=== PATIENT | male | born 1965 | race Caucasian/White ===

== ENCOUNTER 2020-04-19 17:05 | Inpatient (IN) | payer OTHER, SELFPAY ==
[2020-04-19] MEDS ORDERED: Magnesium 2 GM/50 ML BAG (IN WATER) ONE (17:44)
[2020-04-19] MEDS ORDERED: Piperacillin/Tazobactam 4.5 GM VIAL ONE (17:44)
[2020-04-19 18:28] LABS: #Lymphocytes 0.5 thou/uL (1.20-3.40); #Monocytes 0.7 thou/uL (0.11-0.59); %Basophils 0.7 % (0.0-1.0); %Eosinophils 0.2 % (0.0-10.0); %Lymphocytes 9.5 % (21.0-51.0); %Monocytes 13.2 % (0.0-10.0); %Neutrophils 76.4 % (42.0-75.0); Hemoglobin 12.4 g/dL (14.0-18.0); Mean Corpuscular Hemoglobin 32.3 pg (27.0-31.0); Mean Corpuscular Volume 97.9 fL (78.0-98.0); PTT 24.7 sec (22.9-36.1); RBC Distribution Width 18.1 % (11.5-14.5); Red Blood Cell (RBC) Count 3.84 mill/uL (4.70-6.10); White Blood Cell (WBC) Count 5.3 thou/uL (4.8-10.8)
[2020-04-19 18:32] LABS: INR-International Normal Ratio 1.1; Prothrombin Time 14.2 sec (12.0-14.7)
[2020-04-19] MEDS ORDERED: Lorazepam 2 MG/ML VIAL ONE (18:37)
[2020-04-19 18:40] LABS: Albumin 3.8 g/dL (3.5-5.0)
[2020-04-19 18:41] LABS: Chloride 101 mmol/L (98-107); Sodium 142 mmol/L (136-145)
[2020-04-19 18:42] LABS: Calcium 8.4 mg/dL (7.8-10.44); Glucose 77 mg/dL (70-105)
[2020-04-19 18:43] LABS: Globulin 3.6 g/dL (2.4-3.5); Protein, Total 7.4 g/dL (6.0-8.3)
[2020-04-19 18:44] LABS: Anion Gap 18 mmol/L (10-20); Bilirubin, Total 1.2 mg/dL (0.2-1.2); Carbon Dioxide 26 mmol/L (22-29)
[2020-04-19 18:45] LABS: Alkaline Phosphatase 114 U/L (40-110); Potassium 2.8 mmol/L (3.5-5.1)
[2020-04-19 18:46] LABS: Calc. Creatinine Clearance 0 mL/min (70-130); Estimated GFR-MDRD Greater than 90
--- NOTE | 2020-04-19 18:46 | CT ---
CT BRAIN WITHOUT CONTRAST: 04/19/20 HISTORY: Fall, trauma to the head, headache. FINDINGS: No evidence of acute infarct, hemorrhage, midline shift or abnormal extra-axial fluid collections are seen. The ventricular size is appropriate and the basilar cisterns patent. There are changes of mild chronic small vessel ischemic disease in the periventricular white matter. The bony calvarium is int act. The visualized paranasal sinuses and mastoid air cells are well aerated. IMPRESSION: No CT evidence of acute intracranial process. POS: [facility]
[2020-04-19 18:47] LABS: BUN (Urea Nitrogen) 10 mg/dL (8.4-25.7)
[2020-04-19 18:48] LABS: ALT (SGPT) 44 U/L (8-55); AST (SGOT) 59 U/L (5-34)
[2020-04-19 18:49] LABS: Hypochromia SLIGHT = 6-15 cells (100X) (0-5/hpf); Lipase 118 U/L (8-78); MDiff Complete? YES; Mean Platelet Volume 9.8 fL (7.4-10.4); Platelet Count 95 thou/uL (130-400); Platelet Morphology Comment Appears Decreased; Polychromasia SLIGHT = 2-3 cells (100X) (0-2/hpf); Target Cells SLIGHT = 2-5 cells (100X) (0-1/hpf)
[2020-04-19] MEDS ORDERED: D5 1/2 NS w/20 mEq KCL 1,000 ML IV SCH (19:15)
--- NOTE | 2020-04-19 19:54 | PDOC.FPRHP ---
- History of Present Illness Chief Complaint: BRBPR History of Present Illness: 51 y/o M with PMHx afib, etoh abuse, seizures transferred from outside ER for suspected GI bleed. Patient reports central/epigastric cramping abdominal pain that woke him up from sleep at 0600 this AM, followed by 6-7 episodes of BRBPR with some diarrhea. He also endorses some black stools. Denies hematemesis. He also c/o chest tightness that does not radiate, has been constant for the past 4 days. SOB with exertion over the past several days as well. States he is only able to ambulate around the room but not any further before becoming SOB. He drinks 5-6 beers per day, more on game days. Reports last drink was 2 days a go. Has had seizures from ETOH withdrawal in the past. Has seizure disorder since childhood for which he takes dilantin. ED Course: 1L NS, zosyn, ativan CT abd pelvis without inflammation - Allergies/Adverse Reactions Allergies Allergy/AdvReac Type Severity Reaction Status Date / Time acetaminophen [From [place]] Allergy Verified 04/19/20 22:49 haloperidol [From Haldol] Allergy Verified 04/19/20 22:49 hydrocodone [From [place]] Allergy Verified 04/19/20 22:49 - Home Medications Medication Instructions Recorded Confirmed Type Phenytoin Sodium Extended 30 mg PO DAILY 04/19/20 04/19/20 History [Dilantin] buPROPion HCl [Wellbutrin] 400 mg PO HS 04/19/20 04/19/20 History - History PMHx: seizures, arrhythmia with loop recorder, ETOH abuse with previous DTs PSHx: R shoulder surgery, appendectomy FHx: unknown Social: daily etoh use 5-6 beers per day, more on weekends; denies drug use, tobacco use - Review of Systems General: reports: fever/chills Eyes: denies: vision changes ENT: denies: nasal congestion, rhinorrhea Respiratory: reports: shortness of breath. denies: cough, congestion Cardiovascular: reports: chest pain, palpitation. denies: edema Gastrointestinal: reports: diarrhea, abdominal pain, GI bleeding. denies: nausea, vomiting, constipation Genitourinary: denies: dysuria Skin: denies: rashes Musculoskeletal: denies: pain Neurological: denies: syncope, weakness - Vital signs BP: 118/65 HR: 120 RR: 18 Tmax: 100.5 F Pox: 96 % on RA Wt: 64.2 kg - Physical Exam Constitutional: NAD, awake, alert and oriented HEENT: PERRLA, conjunctiva clear, no scleral icterus, grossly normal vision, grossly normal hearing, other (healing laceration over R eye, healing bruise over L eye) Neck: no LAD Chest: no-tender to palpation Heart: no murmurs/rubs/gallops, pulses present, no edema -Heart: tachycardia Lungs: CTAB, no respiratory distress Abdomen: soft, bowel sounds present, no masses/distention, other (mild e pigastric tenderness) Neurological: no focal deficit Skin: no rash/lesions Heme/Lymphatic: other (bruising to face as noted above) Psychiatric: other (poor health literacy, not forthcoming with information, does not appear depressed or anxious) FMR H&P: Results - Labs Result Diagrams: 04/20/20 03:19 04/20/20 03:30 Lab results: WBC 5.3 thou/uL (4.8-10.8) 04/19/20 18:03 Hgb 12.4 g/dL (14.0-18.0) L 04/19/20 18:03 Hct 37.6 % (42.0-52.0) L 04/19/20 18:03 MCV 97.9 fL (78.0-98.0) 04/19/20 18:03 Plt Count 95 thou/uL (130-400) L 04/19/20 18:03 Neutrophils % 76.4 % (42.0-75.0) H 04/19/20 18:03 Sodium 142 mmol/L (136-145) 04/19/20 18:03 Potassium 2.8 mmol/L (3.5-5.1) L* 04/19/20 18:03 Chloride 101 mmol/L (98-107) 04/19/20 18:03 Carbon Dioxide 26 mmol/L (22-29) 04/19/20 18:03 BUN 10 mg/dL (8.4-25.7) 04/19/20 18:03 Creatinine 0.77 mg/dL (0.7-1.3) 04/19/20 18:03 Glucose 77 mg/dL (70-105) 04/19/20 18:03 Lactic Acid 1.5 mmol/L (0.5-2.2) 04/19/20 18:03 Calcium 8.4 mg/dL (7.8-10.44) 04/19/20 18:03 Total Bilirubin 1.2 mg/dL (0.2-1.2) 04/19/20 18:03 AST 59 U/L (5-34) H 04/19/20 18:03 ALT 44 U/L (8-55) 04/19/20 18:03 Alkaline Phosphatase 114 U/L (40-110) H 04/19/20 18:03 Serum Total Protein 7.4 g/dL (6.0-8.3) 04/19/20 18:03 Albumin 3.8 g/dL (3.5-5.0) 04/19/20 18:03 Lipase 118 U/L (8-78) H 04/19/20 18:03 - EKG Interpretation EKG: sinus tachycardia FMR H&P: A/P - Plan GI Bleed Transferred from outside ED for presumed GI bleed after multiple episodes of BRBPR at home. CT abd/pelvis unremarkable, no obvious signs of colitis or diverticulitis on imaging. Hemoglobin stable at 12. Reports history of ulcers and polyps on previous colonoscopy, many years ago. - f/u FOBT - GI consult in AM - NPO - IV protonix 40 mg BID - Trend H/H - Rocephin & flagyl for possible infection - f/u hepatitis panel ETOH Withdrawal Last drink 2 days ago. Tremulous on exam. History of seizures related to ETOH withdrawal as well as DTs. Suspect hypertension, low-grade fever, tachycardia may be related to active ETOH withdrawal. - ASE protocol: Ativan 2mg q2hr PRN - Thiamine IV - Monitor K, Mg Sepsis Febrile, tachycardia with new diarrhea. s/p some fluid resuscitation in outside ED. s/p zosyn in ED. - f/u blood cx - f/u hepatitis panel - Rocephin & flagyl Hypokalemia K 2.8 on admission. Given 20 meQ IV in ED. Recheck 2.8. No EKG changes. - 40 meq K IV - Recheck BMP in 4 hours - Continue to monitor and replete K Seizure disorder Reports history of seizures since childhood. Subtherapeutic dilantin level today. - Resume home dilantin Pancreatitis Mildly elevated lipase although not quite 3x upper limit of normal. Given hx of etoh abuse, epigastric pain with some radiation to back, suspect an early or mild pancreatitis. - NPO -mIVF -pain control as needed FMR H&P: Upper Level - Plan Date/Time: 04/19/201952 I, [Lisa Jerome], have evaluated this patient and agree with findings/plan as outlined by real estate internship resident. Pertinent changes/additions are listed here. 54 yo M presents as tfx from [place] for suspected lower GIB. Reported 6-7 episodes of loose bloody diarrhea. At [place] they did a CT scan that showed hepatomegaly. No other acute findings. Hb was 12.4 here. Pt reports had colonoscopy several years ago which they found ulcers and polyps. Of note patient has hx of prior alcoholism with admission for DTs. He is tachycardic in the low 100s, mildly hypertensive and febrile at 100.5 Found to be hypokalemic at 2.8. Was given 40mEq KCL PO and started on D5 1/2 NST with KCl. Given 500cc NS bolus, 1mg Ativan and 2g MgS and started on zosyn 4.5g. #Suspected GIB -No gross blood on exam, FOBT collected -Will start on IV pantoprazole BID -Hemodyanmically stable, admit to tele -Monitor for clinical signs of bleeding -Rpt H/H this evening, keep NPO -CT abdomen: Hepatosteatosis. No remarks on cirrhotic changes or pancreatic inflammation -GI consulted from ER but not contacted. Will reach out in AM. #Alcohol wtihdrawal, EtOH abuse -Tremulousness, tachycardic, ASE 12 -Last drink 48 hours ago -Will get alcohol level -Give thiamine -Start ativan PRN since NPO. #Hypokalemia -2.8, initially was told replaced in ER but didn't receive any -40Kcl IV now, repeat potassium #Pancreatitis -Lipase 118. -Pt with epigastric pain, CT abdomen with no findings -Though lipase not elevated >3x ULN, with abd pain and alcohol hx will keep NPO, morphine PRN #Sepsis -Tachycardic, febrile -Likely his tachycardia & fever are from withdrawals more than infectious cause but cannot fully r/o so will continue rocephin & flagyl for tx of presumed GI illness or diverticulitis -Pending blood cultures -Stool cx if continues having loose stools #Hx of seizures -Unknown etiology since pt poor historian -get dilantin level, contine IV dilanitin dvt ppx: SCDs gi ppx: IV pantoprazole BID PCP: OOT/CC Dispo: >2 midnights Addendum - Attending - Attending Attestation Date/Time: 04/20/201928 I personally evaluated the patient and discussed the management with the team. I agree with the History, Examination, Assessment and Plan documented above with any addition or exceptions noted below.
[2020-04-19] MEDS ORDERED: Lorazepam 2 MG/ML VIAL SLOW IVP PRN (22:33)
[2020-04-19] MEDS ORDERED: Sodium Chloride 0.9% (PF) 10 ML VIAL FS PRN (22:35)
[2020-04-19 22:40] VITALS: BMI 22.1
[2020-04-19] MEDS ORDERED: Pantoprazole 40 MG VIAL IVP SCH (22:45)
[2020-04-19] MEDS ORDERED: cefTRIAXone\\ROCEPHIN 1 GM in Sodium Chloride 0.9% 100 ML IVPB SCH (23:00)
[2020-04-19] MEDS ORDERED: Diazepam 5 MG TAB PO SCH (23:30)
[2020-04-19] MEDS ORDERED: Piperacillin/Tazobactam 3.375 GM in Sodium Chloride 0.9% 100 ML IVPB SCH (23:59)
[2020-04-20] MEDS: Thiamine HCl 200 MG/2 ML VIAL SLOW IVP SCH ×2 (00:05→23:30)
[2020-04-20 00:14] LABS: HBCM Index 0.08 S/CO (0-0.79); Hep A IgM AB Non-Reactive (NonReactive); Hep A IgM S/CO 0.27 S/CO (0-0.79); Hep C IgG Ab Non-Reactive (NonReactive); Hep C Index 0.13 S/CO (0-0.79); Hepatitis B Core IgM Abs Non-Reactive (NonReactive)
[2020-04-20] MEDS: cefTRIAXone\\ROCEPHIN 1 GM in Sodium Chloride 0.9% 100 ML IVPB SCH (00:50)
[2020-04-20] MEDS: metroNIDAZOLE 500 MG in Premix Bag 1 BAG IVPB SCH ×3 (00:50→18:23)
[2020-04-20 01:08] LABS: Potassium 2.8 mmol/L (3.5-5.1)
[2020-04-20 01:34] LABS: Hep B Surf Ag NonReactive S/CO (NonReactive)
[2020-04-20] MEDS: Potassium Chloride 20 MEQ in Premix Bag 1 BAG IVPB SCH ×3 (02:10→10:31)
[2020-04-20] MEDS ORDERED: Potassium Chloride 20 MEQ/100 ML PREMIX BAG ONE (03:30)
[2020-04-20] MEDS ORDERED: Fosphenytoin Sodium 100 mg/2 ml Vial ONE (03:30)
[2020-04-20 06:05] LABS: ALT (SGPT) 30 U/L (8-55); AST (SGOT) 38 U/L (5-34); Alkaline Phosphatase 92 U/L (40-110); Anion Gap 14 mmol/L (10-20); BUN (Urea Nitrogen) 8 mg/dL (8.4-25.7); Bilirubin, Total 1.1 mg/dL (0.2-1.2); Calc. Creatinine Clearance 116 mL/min (70-130); Calcium 7.7 mg/dL (7.8-10.44); Carbon Dioxide 23 mmol/L (22-29); Chloride 104 mmol/L (98-107); Estimated GFR-MDRD Greater than 90; Globulin 2.9 g/dL (2.4-3.5); Glucose 102 mg/dL (70-105); Potassium 3.1 mmol/L (3.5-5.1); Protein, Total 5.9 g/dL (6.0-8.3); Sodium 138 mmol/L (136-145)
[2020-04-20] MEDS: Fosphenytoin Sodium 150 MG in Sodium Chloride 0.9% 50 ML IVPB SCH ×4 (09:12→20:05)
[2020-04-20] MEDS: Lactated Ringer's 1,000 ML IV SCH ×3 (09:22→23:30)
[2020-04-20] MEDS: Pantoprazole 40 MG VIAL IVP SCH ×2 (09:22→20:05)
[2020-04-20 09:58] LABS: #Lymphocytes 0.8 thou/uL (1.20-3.40); #Monocytes 0.5 thou/uL (0.11-0.59); #Neutrophils 2.5 thou/uL (1.40-6.50); %Basophils 0.8 % (0.0-1.0); %Eosinophils 1.1 % (0.0-10.0); %Lymphocytes 21.1 % (21.0-51.0); %Monocytes 12.6 % (0.0-10.0); %Neutrophils 64.4 % (42.0-75.0); Hemoglobin 10.9 g/dL (14.0-18.0); Mean Corpuscular HGB CONC 32.3 g/dL (32.0-36.0); Mean Corpuscular Hemoglobin 32.2 pg (27.0-31.0); Mean Corpuscular Volume 99.5 fL (78.0-98.0); Platelet Count 77 thou/uL (130-400); RBC Distribution Width 18.1 % (11.5-14.5); Red Blood Cell (RBC) Count 3.38 mill/uL (4.70-6.10); White Blood Cell (WBC) Count 3.9 thou/uL (4.8-10.8)
[2020-04-20 10:40] LABS: ALT (SGPT) 31 U/L (8-55); AST (SGOT) 37 U/L (5-34); Albumin 3.1 g/dL (3.5-5.0); Alkaline Phosphatase 92 U/L (40-110); Anion Gap 15 mmol/L (10-20); BUN (Urea Nitrogen) 8 mg/dL (8.4-25.7); Bilirubin, Total 1.2 mg/dL (0.2-1.2); Calc. Creatinine Clearance 123 mL/min (70-130); Carbon Dioxide 22 mmol/L (22-29); Chloride 106 mmol/L (98-107); Estimated GFR-MDRD Greater than 90; Glucose 74 mg/dL (70-105); Potassium 3.4 mmol/L (3.5-5.1); Protein, Total 6.1 g/dL (6.0-8.3); Sodium 140 mmol/L (136-145)
--- NOTE | 2020-04-20 10:51 | PRG ---
DATE OF SERVICE: 04/20/2020 Mr. Erwin was admitted with acute alcohol withdrawal as well as bright red blood per rectum. This morning, he is sitting quietly in bed, in no acute distress. In reviewing his lab results, he came in with a hemoglobin of 12.4 and hematocrit of 37.6. He is now at 10.9 and 33.6. We will consult GI to investigate further his GI bleeding. His AST was slightly elevated at 59. Total bilirubin was 1.1. From my clinical standpoint, he is stable and we will continue to monitor for any further signs of alcohol withdrawal. Job ID: [id number]
[2020-04-20] MEDS ORDERED: Potassium Chloride 40 MEQ in Sodium Chloride 0.9% 250 ML 250 ML IVPB SCH (11:15)
--- NOTE | 2020-04-20 11:33 | PDOC.FM ---
- Subjective Subjective: Reports continued epigastric pain, but sleeping comfortably. Currently NPO. Slightly tremulous, reports feeling clammy. BM with blood last night. - Objective MAR Reviewed: Yes Vital Signs & Weight: Vital Signs (12 hours) Temp Pulse Resp BP Pulse Ox 04/20/20 00:10 98.8 F 110 H 14 147/108 H 100 Weight Weight 64.2 kg Result Diagrams: 04/20/20 03:19 04/20/20 03:30 Phys Exam - Physical Examination Constitutional: NAD Neck: supple, full ROM Respiratory: no wheezing, no rales, no rhonchi, clear to auscultation bilateral Cardiovascular: RRR Gastrointestinal: soft, no distention, positive bowel sounds tender to palpation in the mid/upper epigastric region Musculoskeletal: no edema Neurological: non-focal, normal sensation Psychiatric: normal affect Skin: no rash Dx/Plan - Plan Plan: Suspected GIB -FOBT positive -on IV pantoprazole BID -pt remains hemodynamically stable -CT abdomen: Hepatosteatosis. No remarks on cirrhotic changes or pancreatic inflammation -GI consulted; will f/u recs -Hgb: 12.4 > 12 > 10.9 Alcohol wtihdrawal, EtOH abuse -ASE at 0440 of 5 -ativan PRN available -will continue to monitor Hypokalemia -2.8 > 3.1, will replete -will continue to monitor and replete as needed Pancreatitis -Lipase 118; although not 3x above normal, patient's alcohol use and abdominal pain make it likely -CT abdomen with no findings -keep NPO, morphine PRN Sepsis -Tachycardic, febrile; likely 2/2 to withdrawal, but could be infectious -due to possibly infectious cause, will continue rocephin & flagyl for tx of presumed GI illness or diverticulitis -Pending blood cultures -GI is consulted and will f/u recs History of seizures -history is unknown, but pt reports compliance with medication -subtherapeutic levels noted -contine IV dilanitin, will change to PO tomorrow IVF: mIVF Ppx: SCDs and IV pantoprazole BID PCP: out of town Dispo: pending further medical management
[2020-04-20 12:37] LABS: SARS-CoV-2 MS2 Positive; SARS-CoV-2 N Gene Negative; SARS-CoV-2 S Gene Negative; SARS-CoV-2 by NAA Not Detected (NotDetected); SARS-CoV-2 orf1ab Negative
[2020-04-20] MEDS ORDERED: GoLYTELY 4,000 ml Bottle PO SCH (17:00)
[2020-04-21] MEDS: cefTRIAXone\\ROCEPHIN 1 GM in Sodium Chloride 0.9% 100 ML IVPB SCH (01:25)
[2020-04-21] MEDS: metroNIDAZOLE 500 MG in Premix Bag 1 BAG IVPB SCH ×3 (02:05→17:20)
[2020-04-21 05:00] LABS: Band 4 % (5-11); Hemoglobin 11.2 g/dL (14.0-18.0); Lymphocytes 38 % (21-51); MDiff Complete? YES; Mean Corpuscular HGB CONC 32.6 g/dL (32.0-36.0); Mean Platelet Volume 9.7 fL (7.4-10.4); Monocytes 9 % (0-10); Neutrophil 49 % (42-75); Platelet Count 83 thou/uL (130-400); Platelet Morphology Comment Appears Decreased; RBC Distribution Width 17.8 % (11.5-14.5); Red Blood Cell (RBC) Count 3.41 mill/uL (4.70-6.10); White Blood Cell (WBC) Count 3.7 thou/uL (4.8-10.8)
[2020-04-21 05:06] LABS: ALT (SGPT) 27 U/L (8-55); AST (SGOT) 30 U/L (5-34); Albumin 3.1 g/dL (3.5-5.0); Alkaline Phosphatase 92 U/L (40-110); Anion Gap 19 mmol/L (10-20); BUN (Urea Nitrogen) Less than 4 mg/dL (8.4-25.7); Bilirubin, Total 0.8 mg/dL (0.2-1.2); Calc. Creatinine Clearance 116 mL/min (70-130); Calcium 8.1 mg/dL (7.8-10.44); Carbon Dioxide 18 mmol/L (22-29); Chloride 102 mmol/L (98-107); Estimated GFR-MDRD Greater than 90; Globulin 3.1 g/dL (2.4-3.5); Glucose 64 mg/dL (70-105); Potassium 3.4 mmol/L (3.5-5.1); Protein, Total 6.2 g/dL (6.0-8.3); Sodium 136 mmol/L (136-145)
--- NOTE | 2020-04-21 05:40 | PDOC.FM ---
- Subjective Subjective: Patient expresses that he dislikes the bowel prep and reports that he was up using the bathroom all night. Discussed with him the necessity of the bowel prep and he was understanding. Say that his upper epigastric pain has improved. Denies n/v, tremors, diaphoresis. - Objective MAR Reviewed: Yes Vital Signs & Weight: Vital Signs (12 hours) Temp Pulse Resp BP BP Pulse Ox 04/21/20 03:52 98.2 F 104 H 18 136/85 98 04/20/20 23:30 145/97 H 04/20/20 23:15 99.5 F 108 H 16 145/97 H 100 04/20/20 20:00 146/99 H Weight Weight 66 kg I&O: 04/19/20 04/20/20 04/21/20 06:59 06:59 06:59 Intake Total 1500 Output Total 850 Balance 650 Result Diagrams: 04/21/20 04:15 04/21/20 04:15 EKG Reviewed by me: Yes (SR) Phys Exam - Physical Examination Constitutional: NAD Respiratory: no wheezing, no rales, no rhonchi, clear to auscultation bilateral Cardiovascular: RRR, no significant murmur, no rub Gastrointestinal: soft, non-tender, no distention, positive bowel sounds Musculoskeletal: no edema Dx/Plan - Plan Plan: Likely GIB -FOBT positive -on IV pantoprazole BID -GI consulted; EGD and colonoscopy today -Hgb: 12.4 > 12 > 10.9 > 11.2 Alcohol wtihdrawal, EtOH abuse -ASE 7 -will continue to monitor Hypokalemia -2.8 > 3.1 > 3.4, will continue to replete as needed -will continue to monitor -also replete mag and phos Pancreatitis -Lipase 118; although not 3x above normal, patient's alcohol use and abdominal pain make it likely -CT abdomen with no findings -keep NPO, morphine PRN -likely advance diet as tolerated after EGD/Colonoscopy Sepsis -Tachycardic, febrile; likely 2/2 to withdrawal, but could be infectious -due to possibly infectious cause, will continue rocephin & flagyl for tx of presumed GI illness or diverticulitis -Pending blood cultures -GI consulted; see above -will likely dc antibiotics today History of seizures -history is unknown, but pt reports compliance with medication -subtherapeutic levels noted -contine IV dilanitin, will change to PO after procedure today IVF: mIVF Ppx: SCDs and IV pantoprazole BID PCP: out of town Dispo: pending further medical management
[2020-04-21 06:28] LABS: Magnesium 1.2 mg/dL (1.6-2.6); Phosphorus 2.2 mg/dL (2.3-4.7)
--- NOTE | 2020-04-21 07:17 | CON ---
DATE OF CONSULTATION: 04/20/2020 ADDITIONAL REFERRING PHYSICIAN: Dr. Lm Faye, [facility]. REASON FOR CONSULTATION: Abdominal pain, hematochezia, and diarrhea. HISTORY OF PRESENT ILLNESS: Mr. Tj Erwin is a very pleasant 54-year-old male, transferred from [place], [place]. He was seen in the ER there because of abdominal cramping pain, diarrhea, rectal bleeding. As there was no bed available, he was transferred to here. The patient on admission abdominal pain. No nausea or vomiting. No history of fever or chills. He has had no stool today and has no bleeding. On admission, CBC showed hemoglobin of 12.4 and hematocrit 37.6, and hemoglobin dropped down to 10.9 today, hematocrit 33.6. The patient denies recent travel outside the country. No history of recent antibiotic intake. His bowel movements are fairly regular. every other day. He has had mild hematochezia off and on and bleeding was however, this episode started two days ago and he has been passing blood clots and a large amount of bright red blood per rectum. No history of any melena. The patient has had a colonoscopy I believe more than 10 years ago and was told to be negative. There is no family history of any colon cancer. He has no relevant symptoms. ALLERGIES: HALDOL, HYDROCODONE, TYLENOL. SOCIAL HISTORY: He is a smoker. He used to drink alcohol heavily before, but he cut down the alcohol to maybe an occasional beer on game days. one 12 pack of beer until couple of years ago. No history of drug abuse. MEDICAL ILLNESSES: 1. Seizure disorder, on Dilantin. 2. Hypertension, labile in the past, but not taking any medications anymore. 3. He denies history of diabetes, any heart disease, or lung disease, etc. PAST SURGICAL HISTORY: He has had no major surgeries. He has had a colonoscopy more than 10 years ago. FAMILY HISTORY: Father of heart attack. Mother still lives in [place] and she is around 86, and she has some arthritis and some difficulty ambulation. REVIEW OF SYSTEMS: A 10-point system reviewed. CONSTITUTIONAL: No history of any weight loss. No fever or chills. He has good exercise tolerance. HEAD: No chronic headache. No TIA. EYES: No diplopia, no impaired vision. EARS: No hearing loss, no discharge. NOSE: No nose bleed. THROAT: No sore throat. No dysphagia. NECK: No stiffness or any limitation of movement. LUNGS: No chronic coughing, hemoptysis, or dyspnea. CARDIOVASCULAR: No chest pain. No palpitation. No dyspnea, orthopnea, or PND. GI: Abdominal pain, diarrhea, hematochezia. Mild nausea. GENITOURINARY: Not relevant. HEMATOLOGICAL: Not relevant. NEUROPSYCHIATRY: Not relevant. PHYSICAL EXAMINATION: GENERAL: He thin built, appears very comfortable, in no acute distress. He is awake, alert, oriented to time, place, and person. VITAL SIGNS: Afebrile. Pulse is 100, blood pressure is 135/96. HEENT: Conjunctivae are clear. NECK: Supple. No adenitis or thyromegaly noted. CARDIOVASCULAR SYSTEM: Normal heart sounds. LUNGS: Clear to auscultation. ABDOMEN: Soft and nondistended. Abdomen is mildly tender in the epigastric area. There is no rebound, no guarding. EXTREMITIES: Reveal no edema. LABORATORY DATA: Show mild anemia on admission. CBC; WBC 5300, hemoglobin 12.4, hematocrit 37.6, MCV 97.9, platelet count is 95,000. Polymorphs 74, lymphocytes 9, monocytes 13. Today, WBC 3900, hemoglobin is 10.9, hematocrit 33.6, platelet count dropping to 77,000. The liver function tests are basically normal. The bilirubin is 1.2. AST is slightly high at 59, ALT 44, alkaline phosphatase is 114, lipase 118, albumin 3.8. Potassium was 2.8 yesterday, it is coming up to 3.1 today. BUN is 8, creatinine 0.67. LFTs today, bilirubin 1.1, AST 38, ALT 30, alkaline phosphatase 92, albumin 3.0 . CLINICAL IMPRESSION: 1. A 54-year-old male, admitted with abdominal cramping pain, diarrhea, hematochezia. The patient had a negative colonoscopy more than 10 years ago. He has no family history of colon cancer. The symptoms are suggestive of possibly infectious pathology . 2. Seizure disorder. 3. Chronic anxiety. 4. Abnormal LFTs, possibly a chronic liver disease exists because of history of alcohol abuse. He is also thrombocytopenic and makes me wonder if he has chronic liver disease like cirrhosis. RECOMMENDATIONS: 1. Follow up hemoglobin and hematocrit. 2. Abdominal sonogram. 3. Colonoscopy tomorrow and possibly EGD at the same time. I did talk to Mr. Erwin about the procedure and explained about the bowel prep and the potential risks like bleeding, perforation, etc. He fully understood the procedure and agreeable. I will plan for EGD and colonoscopy tomorrow. Job ID: [id number]
[2020-04-21] MEDS: Dextrose 5 % And 0.9 % NaCl 1,000 ML IV SCH ×2 (07:38→17:40)
[2020-04-21] MEDS: Pantoprazole 40 MG VIAL IVP SCH ×2 (07:51→20:50)
[2020-04-21] MEDS ORDERED: PHOS-NAK 1 PKT PACK PO SCH (08:45)
[2020-04-21] MEDS ORDERED: Potassium Chloride 40 MEQ in Premix Bag 1 BAG IVPB SCH (08:45)
[2020-04-21] MEDS: Fosphenytoin Sodium 150 MG in Sodium Chloride 0.9% 50 ML IVPB SCH ×2 (09:46→20:50)
[2020-04-21] MEDS ORDERED: PROPOFOL 200 MG/20 ML VIAL ONE (10:28)
--- NOTE | 2020-04-21 12:05 | PRG ---
DATE OF SERVICE: 04/21/2020 Mr. Erwin is resting quietly in no distress. He has been seen in consultation by Dr. Bolton. He has recommended we do an abdominal sonogram. He also plans to do colonoscopy and possibly EGD today given his GI bleed. We have pending at this time an abdominal ultrasound. Job ID: [id number]
[2020-04-21] MEDS: Potassium Chloride 20 MEQ in Premix Bag 1 BAG IVPB SCH ×3 (12:43→20:50)
[2020-04-21] MEDS ORDERED: Ondansetron HCl/PF 4 MG/2 ML Vial IVP PRN (15:10)
[2020-04-21] MEDS ORDERED: Promethazine HCl 25 MG/ML VIAL SLOW IVP PRN (15:10)
[2020-04-21] MEDS ORDERED: Promethazine HCl 25 MG/ML VIAL IM PRN (15:10)
[2020-04-21] MEDS ORDERED: Promethazine HCl 25 MG/ML VIAL ONE (15:11)
[2020-04-21 15:14] LABS: Hematocrit 31.8 % (37.5-51.0); RBC Folate Test Component 792 ng/mL (>498)
[2020-04-21] MEDS ORDERED: Fentanyl 100 MCG/2 ML VIAL ONE (15:44)
[2020-04-21] MEDS ORDERED: Potassium Chloride 20 MEQ TAB PO SCH (16:30)
[2020-04-21] MEDS ORDERED: Ondansetron HCl/PF 4 MG in Sodium Chloride 0.9% 50 ML IVPB PRN (17:07)
[2020-04-21] MEDS ORDERED: Ondansetron ODT 4 MG TAB PO PRN (17:11)
[2020-04-21] MEDS: Lactated Ringer's 1,000 ML IV SCH (17:33)
--- NOTE | 2020-04-21 19:22 | OP ---
DATE OF PROCEDURE: 04/21/2020 PROCEDURE PERFORMED: Endoscopy. PREOPERATIVE DIAGNOSES: Hematochezia, diarrhea, and abdominal pain, epigastric. DESCRIPTION OF PROCEDURE: Informed consent was obtained from the patient. He was sedated with total intravenous anesthesia. The bite block was placed, and the endoscope was advanced easily to the second portion of the duodenum, and retroflexion was performed in the stomach. The esophagus had grade D erosive esophagitis circumferentially around the distal 3 to 4 cm of the esophagus. Biopsies were obtained from this area. There is mild stricturing of the distal esophagus. However, the scope could be passed through. The stomach had erythematous gastritis in the antrum. Biopsies were obtained to rule out H pylori. The body of the stomach and retroflexed views in the stomach were unremarkable. There was a 3 cm hiatal hernia. There was erythematous duodenitis in the first portion of the duodenum, and the second portion of the duodenum was normal. Random biopsies were taken from the duodenum to rule out celiac disease. The patient was turned around. Rectal exam was performed and was normal. The preparation quality was adequate. The colonoscope was advanced without difficulty to the terminal ileum. The mucosa of the terminal ileum was normal. The ileocecal valve and appendiceal orifice were clearly identified. There was moderate diverticulosis throughout the colon. Random biopsies were obtained from the ascending, transverse, descending, and sigmoid colon. The colonoscopy was otherwise normal. Retroflexed views in the rectum revealed small to moderate internal hemorrhoids. IMPRESSION: 1. Severe grade D erosive circumferential esophagitis in the distal esophagus. 2. Erythematous antral gastritis and duodenitis. 3. Diverticulosis throughout the colon. 4. Moderate internal hemorrhoids. 5. Otherwise normal colonoscopy to the terminal ileum. RECOMMENDATIONS: 1. Advance diet. 2. Await histopathology. 3. Obtain stool studies if the diarrhea persists. Job ID: [id number]
[2020-04-21] MEDS: Morphine 2 MG/ML VIAL SLOW IVP PRN (19:55)
[2020-04-21] MEDS ORDERED: Dextrose 50% Abboject 50 ML SYRINGE ONE (20:48)
[2020-04-21] MEDS: Thiamine HCl 200 MG/2 ML VIAL SLOW IVP SCH (23:25)
[2020-04-22] MEDS: Morphine 2 MG/ML VIAL SLOW IVP PRN ×4 (00:10→20:24)
[2020-04-22] MEDS: cefTRIAXone\\ROCEPHIN 1 GM in Sodium Chloride 0.9% 100 ML IVPB SCH (00:10)
[2020-04-22] MEDS: metroNIDAZOLE 500 MG in Premix Bag 1 BAG IVPB SCH (00:10)
[2020-04-22] MEDS: Lactated Ringer's 1,000 ML IV SCH (05:20)
--- NOTE | 2020-04-22 08:40 | PDOC.FM ---
- Subjective Subjective: Reports some nausea after his procedure yesterday, limited PO intake, and continued diarrhea after bowel prep. Denies blood in his stool, chest pain, SOB. Reports improvement in his abdominal pain. - Objective MAR Reviewed: Yes Vital Signs & Weight: Vital Signs (12 hours) Temp Pulse Resp BP BP Pulse Ox 04/22/20 04:00 98.7 F 77 16 141/77 H 98 04/21/20 23:20 98.6 F 89 14 115/74 115/74 97 Weight Weight 64.1 kg I&O: 04/21/20 04/22/20 04/23/20 06:59 06:59 06:59 Intake Total 1500 2800 Output Total 850 600 Balance 650 2200 Result Diagrams: 04/21/20 04:15 04/21/20 04:15 EKG Reviewed by me: Yes (SR) Phys Exam - Physical Examination Constitutional: NAD Respiratory: no wheezing, no rales, no rhonchi, clear to auscultation bilateral Cardiovascular: RRR, no significant murmur, no rub Gastrointestinal: soft, non-tender, no distention, positive bowel sounds Musculoskeletal: no edema Neurological: non-focal, moves all 4 limbs Dx/Plan - Plan Plan: GI Bleed -FOBT positive -on IV pantoprazole BID -GI consulted; EGD and colonoscopy on 04/21 -Endoscopy: severe grade D erosive circumferential esophagitis, erythematous antral gastritis and duodenitis, diverticulosis, mod. internal hemorrhoids -Hgb stable; unsure of today's level as patient is refusing labs this morning Alcohol abuse -ASE protocol -monitor for withdrawal -ASE of 5 Hypokalemia -refusing labs this morning -will continue to monitor -also replete mag and phos Pancreatitis, improved -attempted to trend lipase, but patient is refusing all labs this am -now has regular diet Sepsis -Tachycardic, febrile; likely 2/2 to withdrawal, infectious cause unlikely -blood cx: NGTD -GI consulted; see above -abx dc'd on 04/22 History of seizures -history is unknown, but pt reports compliance with medication -subtherapeutic levels noted -home meds IVF: SL Ppx: SCDs and IV pantoprazole BID PCP: out of town Dispo: pending further medical management and GI recs
[2020-04-22] MEDS: Pantoprazole 40 MG VIAL IVP SCH ×2 (09:19→20:23)
[2020-04-22 10:56] LABS: #Eosinphils 0.1 thou/uL (0.0-0.7); #Lymphocytes 0.8 thou/uL (1.20-3.40); #Monocytes 0.6 thou/uL (0.11-0.59); #Neutrophils 3.8 thou/uL (1.40-6.50); %Basophils 0.6 % (0.0-1.0); %Eosinophils 1.5 % (0.0-10.0); %Lymphocytes 15.5 % (21.0-51.0); %Monocytes 11.8 % (0.0-10.0); %Neutrophils 70.6 % (42.0-75.0); Hemoglobin 11.8 g/dL (14.0-18.0); Mean Corpuscular HGB CONC 30.8 g/dL (32.0-36.0); Mean Corpuscular Hemoglobin 31.9 pg (27.0-31.0); Mean Platelet Volume 9.3 fL (7.4-10.4); Platelet Count 106 thou/uL (130-400); Red Blood Cell (RBC) Count 3.68 mill/uL (4.70-6.10); White Blood Cell (WBC) Count 5.4 thou/uL (4.8-10.8)
[2020-04-22 11:02] LABS: ALT (SGPT) 23 U/L (8-55); AST (SGOT) 23 U/L (5-34); Albumin 3.2 g/dL (3.5-5.0); Alkaline Phosphatase 95 U/L (40-110); Anion Gap 20 mmol/L (10-20); BUN (Urea Nitrogen) Less than 4 mg/dL (8.4-25.7); Bilirubin, Total 0.6 mg/dL (0.2-1.2); Calc. Creatinine Clearance 116 mL/min (70-130); Calcium 8.2 mg/dL (7.8-10.44); Carbon Dioxide 19 mmol/L (22-29); Chloride 101 mmol/L (98-107); Estimated GFR-MDRD Greater than 90; Globulin 3.2 g/dL (2.4-3.5); Glucose 74 mg/dL (70-105); Magnesium 1.3 mg/dL (1.6-2.6); Potassium 3.3 mmol/L (3.5-5.1); Protein, Total 6.4 g/dL (6.0-8.3); Sodium 137 mmol/L (136-145)
[2020-04-22 11:12] LABS: MDiff Complete? YES; Platelet Morphology Comment Appears Decreased; Polychromasia SLIGHT = 2-3 cells (100X) (0-2/hpf)
[2020-04-22 11:26] LABS: Lipase 54 U/L (8-78); Phosphorus 2.8 mg/dL (2.3-4.7)
--- NOTE | 2020-04-22 11:28 | ULT ---
EXAM: US Gallbladder RUQ CLINICAL HISTORY: Cirrhosis. COMPARISON: None. FINDINGS: Pancreas: Obscured by bowel gas Liver:Heterogeneous echotexture which may be due to hepatic steatosis or hepatocellular disease. Subs equent limited evaluation for hepatic masses and intrahepatic biliary dilatation. Right hepatic lobe: 14.3 cm Gallbladder: No sonographic evidence of cholelithiasis, gallbladder wall thickening or pericholecysti c fluid. Rodriguez's sign:Negative Portal Vein: Patent. Appropriate directional flow Bile ducts: 0.51 cm common bile duct diameter Right kidney: No hydronephrosis. Right kidney measures 6.9 x 5.4 x 10.6 cm in length. IMPRESSION: 1. Heterogeneous echotexture of the liver which may be due to hepatic steatosis or hepatocellular dis ease. Correlation made with an abdomen pelvis CT 04/19/2020 favors hepatic steatosis.
--- NOTE | 2020-04-22 11:39 | PRG ---
DATE OF SERVICE: 04/22/2020 Mr. Erwin is very pleasant this morning. He is sitting in bed, in no distress. He underwent endoscopy and colonoscopy yesterday per Dr. Yoon. He had findings of erosive esophagitis in the distal esophagus along with antral gastritis and duodenitis. He had diverticulosis throughout the colon and moderate internal hemorrhoids. We will continue him on PPI, advance his diet in anticipation of possibly discharging him tomorrow. On admission, he did have some elevations of his AST, though not his ALT. Given his drinking history, I think it would be appropriate to do a right upper quadrant ultrasound to make certain there are no changes consistent with cirrhosis. Job ID: [id number]
[2020-04-22] MEDS ORDERED: PHOS-NAK 1 PKT PACK PO SCH (12:30)
[2020-04-22] MEDS ORDERED: Potassium Chloride 20 MEQ TAB PO SCH (12:30)
--- NOTE | 2020-04-22 15:25 | PDOC.BPN ---
- Brief Progress Note TRANSITION OF CARE NOTE Patient is a 54 yo male with PMHx of seizure disorder and alcohol use presents to ED on 04/19 with bright red blood per rectum. The patient also had signs alcohol withdrawal, sepsis, and pancreatitis patient was admitted for further workup. CT abd pelvis showed hepatosteatosis, no remarks on cirrhosis or pancrea tic inflammation. Patient received ceftriaxone, metronidazole and blood cultures for sepsis workup which was negative. ASE protocol was in place and patient was monitored for signs/symptoms of withdrawal with ativan available PRN. Patient was initially kept NPO for pancreastitis concerns and pending GI workup. GI was consulted and patient underwent endoscopy which showed grade D severe erosive esophagitis, gastritis, duodenitis, diverticulosis, and internal hemorrhoids. Multiple biopsies were taken. Abdominal US showed findings consistent with hepatic steatosis or hepatocellular disease. Based on GI recommendations, patient switched to PO meds and given diet. Antibiotics were also discontinued on 04/22. If patient continues to have diarrhea, could consider getting stool studies. Will continue to follow up GI recs.
[2020-04-22] MEDS ORDERED: hydrOXYzine 10 MG TAB PO SCH (22:30)
[2020-04-22] MEDS: Thiamine HCl 200 MG/2 ML VIAL SLOW IVP SCH (22:33)
[2020-04-23] MEDS: Morphine 2 MG/ML VIAL SLOW IVP PRN ×3 (01:12→15:27)
--- NOTE | 2020-04-23 06:29 | PDOC.FM ---
- Subjective Subjective: Pt resting in bed. Complains of worsening anxiety at night and night sweats. Other than that no complaints. He does endorse dark stools and occasional abdominal pain, but no CP, SOB. Tolerating PO without difficulty. As per tele, patients pulse was 97-140s overnight sinus rhythm. 90s on this morning. - Objective MAR Reviewed: Yes Vital Signs & Weight: Vital Signs (12 hours) Temp Pulse Resp BP BP Pulse Ox 04/23/20 04:00 98.2 F 97 13 139/97 H 98 04/22/20 23:45 131/98 H 04/22/20 20:00 135/90 04/22/20 19:20 95 04/22/20 19:15 99.5 F 118 H 13 135/90 95 Weight Weight 64.1 kg I&O: 04/21/20 04/22/20 04/23/20 06:59 06:59 06:59 Intake Total 1500 2800 700 Output Total 850 600 650 Balance 650 2200 50 Result Diagrams: 04/22/20 10:26 04/23/20 10:01 Phys Exam - Physical Examination Constitutional: NAD Neck: supple, full ROM Respiratory: no wheezing, clear to auscultation bilateral Cardiovascular: RRR, no significant murmur Gastrointestinal: soft, non-tender, positive bowel sounds Musculoskeletal: no edema Neurological: moves all 4 limbs Psychiatric: normal affect, A&O x 3 Skin: no rash Dx/Plan - Plan Plan: GI Bleed -FOBT positive -on IV pantoprazole BID -GI consulted; EGD and colonoscopy on 04/21 -Endoscopy: severe grade D erosive circumferential esophagitis, erythematous antral gastritis and duodenitis, diverticulosis, mod. internal hemorrhoids -Hgb stable; unsure of today's level as labs are not back yet will monitor Alcohol abuse -ASE protocol -monitor for withdrawal -ASE of 8 overnight Hypokalemia -refusing labs this morning -will continue to monitor -also replete mag and phos Pancreatitis, improved -tolerating PO, improved pain SIRS, resolved -Tachycardic, febrile on admission; likely 2/2 to withdrawal, infectious cause unlikely. -blood cx: NGTD -GI consulted; see above -abx dc'd on 04/22 History of seizures -history is unknown, but pt reports compliance with medication -subtherapeutic levels noted -home meds IVF: SL Ppx: SCDs and IV pantoprazole BID PCP: out of town Dispo: pending further medical management and GI recs
--- NOTE | 2020-04-23 08:16 | PRG ---
DATE OF SERVICE: 04/22/2020 SUBJECTIVE: This 54-year-old male hospitalized with diarrhea, abdominal pain, hematochezia. The patient had mild thrombocytopenia. He has history of alcohol Abdominal sonogram showed no liver masses and no evidence of liver cirrhosis. A colonoscopy done by Dr. Yoon yesterday showed no active colitis. Exam was basically unremarkable up to ileum. It was felt that patient mostly has infectious diarrhea. EGD which revealed severe erosive esophagitis. The patient is doing well today. No abdominal pain. No nausea or vomiting. Tolerating diet. OBJECTIVE: GENERAL: Appears comfortable. VITAL SIGNS: Stable, afebrile. Pulse is 113, blood pressure is 134/87. CARDIOVASCULAR: ABDOMEN: LABORATORY DATA: potassium 3.3, otherwise bilirubin 1.3. LFTs normal. RECOMMENDATIONS: 1. Diet as tolerated. 2. May consider discharge home tomorrow on PPI. Job ID: [id number]
[2020-04-23] MEDS: Pantoprazole 40 MG VIAL IVP SCH (09:40)
[2020-04-23 10:15] VITALS: TEMP 98.5
[2020-04-23 10:55] LABS: Albumin 3.1 g/dL (3.5-5.0)
[2020-04-23 10:56] LABS: Chloride 103 mmol/L (98-107); Potassium 3.7 mmol/L (3.5-5.1); Sodium 136 mmol/L (136-145)
[2020-04-23 10:57] LABS: Calcium 8.1 mg/dL (7.8-10.44); Glucose 94 mg/dL (70-105)
[2020-04-23 10:58] LABS: Globulin 3.1 g/dL (2.4-3.5); Protein, Total 6.2 g/dL (6.0-8.3)
[2020-04-23 10:59] LABS: Anion Gap 21 mmol/L (10-20); Bilirubin, Total 0.5 mg/dL (0.2-1.2); Carbon Dioxide 16 mmol/L (22-29)
[2020-04-23 11:00] LABS: Alkaline Phosphatase 90 U/L (40-110)
[2020-04-23 11:01] LABS: Calc. Creatinine Clearance 124 mL/min (70-130); Estimated GFR-MDRD Greater than 90; Phosphorus 3.1 mg/dL (2.3-4.7)
[2020-04-23 11:02] LABS: BUN (Urea Nitrogen) 4 mg/dL (8.4-25.7)
[2020-04-23 11:03] LABS: ALT (SGPT) 20 U/L (8-55); AST (SGOT) 19 U/L (5-34); Magnesium 1.3 mg/dL (1.6-2.6)
[2020-04-23 12:49] LABS: Hemoglobin 12.1 g/dL (14.0-18.0); Mean Corpuscular HGB CONC 32.1 g/dL (32.0-36.0); Mean Corpuscular Hemoglobin 32.5 pg (27.0-31.0); Mean Platelet Volume 10.3 fL (7.4-10.4); Platelet Count 78 thou/uL (130-400); RBC Distribution Width 18.6 % (11.5-14.5); Red Blood Cell (RBC) Count 3.73 mill/uL (4.70-6.10); White Blood Cell (WBC) Count 4.9 thou/uL (4.8-10.8)
[2020-04-23 13:17] LABS: Anisocytosis SLIGHT = 6-15 cells (100X) (0-5/hpf); Eosinophils 4 % (0-10); Lymphocytes 17 % (21-51); MDiff Complete? YES; Monocytes 8 % (0-10); Neutrophil 68 % (42-75); Ovalocytes SLIGHT = 2-5 cells (100X) (0-1/hpf); Platelet Morphology Comment Appears Decreased; Polychromasia SLIGHT = 2-3 cells (100X) (0-2/hpf)
[2020-04-23] MEDS ORDERED: Magnesium 2 GM/50 ML 2 GM in Sodium Chloride 0.9% 100 ML IVPB SCH (14:15)
[2020-04-23 15:12] LABS: Anion Gap 17 mmol/L (10-20); BUN (Urea Nitrogen) Less than 4 mg/dL (8.4-25.7); Calc. Creatinine Clearance 126 mL/min (70-130); Calcium 8.4 mg/dL (7.8-10.44); Carbon Dioxide 20 mmol/L (22-29); Chloride 102 mmol/L (98-107); Estimated GFR-MDRD Greater than 90; Glucose 106 mg/dL (70-105); Potassium 3.5 mmol/L (3.5-5.1); Sodium 135 mmol/L (136-145)
[2020-04-23] MEDS ORDERED: Magnesium 2 GM/50 ML 2 GM in Premix Bag 1 BAG IVPB SCH (15:45)
[2020-04-23] MEDS ORDERED: hydrOXYzine 25 MG TAB PO PRN (16:17)
[2020-04-23 16:45] VITALS: BP 146/99
--- NOTE | 2020-04-23 18:34 | PRG ---
DATE OF SERVICE: 04/23/2020 Please see the note from which I agree. The patient was seen, evaluated, discussed, and examined with the residents by bedside. This gentleman is hospital day 4 for GI bleed, and GI scoped and found a lot of changes in his stomach in his esophagus. On question if he has little bit more elevated pulse, little more tremulous, little more anxious, although he really was not at all in the room. When I saw him, chest is clear, cardiovascular is regular rate and rhythm. Pulse rate in the 80s. No tremor from minimum. So as long as GI says he can go, he will be discharged on a Protonix twice daily, and will be discharged on Ativan to take as needed. It has been about 7 days since he has drunk alcohol. He has been going to counselors and AA before and certainly encouraged him to do that again. Job ID: [id number]
--- NOTE | 2020-04-24 23:18 | DIS ---
DATE OF ADMISSION: 04/19/2020 DATE OF DISCHARGE: 04/23/2020 RESIDENT: Elvi Umana, PGY-1. ADMITTING ATTENDING: Dr. Pruitt. DISCHARGE ATTENDING: Dr. Lamb CONSULTS: Gastroenterology and Case Management. PROCEDURES: Brain CT, which showed no evidence of acute intracranial process. EGD and colonoscopy. Please see below for details. PRIMARY DIAGNOSIS: Gastrointestinal bleed. SECONDARY DIAGNOSES: 1. Alcohol abuse/withdrawal. 2. GI bleed 3. Pancreatitis. 4. Systemic inflammatory response syndrome. 5. History of seizures. DISCHARGE MEDICATIONS: 1. Atarax 25 mg p.o. q.4 p.r.n. 2. Protonix 20 mg p.o. b.i.d. 3. Bupropion 400 mg p.o. at bedtime. 4. Dilantin 30 mg p.o. daily. DISCONTINUED MEDICATIONS: None. HISTORY OF PRESENT ILLNESS/HOSPITAL COURSE: Please see brief progress note by Dr. Karly Bruce on 04/22/2020. Patient remained in the hospital for one additional day after this transition of care note was published. There were no acute events overnight. He was tolerating p.o. without difficulty. He endorsed black stools. However, GI was on board and was aware. Vitals remained stable. DISPOSITION: Stable. DISCHARGE INSTRUCTIONS: 1. Location: Home. 2. Diet: Heart healthy diet. 3. Activity: Activity as tolerated. 4. Followup: Follow up with PCP and GI, Dr. Bolton in 2 to 3 weeks. Job ID: [id number] MTDD
--- NOTE | 2020-04-26 04:44 | PQF ---
Dear : Aldo Lamb Date 04/26/20 Please exercise your independent, professional judgment in responding to the clarification form. Clinical indicators are provided on the bottom of this form for your review Can you please further clarify the etiology of GI bleed? Please check appropriate box(es): [ ] Erosive gastritis with bleeding [ ] Gastritis with bleeding [ ] Duodenitis with bleeding [ ] Diverticulitis of the colon with bleeding [ ] Internal hemorrhoids [ ] Other diagnosis please specify [ ] Unable to determine Physician Signature: Date/Time: For continuity of documentation, please document condition throughout progress notes and discharge summary. Thank You. To be completed by CDI/Coding staff for physician review: Present Clinical Indicators - Signs / Symptoms / Labs Results and Location in Medical Record [ x ] The stomach had erythematous gastritis in the antrum OP report pg.1 [ x ] Severe grade D erosive circumferential esophagitis in the distal esophagus OP report pg.1 [ x ] Diverticulosis throughout the colon OP report pg.1 [ x ] Moderate internal hemorrhoids OP report pg.1 [ x ] BRBPR,epigastric cramping, abdominal pain H and P pg.1 [ x ] Hematochezia, diarrhea Consult pg.1 04/20 [ x ] Primary Diagnosis: Gastrointestinal bleed DS pg.1 Present Risk Factors Results and Location in Medical Record [ x ] Alcohol abuse H and P pg.1 [ x ] Pancreatitis H and P pg.4 [ x ] ETOH withdrawal H and P pg.4 [ x ] Smoker Consult 04/20 Present Treatments Results and Location in Medical Record [ x ] GI consult Dr. Yoon OP report pg.1 [ x ] EGD with biopsy OP report pg.1 [ x ] Colonoscopy with biopsy OP report pg.1 [ x ] IV fluids OCT [ x ] Abdomen ultrasound H and P pg.4 [ x ] Pantoprazole 40mg IV MAR 04/19 [employer] Maintainer Signature: Juan Carlos Apple Phone #: ext [phone] Date: 04/26/20 This is a permanent part of the Medical Record [facility]
== END 2020-04-23 17:57 | disposition home or self-care (01) | DRG 377 ==
LOC: ERS 17:05 → 2NO 20:02
PROVIDERS: ADMIT Emergency Medicine; ATTEND Emergency Medicine
PROC: 0DB78ZX Excision of Stomach, Pylorus, Via Natural or Artificial Opening Endoscopic, Diagnostic (ICD-10-PCS; principal; 2020-04-21)
PROC: 0DBK8ZX Excision of Ascending Colon, Via Natural or Artificial Opening Endoscopic, Diagnostic (ICD-10-PCS; 2020-04-21)
PROC: 0DBL8ZX Excision of Transverse Colon, Via Natural or Artificial Opening Endoscopic, Diagnostic (ICD-10-PCS; 2020-04-21)
PROC: 0DBN8ZX Excision of Sigmoid Colon, Via Natural or Artificial Opening Endoscopic, Diagnostic (ICD-10-PCS; 2020-04-21)
PROC: 0DBM8ZX Excision of Descending Colon, Via Natural or Artificial Opening Endoscopic, Diagnostic (ICD-10-PCS; 2020-04-21)
DX: K92.2 Gastrointestinal hemorrhage, unspecified (principal); K85.90 Acute pancreatitis without necrosis or infection, unspecified; F10.239 Alcohol dependence with withdrawal, unspecified; R65.10 Systemic inflammatory response syndrome (SIRS) of non-infectious origin without acute organ dysfunction; E78.5 Hyperlipidemia, unspecified; Z20.828 Contact with and (suspected) exposure to other viral communicable diseases; F25.9 Schizoaffective disorder, unspecified; F17.210 Nicotine dependence, cigarettes, uncomplicated; I10 Essential (primary) hypertension; K21.0 Gastro-esophageal reflux disease with esophagitis; K29.70 Gastritis, unspecified, without bleeding; K29.80 Duodenitis without bleeding; K57.30 Diverticulosis of large intestine without perforation or abscess without bleeding; K64.8 Other hemorrhoids; E87.6 Hypokalemia; K76.0 Fatty (change of) liver, not elsewhere classified; D69.6 Thrombocytopenia, unspecified; I48.91 Unspecified atrial fibrillation; G43.909 Migraine, unspecified, not intractable, without status migrainosus; Z88.8 Allergy status to other drugs, medicaments and biological substances; Z88.5 Allergy status to narcotic agent; Z79.899 Other long term (current) drug therapy; Z90.49 Acquired absence of other specified parts of digestive tract
CPT/HCPCS: 36415; 36416; 70450; 76705; 80053; 80074; 80185; 80307; 82274; 82607; 82747; 83605; 83690; 83735; 84100; 84132; 84484; 85025; 85610; 85730; 86850; 86900; 86901; 87040; 87635; 88305; 88312; 88313; 88341; 88342; 96365; 96366; 96367; 96375; C9113; J0696; J2060; J2270; J2543; J2550; J2704; J3010; J3411; J3475; J3480; J3490; J7050; Q0162; Q2009; U0003

== ENCOUNTER 2020-04-24 23:48 | Emergency (ER) | payer SELFPAY ==
[2020-04-25] MEDS ORDERED: Lidocaine Viscous Sol 2% 15 ml UD Cup ONE (01:26)
[2020-04-25] MEDS ORDERED: Mag-Al 1200 mg/1200 mg/30 ML UDCUP ONE (01:26)
[2020-04-25 01:43] LABS: Hemoglobin 13.9 g/dL (14.0-18.0); Mean Corpuscular HGB CONC 33.1 g/dL (32.0-36.0); Mean Corpuscular Hemoglobin 33.6 pg (27.0-31.0); Mean Platelet Volume 7.9 fL (7.4-10.4); Platelet Count 200 thou/uL (130-400); Red Blood Cell (RBC) Count 4.13 mill/uL (4.70-6.10); White Blood Cell (WBC) Count 3.7 thou/uL (4.8-10.8)
[2020-04-25 01:52] LABS: Eosinophils 7 % (0-10); Lymphocytes 40 % (21-51); MDiff Complete? YES; Monocytes 8 % (0-10); Neutrophil 44 % (42-75)
[2020-04-25 01:53] LABS: ALT (SGPT) 35 U/L (8-55); AST (SGOT) 55 U/L (5-34); Albumin 3.8 g/dL (3.5-5.0); Alkaline Phosphatase 103 U/L (40-110); Anion Gap 21 mmol/L (10-20); BUN (Urea Nitrogen) Less than 4 mg/dL (8.4-25.7); Bilirubin, Total 0.4 mg/dL (0.2-1.2); Calc. Creatinine Clearance 0 mL/min (70-130); Calcium 8.2 mg/dL (7.8-10.44); Carbon Dioxide 20 mmol/L (22-29); Chloride 108 mmol/L (98-107); Estimated GFR-MDRD Greater than 90; Globulin 3.8 g/dL (2.4-3.5); Glucose 72 mg/dL (70-105); Lipase 30 U/L (8-78); Potassium 3.8 mmol/L (3.5-5.1); Protein, Total 7.6 g/dL (6.0-8.3); Sodium 145 mmol/L (136-145)
[2020-04-25 01:54] LABS: Acetaminophen Less than 6.0 mcg/mL (10.0-30.0); Alcohol 355 mg/dL (Less than 10); CK (CPK) 38 U/L (30-200); Salicylate Less than 8.0 mg/dL (15.0-30.0)
== END 2020-04-25 04:40 | disposition home or self-care (01) ==
LOC: ERS 23:48
DX: F10.129 Alcohol abuse with intoxication, unspecified (principal)
CPT/HCPCS: 36415; 80053; 80307; 82550; 83690; 84443; 85025; 99284

== ENCOUNTER 2020-04-28 18:53 | Inpatient (IN) | payer OTHER, SELFPAY ==
[~2020-04-28 18:53] MED LIST: Iopamidol-370 76% 500 ML 1 ML ONE
[2020-04-28] MEDS ORDERED: Lorazepam 2 MG/ML VIAL ONE ×2 (19:25→21:12)
[2020-04-28] MEDS ORDERED: Ondansetron PF 4 MG/2 ML Vial ONE (19:25)
[2020-04-28] MEDS ORDERED: Pantoprazole 40 MG VIAL ONE (19:26)
[2020-04-28] MEDS ORDERED: Cefepime 2 GM VIAL ONE (19:26)
[2020-04-28] MEDS ORDERED: Multivitamins, Adult 10 ML, Thiamine HCl 100 MG, Folic Acid 1 MG in Dextrose 5 %-0.45 %... IV ONE (19:30)
--- NOTE | 2020-04-28 20:03 | CT ---
CT CERVICAL SPINE: 04/28/20 PROVIDED CLINICAL HISTORY: Fall. FINDINGS: There is no evidence for fracture or traumatic subluxation. No prevertebral soft tissue swelling appa rent. The visualized lung apices appear clear. IMPRESSION: No evidence for fracture or traumatic subluxation. POS: NIRALI
[2020-04-28 20:06] LABS: ALT (SGPT) 47 U/L (8-55); AST (SGOT) 82 U/L (5-34); Albumin 4.3 g/dL (3.5-5.0); Alkaline Phosphatase 139 U/L (40-110); Anion Gap 35 mmol/L (10-20); BUN (Urea Nitrogen) 8 mg/dL (8.4-25.7); Bilirubin, Total 0.6 mg/dL (0.2-1.2); Calc. Creatinine Clearance 0 mL/min (70-130); Calcium 8.5 mg/dL (7.8-10.44); Carbon Dioxide 13 mmol/L (22-29); Chloride 105 mmol/L (98-107); Estimated GFR-MDRD 88; Globulin 4.2 g/dL (2.4-3.5); Glucose 71 mg/dL (70-105); Lipase 33 U/L (8-78); Magnesium 1.8 mg/dL (1.6-2.6); Potassium 5.5 mmol/L (3.5-5.1); Protein, Total 8.5 g/dL (6.0-8.3); Sodium 147 mmol/L (136-145)
--- NOTE | 2020-04-28 20:10 | CT ---
CT FACIAL BONES: 04/28/20 PROVIDED CLINICAL HISTORY: Fall. FINDINGS: No evidence for fracture. The globes and orbital contents appear unremarkable. The paranasal sinuses are free of significant opacity. IMPRESSION: No evidence for fracture. POS: NIRALI
[2020-04-28 20:37] LABS: #Lymphocytes 0.4 thou/uL (1.20-3.40); #Monocytes 0.2 thou/uL (0.11-0.59); #Neutrophils 3.3 thou/uL (1.40-6.50); %Basophils 0.5 % (0.0-1.0); %Eosinophils 0.5 % (0.0-10.0); %Lymphocytes 10.3 % (21.0-51.0); %Monocytes 3.9 % (0.0-10.0); %Neutrophils 84.8 % (42.0-75.0); Hemoglobin 13.4 g/dL (14.0-18.0); Mean Corpuscular HGB CONC 31.9 g/dL (32.0-36.0); Mean Corpuscular Hemoglobin 32.8 pg (27.0-31.0); Mean Platelet Volume 8.1 fL (7.4-10.4); Platelet Count 218 thou/uL (130-400); RBC Distribution Width 18.2 % (11.5-14.5); Red Blood Cell (RBC) Count 4.08 mill/uL (4.70-6.10); White Blood Cell (WBC) Count 3.9 thou/uL (4.8-10.8)
--- NOTE | 2020-04-28 20:50 | RAD ---
SEMIUPRIGHT FRONTAL CHEST RADIOGRAPH: Date: 04/28/2020 COMPARISON: 04/19/2020. HISTORY: Seizures, DTs. FINDINGS: Stable tortuosity of the descending thoracic aorta, right shoulder arthroplasty, and embedded loop re bret in left lower hemithorax. No pneumothorax, pleural fluid, focal consolidation, or alveolar joaquim ma. IMPRESSION: No acute findings. POS: SIM
--- NOTE | 2020-04-28 20:52 | CT ---
CT OF THE HEAD WITHOUT CONTRAST: Date: 04/28/2020 COMPARISON: 04/19/2020. HISTORY: Seizures. TECHNIQUE: Axial CT imaging at 5 mm intervals from vertex through skull base without contrast. FINDINGS: The imaged paranasal sinuses and mastoid air cells are well aerated. There is no displaced calvarial fracture, intracranial hemorrhage, midline shift, or mass effect. No ventricular enlargement. There is mild soft tissue swelling involving the scalp anteriorly in the supraorbital region, right g reater than left. IMPRESSION: Anterior superior frontal scalp swelling. No associated fracture or intracranial hemorrhage. POS: SIM
[2020-04-28 20:56] LABS: Acetaminophen Less than 6.0 mcg/mL (10.0-30.0); Alcohol 380 mg/dL (Less than 10); Salicylate Less than 8.0 mg/dL (15.0-30.0)
--- NOTE | 2020-04-28 20:59 | CT ---
CT ABDOMEN AND PELVIS WITH IV CONTRAST: Date: 04/28/2020 PROVIDED CLINICAL HISTORY: Abdominal pain. FINDINGS: Comparison with 04/19/2020. The visualized lung bases are free of significant opacity. Severe hepatic steatosis is redemonstrated. The solid abdominal organs demonstrate an otherwise unrem arkable unenhanced CT appearance. There is no bowel dilatation, inflammatory fat stranding, free fluid, or free air apparent. There is no evidence for appendicitis. The gallbladder is not significantly distended. The regional major vascular structures appear unremarkable. The osseous structures demonstrate no con cerning lytic or blastic lesions. Multiple stable compression deformities involving the lumbar spine are again noted. IMPRESSION: No evidence for an acute process. POS: NIRALI
[2020-04-28] MEDS ORDERED: Vancomycin 1 GM/200 ML BAG ONE (21:12)
--- NOTE | 2020-04-28 21:18 | PDOC.FPRHP ---
- History of Present Illness Chief Complaint: Seizure History of Present Illness: Patient is a 54 yo male with PMH of alcohol abuse and a seizure disorder who presents to the ED after seizure. Due to intoxication, history is obtained from check out with minimal information from patient. Per reports, patient had a seizure outside of the [place] resulting in him hitting his head on concrete. Of note, the patient was recently discharged from the hospital for GI bleed and alcohol withdrawal. He reports minimal water intake since his discharge from the hospital and continued alcohol abuse. Reports abdominal pain. Denies hematemesis, hematochezia. Reports decreased urinary output. ED Course: 4 L NS, Banana bag, 3 mg Ativan, 8 mg zofran, 80 mg protonix, 2 g cefepime, 1 g vanc, 1500 mg of kepra - Allergies/Adverse Reactions Allergies Allergy/AdvReac Type Severity Reaction Status Date / Time acetaminophen [From Edcouch] Allergy Verified 04/29/20 00:37 haloperidol [From Haldol] Allergy Verified 04/29/20 00:37 hydrocodone [From Edcouch] Allergy Verified 04/29/20 00:37 - Home Medications Medication Instructions Recorded Confirmed Type Phenytoin Sodium Extended 30 mg PO DAILY 04/19/20 04/29/20 History [Dilantin] buPROPion HCl [Wellbutrin] 400 mg PO HS 04/19/20 04/29/20 History Pantoprazole [Protonix] 20 mg PO BID #60 tab 04/23/20 04/29/20 Rx hydrOXYzine [Atarax] 25 mg PO Q4H PRN #30 tab 04/23/20 04/29/20 Rx - History PMHx: seizures, arrhythmia with loop recorder, ETOH abuse with previous DTs PSHx: R shoulder surgery, appendectomy FHx: reports uncle with unknown hereditary medical condition Social: daily etoh use 5-6 beers per day, more on weekends; Reports that he has dipped tobacco for >10 years; denies drug use - Review of Systems ROS unobtainable: other (Difficult to obtain due to patient's mental status) General: reports: weight/appetite/sleep changes. denies: fever/chills ENT: denies: nasal congestion Respiratory: denies: cough Cardiovascular: denies: chest pain, palpitation Gastrointestinal: reports: abdominal pain. denies: nausea, vomiting, diarrhea, constipation, GI bleeding Genitourinary: reports: other (difficulty urinating). denies: dysuria Skin: denies: rashes Neurological: reports: seizure, other (dizziness) - Vital signs BP: 97/80 HR: 131 RR: 17 Tmax: Pox: 100% on RA Wt:64.5 kg - Physical Exam Constitutional: other (drowsy, but arousable) HEENT: grossly normal vision, grossly normal hearing, other (Dry mucosa, swelling and brusing of right orbit) Neck: supple, FROM Heart: RRR, normal S1/S2, no murmurs/rubs/gallops Lungs: CTAB, no respiratory distress Abdomen: soft, bowel sounds present -Abdomen: tender to palpation in epigastric region Musculoskeletal: normal structure, normal tone Skin: no rash/lesions, no jaundice Heme/Lymphatic: no unusual bruising or bleeding, no purpura, no petechia -Psychiatric: Intoxicated, AAOx2 FMR H&P: Results - Labs Result Diagrams: 04/29/20 03:41 04/29/20 03:41 Lab results: WBC 3.9 thou/uL (4.8-10.8) L 04/28/20 20:22 Hgb 13.4 g/dL (14.0-18.0) L 04/28/20 20:22 Hct 42.0 % (42.0-52.0) 04/28/20 20:22 MCV 103.0 fL (78.0-98.0) H 04/28/20 20:22 Plt Count 218 thou/uL (130-400) 04/28/20 20:22 Neutrophils % 84.8 % (42.0-75.0) H 04/28/20 20:22 Sodium 147 mmol/L (136-145) H 04/28/20 19:20 Potassium 5.5 mmol/L (3.5-5.1) H 04/28/20 19:20 Chloride 105 mmol/L (98-107) 04/28/20 19:20 Carbon Dioxide 13 mmol/L (22-29) L 04/28/20 19:20 BUN 8 mg/dL (8.4-25.7) L 04/28/20 19:20 Creatinine 0.90 mg/dL (0.7-1.3) 04/28/20 19:20 Glucose 71 mg/dL (70-105) 04/28/20 19:20 Calcium 8.5 mg/dL (7.8-10.44) 04/28/20 19:20 Total Bilirubin 0.6 mg/dL (0.2-1.2) 04/28/20 19:20 AST 82 U/L (5-34) H 04/28/20 19:20 ALT 47 U/L (8-55) 04/28/20 19:20 Alkaline Phosphatase 139 U/L (40-110) H 04/28/20 19:20 Serum Total Protein 8.5 g/dL (6.0-8.3) H 04/28/20 19:20 Albumin 4.3 g/dL (3.5-5.0) 04/28/20 19:20 Lipase 33 U/L (8-78) 04/28/20 19:20 - Radiology Interpretation CT scan - abdomen Status: report reviewed by me (No acute process) CT scan - head Status: report reviewed by me (Brain and facial bone CT: anterior superior frontal scalp swelling, no evidence for fractures) Other Status: report reviewed by me (Cervical spine CT: no evidence of fracture or subluxation) Chest x-ray Status: report reviewed by me (no acute process) FMR H&P: A/P - Problem List (1) Seizure Current Visit: Yes Status: Acute Code(s): R56.9 - UNSPECIFIED CONVULSIONS (2) Alcohol abuse Current Visit: Yes Status: Chronic Code(s): F10.10 - ALCOHOL ABUSE, UNCOMPLICATED (3) Dehydration Current Visit: Yes Status: Acute Code(s): E86.0 - DEHYDRATION (4) Hypotension Current Visit: Yes Status: Acute (5) Tachycardia Current Visit: Yes Status: Acute Code(s): R00.0 - TACHYCARDIA, UNSPECIFIED (6) Anemia Current Visit: Yes Status: Chronic Code(s): D64.9 - ANEMIA, UNSPECIFIED (7) Hypernatremia Current Visit: Yes Status: Acute Code(s): E87.0 - HYPEROSMOLALITY AND HYPERNATREMIA (8) Erosive esophagitis Current Visit: Yes Status: Acute Code(s): K22.10 - ULCER OF ESOPHAGUS WITHOUT BLEEDING (9) Anxiety Current Visit: Yes Status: Chronic Code(s): F41.9 - ANXIETY DISORDER, UNSPECIFIED - Plan Seizure - known seizure disorder since childhood, on dilantin - likely due to medical noncompliance and decreased seizure threshold with alcohol - will check dilantin level, resume home medication - s/p 3mg Ativan in ED3 mg Ativan, 1500 mg of kepra - seizure precautions in place Alcohol Abuse - plasma alcohol on admission 380 - ASE protocol in place - Ativan q6 PRN available - CM consulted for alcohol rehab resources Elevated Troponin - Trop: 0.868 - EKG: Sinus tachy, no ST elevation - BNP: 120.7 - Will trend troponin - could be secondary to alcohol induced cardiomyopathy - cardiology consulted SIRs Criteria - hypotensive and tachycardic in ED - s/p 2 g cefepime, 1 g vanc, 4 L NS, Banana bag - likely secondary to volume depletion, but due to limited history obtained from patient will continue antibiotics pending procal results - blood and urine cultures ordered Hypotension/Tachycardia - likely 2/2 to volume depletion - s/p 4 L NS - will place femoral central line - levophed ordered, but not yet given due to improvement in pressures - CTA ordered to rule out PE Dehydration - Na: 147 - s/p 4 L NS - LR @ 150 mls/hr Grade D Severe Erosive Esophagitis - EGD with GI on last admission, discharged home on 20 mg protonix BID - s/p 80 mg protonix in ED - will give 40 mg IV protonix q12hr Macrocytic anemia - Hgb: 13.4 - MCV: 103 - likely 2/2 to alcohol abuse - folic acid ordered Anxiety - home Atarax PCP: none Diet: liquids, advance as tolerated Fluids: LR @ 150 mls/hr PPx: Protonix, SCDs due to recent GI bleed Code: Full Dispo: will admit to CCU for further monitoring; likely LOS >48 hrs FMR H&P: Upper Level - Plan Date/Time: 04/28/202116 Noemi Victor, have evaluated this patient and agree with findings/plan as outlined by programming internship resident. Pertinent changes/additions are listed here. 54YOM with a PMH notable for significant EtOH abuse, Sz disorder, and a recent GI bleed 2/2 erosive esophagitis who was brought into the ED via EMS after being found down having a seizure at [place]. Of note, patient was s/p multiple doses of Ativan and blood EtOH level was significantly elevated at the time of the evaluation so history was very limited. Per the ER physician he was found down having a seizure and has not had any significant PO intake other than EtOH for the last several days since recently being discharged from the hospital on 04/23/20. Patient endorsed some abdominal pain and dry mouth. On presentation he was altered, tachycardic in the 130s and hypotensive with SBPs as low as the 70s. In the ER, his workup was notable for dehydration with a Na of 147 & an VERNA w/ and eGFR of ~81. His troponin & CK-MB were also elevated at 0.868 & 9.2. He had extensive CT imaging given his fall with head trauma, all of which showed no acute findings. His blood EtOH level was 380. He was given 8mg IV Zofran, 3mg IV lorazepam, 1 banana bag, 3L NS, 80mg IV protonix, 2g IV cefepime, 1g IV vancomycin & 1500mg IV keppra. On exam he was tachycardic in the 130s and his mucus membranes were dry. He also had bruising and mild edema over his right eye. Plan will be to admit to the CCU for close monitoring and likely central placement for pressure support as needed for his hypotension. Regarding his seizures, will continue PRN Ativan, seizure precautions & check a Dilantin level. Ganga resume his home Dilantin dose in the AM. Regarding his dehydration & EtOH intoxication, will continue IVFs w/ LR @ 150mL/hr & start on a QD multivitamin, folvite & thiamine. Will also consult CM to discuss rehab options with him. For his erosive esophagitis, will continue RAS IV protonix @ 40mg BID & transition once out of the CCU. Lastly, regarding his SIRS criteria, blood & urine Cxs were ordered from the ED but patient has yet to void. Will continue cefepime & vanc given uncertain history and discontinue if procalcitonin level is WNLs. Will also obtain a CTA of the chest to r/o a pulmonary embolus. Regarding his elevated troponin I & CK levels, will continue to trend this. Cardiology, Dr. Anne, consulted from the ED & to see the patient in the AM. Anticipated LOS at least 2 midnights pending clinical course. Patient is a FULL CODE. Addendum - Attending - Attending Attestation Date/Time: 04/29/20 1544 I personally evaluated the patient and discussed the management with Dr. [] I agree with the History, Examination, Assessment and Plan documented above with any addition or exceptions noted below. See my dictated H&P for details. Doc #[id number]
[2020-04-28 21:24] LABS: CKMB 9.2 ng/mL (0-6.6)
[2020-04-28] MEDS ORDERED: Pantoprazole 80 MG, Admixture Fee 1 EACH in Sodium Chloride 0.9% 100 ML IVPB SCH (21:45)
[2020-04-28] MEDS ORDERED: levETIRAcetam In NaCl (Iso-Os) 1,500 MG in Premix Bag 1 BAG IVPB SCH (21:45)
[2020-04-28] MEDS ORDERED: Ondansetron ODT 4 MG TAB PO PRN (21:54)
[2020-04-28] MEDS ORDERED: Lorazepam 2 MG/ML VIAL SLOW IVP PRN (23:08)
[2020-04-28] MEDS ORDERED: Norepinephrine 8 MG/0.9% NS 250 ML IVPB SCH (23:15)
[2020-04-29] MEDS: Lactated Ringer's 1,000 ML IV SCH ×5 (00:04→23:33)
[2020-04-29] MEDS: Morphine 2 MG/ML VIAL SLOW IVP PRN ×8 (00:15→22:02)
[2020-04-29] MEDS ORDERED: Sodium Chloride 0.9% (PF) 10 ML VIAL FS PRN (00:30)
--- NOTE | 2020-04-29 00:34 | PDOC.BPN ---
- Brief Progress Note Encounter Date: 04/28/20 Encounter Time: 22:30 Residents: Moise Attending: Karen A time out was performed. My hands were washed immediately prior to the procedure. I wore a surgical cap, mask with protective eyewear, sterile gown and sterile gloves throughout the procedure. The RIGHT inguinal region was prepped using chlorhexidine scrub and draped in sterile fashion using a full drape and sterile probe cover employed. The femoral pulse was identified and vein was identified using the ultrasound. Anesthesia was achieved using 1% lidocaine. Visualizing the femoral vein with ultrasound, the introducer needle was inserted medial to the femoral artery, inferior to the inguinal crease and into the femoral vein. Venous blood was withdrawn. The syringe was removed and a guidewire was advanced into the introducer needle. A small incision was made at the skin surface with a scalpel and the introducer needle was exchanged for a dilator over the guidewire. After appropriate dilation was obtained, the dilator was exchanged over the wire for a 7 korean triple lumen central venous catheter. The wire was removed and the catheter was sutured in place at 20 cm. A sterile sorbaview shield was placed over the catheter at the insertion site. The patient tolerated the procedure without any hemodynamic compromise. At time of procedure completion, all ports aspirated and flushed properly. Estimated blood loss is 5 cc.
[2020-04-29 01:20] VITALS: BMI 22.2
[2020-04-29 01:34] LABS: CKMB 9.8 ng/mL (0-6.6)
--- NOTE | 2020-04-29 02:06 | PDOC.CNTRL ---
Central Line Procedure Note - Procedure Date: 04/28/20 Time: 22:30 - PreProcedure Diagnosis: Hypotension - PostProcedure Diagnosis: Hypotension - Description Focused site: femoral vein: Right Ultrasound guidance: Yes Patient tolerated procedure: well Procedure in Details: Residents: Moise Attending: Karen Rose time out was performed. My hands were washed immediately prior to the procedure. I wore a surgical cap, mask with protective eyewear, sterile gown and sterile gloves throughout the procedure. The RIGHT inguinal region was prepped using chlorhexidine scrub and draped in sterile fashion using a full drape and sterile probe cover employed. The femoral pulse was identified and vein was identified using the ultrasound. Anesthesia was achieved using 1% lidocaine. Visualizing the femoral vein with ultrasound, the introducer needle was inserted medial to the femoral artery, inferior to the inguinal crease and into the femoral vein. Venous blood was withdrawn. The syringe was removed and a guidewire was advanced into the introducer needle. A small incision was made at the skin surface with a scalpel and the introducer needle was exchanged for a dilator over the guidewire. After appropriate dilation was obtained, the dilator was exchanged over the wire for a 7 [place]ian triple lumen central venous catheter. The wire was removed and the catheter was sutured in place at 20 cm. A sterile sorbaview shield was placed over the catheter at the insertion site. The patient tolerated the procedure without any hemodynamic compromise. At time of procedure completion, all ports aspirated and flushed properly. Estimated blood loss is 5 cc. I was present for and supervised the entire procedure. Agree with above. No DVT noted in right femoral vein.
[2020-04-29] MEDS: Ondansetron PF 4 MG/2 ML Vial IVP PRN ×3 (02:13→16:22)
[2020-04-29] MEDS ORDERED: Vancomycin 1 GM in Premix Bag 1 BAG IVPB SCH (04:00)
[2020-04-29] MEDS ORDERED: Cefepime 2 GM in Sodium Chloride 0.9% 100 ML IVPB SCH (04:00)
[2020-04-29] MEDS ORDERED: Enoxaparin Sodium 60 MG/0.6 ML SYRINGE SC SCH (04:00)
[2020-04-29 04:13] LABS: #Lymphocytes 0.2 thou/uL (1.20-3.40); #Monocytes 0.6 thou/uL (0.11-0.59); #Neutrophils 3.8 thou/uL (1.40-6.50); %Basophils 0.3 % (0.0-1.0); %Eosinophils 0.1 % (0.0-10.0); %Lymphocytes 4.7 % (21.0-51.0); %Monocytes 12.8 % (0.0-10.0); %Neutrophils 82.1 % (42.0-75.0); Hemoglobin 10.6 g/dL (14.0-18.0); Mean Corpuscular HGB CONC 32.6 g/dL (32.0-36.0); Mean Corpuscular Hemoglobin 33.2 pg (27.0-31.0); Platelet Count 161 thou/uL (130-400); RBC Distribution Width 18.1 % (11.5-14.5); Red Blood Cell (RBC) Count 3.18 mill/uL (4.70-6.10); White Blood Cell (WBC) Count 4.7 thou/uL (4.8-10.8)
[2020-04-29 04:34] LABS: Critical Call Chem Troponin I RESULT DECREASING; Troponin I 0.898 ng/mL (< 0.028)
[2020-04-29 04:50] LABS: ALT (SGPT) 43 U/L (8-55); AST (SGOT) 103 U/L (5-34); Albumin 2.9 g/dL (3.5-5.0); Alkaline Phosphatase 88 U/L (40-110); Anion Gap 22 mmol/L (10-20); BUN (Urea Nitrogen) 7 mg/dL (8.4-25.7); Bilirubin, Total 0.3 mg/dL (0.2-1.2); Calc. Creatinine Clearance 95 mL/min (70-130); Calcium 6.7 mg/dL (7.8-10.44); Carbon Dioxide 14 mmol/L (22-29); Chloride 109 mmol/L (98-107); Estimated GFR-MDRD Greater than 90; Globulin 2.8 g/dL (2.4-3.5); Glucose 298 mg/dL (70-105); Potassium 4.7 mmol/L (3.5-5.1); Protein, Total 5.7 g/dL (6.0-8.3); Sodium 140 mmol/L (136-145)
[2020-04-29 04:58] LABS: Bacteria/HPF None Seen HPF (None Seen); Bilirubin Negative (Negative); Blood, Urine Negative (Negative); Clarity Clear (Clear); Glucose, Urine (Dipstick) 500 mg/dL (Negative); Ketone, Urine 60 mg/dL (Negative); Leukocyte Negative Leu/uL (Negative); Mucous/LPF Rare LPF (<2+); Nitrite Negative (Negative); Protein, Urine (Dipstick) Negative (Neg-Trace); RBC/HPF 0-3 HPF (0-3); Specific Gravity, Urine 1.045 (1.002-1.036); Squamous Epithelial 0-3 HPF (0-3); Urobilinogen Normal mg/dL (Less than 2); WBC/HPF 0-3 HPF (0-3)
[2020-04-29 04:59] LABS: Amphetamine Not Detected (NotDetected); Barbiturates Screen Not Detected (NotDetected); Benzodiazepine Screen Detected (NotDetected); Cocaine Metabolite Screen Not Detected (NotDetected); Medtox Control Line Valid? VALID (VALID); Medtox Reader # READER 4; Methadone Not Detected (NotDetected); Methamphetamine Not Detected (NotDetected); Opiate Screen Detected (NotDetected); Oxycodone Screen Not Detected (NotDetected); Phencyclidine (PCP) Not Detected (NotDetected); THC/Cannabinoid Screen Not Detected (NotDetected); Tricyclic Screen Not Detected (NotDetected)
--- NOTE | 2020-04-29 06:46 | PDOC.FM ---
- Subjective Subjective: Patient awake and alert this AM. Tells me his head hurts along w/ pain in the whole right side of his body. + pain w/ deep breath. Denies having history of diabetes. Last thing he remembers was falling and hitting the concrete, felt like he passed out/syncopal episode. Denies sick contacts since leaving the hospital. Currently living in [facility], has been living there past 10 months since his sister sold his house. - Objective MAR Reviewed: Yes Vital Signs & Weight: Vital Signs (12 hours) Temp Pulse Ox 04/28/20 23:00 92 L 04/28/20 22:20 97.8 F Weight Weight 64.5 kg Most Recent Monitor Data Heart Rate from ECG 118 NIBP 103/78 NIBP BP-Mean 86 Respiration from ECG 17 SpO2 87 I&O: 04/27/20 04/28/20 04/29/20 06:59 06:59 06:59 Intake Total 2829 Output Total 670 Balance 2159 Result Diagrams: 04/29/20 03:41 04/29/20 03:41 EKG Reviewed by me: Yes (tachycardic, QTc 467, no ST changes) Radiology Reviewed by me: Yes Phys Exam - Physical Examination Constitutional: NAD HEENT: PERRLA, sclera anicteric, oral pharynx no lesions Respiratory: no wheezing RLL breath sounds diminished, otherwise clear possible mild clubbing of fingernails Cardiovascular: RRR, no significant murmur, no rub Gastrointestinal: soft, non-tender, no distention Musculoskeletal: no edema, pulses present Neurological: non-focal mild tremor in left hand when holding cup Psychiatric: normal affect, A&O x 3 Skin: no rash Dx/Plan - Plan Plan: 54 yo Male w/ hx of alcohol abuse disorder, seizures since childhood, medication noncompliance, and erosive esophagitis admitted for bilateral pulmonary embolism and seizure. Neuro: AxO x4 GCS 15 Seizure, Hx of seizures Hx of Delirium tremens/alcohol withdrawal - alcohol level in 300s on arrival. - discontinue keppra, resume home dilantin - phenytoin level low, not taking home dilantin - sodium level high/normal, unlikely that seizure due to hyponatremia or beer podomania - ASE protocol, ativan prn available Resp: Bilateral pulmonary embolism - denies past history of DVT/PE. - on room air - started therapeutic lvx this AM. - uninsured, case mgmt consulted for outpatient help w/ anticoagulation options. Pt noncompliant so warfarin monitoring may be difficult/unsafe in this patient; medication compliance overall will be an issue. - Echo today to evaluate for R heart strain CV: Hypotensive/tachcardic on arrival. Femoral central line placed and fluid resuscitated. - continue fluids, patient still tachycardic GI: Diet: Clear liquids. ADAT. Hx of erosive esophagitis Hepatic steatosis on imaging 04/19 - patient likely w/ nutritional deficiencies 2/2 chronic alcohol use - continue PPI - check INR/PT Heme/ID: SIRS criteria - low suspicion for infection, procal 0.09 - cefepime, vancomycin given. Will await preliminary blood cultures before discontinuing. Macrocytic anemia likely 2/2 nutritional deficiency - replacing w/ multivitamins, folate, thiamine HEENT: Facial trauma from fall - CT head/cervical spine neg - control pain. IV morphine currently. Will switch to PO meds. Endo: Hyperglycemia - no hx of diabetes, will check A1C today. Code: FULL IVF: LR at 150 mL/hr, appears mildly dehydrated still. Continue. Anticoa mg BID GI: protonix 40 mg IV BID Lines: femoral line, PIV. Dispo: inpatient, CCU. Expected LOS > 48 H. Addendum - Attending - Attending Attestation Date/Time: 04/29/20 1211 I personally evaluated the patient and discussed the management with Dr. Moraes. I agree with the History, Examination, Assessment and Plan documented above with any addition or exceptions noted below.
--- NOTE | 2020-04-29 07:43 | HP ---
CHIEF COMPLAINT: Alcohol withdrawal seizure. HISTORY OF PRESENT ILLNESS: I have reviewed all documentation and discussed the care and management of this patient with Dr. Lopez and Dr. Bruce. I agree with the documentation in their H and P unless otherwise stated in the following attestation. In summary, Mr. Erwin is a 54-year-old male with past medical history of alcohol abuse, seizures, arrhythmia with a loop recorder, and prior delirium tremens. He presented per EMS from a motel after having a seizure and fall today. He is recently discharged after being admitted for alcohol withdrawal and pancreatitis earlier this month. He states he drank a large bottle of vodka yesterday per ER record, but has not had anything to drink since. He stated he had a seizure today, but is unable to recall the details of this other than that he woke up lying on the concrete in his room. Given his postictal state and recent Ativan, he is a relatively poor historian. ER COURSE: While in the ER, he had routine labs drawn. CT of the head, CT brain, cervical spine, facial bones, and chest x-ray performed. EKG was also obtained. He received a banana bag and 3 L of normal saline. He was initially hypotensive and tachycardic. His MAPS were maintaining in the 70s. He also received vancomycin, cefepime, had blood cultures obtained and received lorazepam 3 mg in total. He also received Protonix 80 mg IV. He was also loaded with Keppra. Cardiology consultation was placed at this time. Please see the resident note for complete past medical, surgical, social, family history, as well as medications and allergies. FOCUSED PHYSICAL EXAMINATION: VITAL SIGNS: Blood pressure 85/63, pulse 130, respiratory rate 18, pulse ox 99% on room air. GENERAL: The patient is alert and oriented to person and place, but rambles at times and answers questions inappropriately. HEENT: Normocephalic with bruising noted over his right orbit. Mucous membranes are dry. No scleral icterus noted. CARDIOVASCULAR: Tachycardic rate, regular rhythm. No murmurs appreciated. PULMONARY: Clear to auscultation bilaterally. Normal effort. ABDOMEN: Mild epigastric tenderness to palpation, otherwise nondistended. No rebound or guarding. NEUROLOGIC: GCS E4 V5 M6 for a total of 15. No focal deficits noted. PERTINENT LABORATORY FINDINGS: Troponin 0.868, CK-MB 9.2. Sodium 147, potassium 5.5, bicarb 13, anion gap 35, BUN 8, AST 82, alkaline phosphatase 139, serum protein 8.5. White blood cell count 3.9, hemoglobin 13.4, platelets 218, it appears his baseline is between 70,000 and 100,000. Serum drug screen significant for plasma alcohol of 380. IMAGING: Chest x-ray, no acute processes. CT cervical spine, no acute processes. CT facial bones, no acute processes. CT brain, no acute processes. CT abdomen, pelvis no acute process EKG, sinus tachycardia with normal intervals, normal ST segments. ASSESSMENT: Mr. Erwin is a 54-year-old male with known alcohol abuse, who presented following an unwitnessed seizure and fall. Clinically, he appears to be very volume depleted and has been improving with aggressive fluid resuscitation. He has been covered with antibiotics prophylactically and has an elevated troponin at this time. PLAN: As follows: 1. Suspected alcohol withdrawal seizure. Will load with Keppra and continue p.r.n. Ativan and pursue aggressive fluid resuscitation. He will be placed in the ICU for close monitoring. 2. Hypovolemic shock. His blood pressures have responded to fluid resuscitation and he has been able to maintain his MAP above 60 during the entirety of his time in the ER. Discussed placing a central venous catheter in the ER but given his altered mental status and no definitive need for pressors at this time, we will hold off for now. Should he become more hypotensive, will proceed with central venous catheter placement later this evening. Continue IV lactated Ringer at 150 mL/h. We will continue antibiotics until infection can be definitively ruled out. We will order urinalysis and urine culture to complete his laboratory evaluation. 3. Demand ischemia secondary to hypovolemic shock. CPK pending at this time. We will order BNP to further rule out cardiac causes. 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 BMP ordered. If this is elevated, we will adjust fluids. Cardiology has already been consulted for evaluation. Given his recent fall and lack of other symptoms for cardiac causes of his troponin elevation, we will hold off on Lovenox at this time. If he trends up significantly, we will touch base with Cardiology again and consider initiation of anticoagulation. 4. Anion gap metabolic acidosis, likely related to his volume depletion and alcohol abuse. Repeat basic metabolic panel in approximately 4 hours from prior BMP. We will check lactic acid and we will check procalcitonin. 5. Chronic alcohol abuse. ASE protocol. 6. History of Pancytopenia. The patient's platelet count is elevated at this time. However, I feel this may be due to an acute phase reactant as his platelets at the time of discharge from his recent hospitalization were 106,000. This may be also due to severe volume depletion. We will continue to trend. DISPOSITION AND ESTIMATED LENGTH OF STAY: Inpatient ICU greater than 2 midnights. Approximately 45 minutes of critical care time were spent by myself with this patient excluding any procedures performed on the patient. Job ID: [id number] MTDD
[2020-04-29 07:48] LABS: INR-International Normal Ratio 1.2; Prothrombin Time 14.8 sec (12.0-14.7)
--- NOTE | 2020-04-29 07:48 | CT ---
PRELIMINARY REPORT/[facility]/EMERGENCY AFTER HOURS PROCEDURE This report was discussed with Rosalind Roy RN by Bárbara Blackman on Apr 29, 2020 03:03:00 CDT. Addendum electronically signed by Bárbara Blackman on April 29, 2020 3:04:48 AM CDT EXAM: CTA Chest with Intravenous Contrast CLINICAL HISTORY: M53, SOB, CHEST PAIN, EVAL FOR PE TECHNIQUE: Axial CTA images of the chest with intravenous contrast. Three-dimensional MIP/volume rendered reform ations were performed. CONTRAST: With; 70ML ISOVUE 370 COMPARISON: None provided. FINDINGS: PULMONARY ARTERIES Exam is markedly positive for PE. Large clot burden is present throughout the lobes. Large amount of clot is present within the bilateral main pulmonary arteries. AORTA No thoracic aortic aneurysm or dissection. LUNGS Mild basilar atelectasis. PLEURAL SPACES No pleural effusion. No pneumothorax. HEART AND MEDIASTINUM Right-sided heart strain is present. There is reflux of IV contrast into the IVC and hepatic veins. R V?LV ratio is 2.2, markedly abnormal. LYMPH NODES No lymphadenopathy. BONES Chronic T12 compression fracture. Right shoulder hemiarthroplasty. Healed rib fractures. CHEST WALL AND UPPER ABDOMEN There is fatty infiltration of liver. IMPRESSION: Exam is markedly positive for PE with large clot burden. There is associated right heart strain. ELECTRONICALLY SIGNED BY: Milena Marte MD Apr 29, 2020 2:59:31 AM CDT This report is intended for review by the ordering physician only, in accordance of law. If you recei ve this report in error, please call [facility] at [phone]. FINAL REPORT EMERGENCY AFTER HOURS CT ANGIOGRAM THORAX WITH IV CONTRAST AND 3-D RECONSTRUCTIONS: HISTORY: Shortness of breath and chest pain. COMPARISON: None. IMPRESSION: 1. Extensive bilateral pulmonary emboli with evidence of right heart strain. 2. Distention of the stomach with fluid and gas. There is fluid seen in the esophagus which may be re lated to gastroesophageal reflux. 3. Fatty infiltration of the liver. 4. Increased density in the visualized gallbladder which may be related to vicarious excretion of con trast. 5. Wedge-shaped T12 vertebral body fracture. This was also seen on prior studies in 2019. There are h ealing fractures involving the lateral left fifth, sixth, and seventh ribs. Findings are in agreement with preliminary report by [facility]. Transcribed Date/Time: 04/29/2020 7:55 AM
[2020-04-29 07:49] LABS: Hemoglobin A1c 4.7 % (4.0-6.0)
[2020-04-29] MEDS: Multivitamin W/ Minerals 1 TAB PO SCH (08:39)
[2020-04-29] MEDS: Magnesium Oxide 400 MG TAB PO SCH (08:39)
[2020-04-29] MEDS: Thiamine 100 MG TAB PO SCH (08:39)
[2020-04-29] MEDS: Folic Acid 1 MG TAB PO SCH (08:40)
[2020-04-29] MEDS ORDERED: Pantoprazole 40 MG GRANULES PACKET PO SCH (09:00)
[2020-04-29] MEDS: Pantoprazole 40 MG VIAL IVP SCH ×2 (09:11→20:27)
[2020-04-29 12:06] LABS: SARS-CoV-2 MS2 Positive; SARS-CoV-2 N Gene Negative; SARS-CoV-2 S Gene Negative; SARS-CoV-2 by NAA Not Detected (NotDetected); SARS-CoV-2 orf1ab Negative
[2020-04-29] MEDS: Enoxaparin Sodium 60 MG/0.6 ML SYRINGE SC SCH (20:26)
--- NOTE | 2020-04-29 20:27 | CON ---
DATE OF CONSULTATION: HISTORY OF PRESENT ILLNESS: The patient is a 54-year-old gentleman with no apparent cardiac history, who presented with marked dyspnea. The patient has a history of schizophrenia and ethanol abuse. The patient presented to the hospital intoxicated with marked dyspnea. He was admitted for further evaluation. The patient denies having any chest discomfort. He states he is no longer short of breath. PAST MEDICAL HISTORY: 1. Schizophrenia. 2. Seizure disorder. 3. Ethanol abuse. PAST SURGICAL HISTORY: Shoulder surgery. SOCIAL HISTORY: Long history of ethanol abuse. Nonsmoker. MEDICATIONS: Include, 1. Dilantin 400 daily. 2. Wellbutrin 400 at bedtime. 3. Protonix 40 daily. ALLERGIES: ACETAMINOPHEN, HALDOL, AND HYDROCODONE. PHYSICAL EXAMINATION: GENERAL: Ill-appearing gentleman with ecchymoses over his right eye. VITAL SIGNS: Blood pressure 118/88. NECK: Showed no jugular venous distention. LUNGS: Clear to auscultation. HEART: Regular rate and rhythm. Normal S1 with a loud P2. He has 1/6 systolic murmur. ABDOMEN: Nondistended. EXTREMITIES: Showed no edema. LABORATORY DATA: White blood cell count 4.7, hemoglobin 10.6, hematocrit 32.4, platelets 161. Sodium 140, potassium 4.7, bicarb 109, BUN 7, creatinine 0.82, glucose 298. Troponin was 0.9. White blood cell count 4.7, hemoglobin 10.6, hematocrit 32.4, and platelets 161. IMAGING DATA: EKG sinus tachycardia, otherwise normal ECG. Echocardiogram revealed normal left ventricular ejection fraction 65% to 70%. The right ventricle was severely dilated. There was moderate pulmonary hypertension. IMPRESSION: 1. Pulmonary embolus with cor pulmonale. 2. Ethanol abuse. 3. Schizophrenia. 4. Hyperglycemia. This gentleman presents with a pulmonary embolus. From a cardiac standpoint, he is on Lovenox. His blood pressure has stabilized. We will follow this patient with you through his hospitalization. Critical care note, time is 30 minutes. Job ID: [id number] MTDD
[2020-04-29] MEDS ORDERED: Lorazepam 2 MG/ML VIAL SLOW IVP PRN (23:08)
--- NOTE | 2020-04-30 01:35 | CON ---
DATE OF CONSULTATION: 04/29/2020 SUBJECTIVE: 54-year-old male. He presented with alcohol intoxication and history of a seizure. Blood alcohol level at 08:22 last night was 380. He had benzodiazepines and opiates on his drug screen as well. He is actually on room air, in no distress, was admitted to the ICU because of a seizure apparently. He was incidentally found to have significant thromboembolic disease on CT pulmonary angiogram. PAST MEDICAL HISTORY: 1. Remarkable for seizures. 2. History of alcohol use. 3. History of DTs in the past. 4. History of being homeless, living in a hotel. 5. Apparently, he is not a smoker. MEDICATIONS: Prior to admission, he was on Dilantin, Wellbutrin, and Protonix. INTOLERANCES: Reports intolerance to Haldol, hydrocodone, and Tylenol. PHYSICAL EXAMINATION: GENERAL: He has a black right eye. VITAL SIGNS: He is on room air, oximetry is 95%, heart rate is 115, blood pressure 140/97, respiratory rates in the teens. HEENT: Pupils reactive. Sclerae anicteric. NECK: Supple. LUNGS: Clear. HEART: Regular rhythm, rapid rate. ABDOMEN: Soft and nontender. EXTREMITIES: Without clubbing, cyanosis, or edema. LABORATORY DATA: Glucose was 298, bicarb was 14 this morning. Anion gap was 17. Albumin is 2.9. Protime was 14.8. IMPRESSION AND PLAN: 1. Alcohol intoxication. 2. Thromboembolic disease. I have explained to him that ongoing alcohol use with anticoagulants will not end well. Cardiology was consulted today because of borderline abnormal troponin. His ejection fraction surprisingly was normal. His ventricle on the right was enlarged suggesting he has had thromboembolic disease and a clot burden for quite some time. We will continue seizure medication, IV hydration since without a doubt that he is intravascularly volume dry given that blood alcohol level. I doubt he is septic. Antibiotics should be simplified. TIME SPENT: 70-minute consult, 50% time was spent in coordinating care. Job ID: [id number] [facility] INSANESawyer
[2020-04-30] MEDS: Morphine 2 MG/ML VIAL SLOW IVP PRN ×2 (02:09→06:27)
[2020-04-30 04:44] LABS: #Basophils 0.1 thou/uL (0.0-0.2); #Eosinphils 0.1 thou/uL (0.0-0.7); #Lymphocytes 1.2 thou/uL (1.20-3.40); #Monocytes 0.7 thou/uL (0.11-0.59); #Neutrophils 3.1 thou/uL (1.40-6.50); %Basophils 1.2 % (0.0-1.0); %Eosinophils 1.1 % (0.0-10.0); %Lymphocytes 24.1 % (21.0-51.0); %Monocytes 13.2 % (0.0-10.0); %Neutrophils 60.4 % (42.0-75.0); Hemoglobin 10.4 g/dL (14.0-18.0); Mean Corpuscular HGB CONC 31.9 g/dL (32.0-36.0); Mean Corpuscular Hemoglobin 32.7 pg (27.0-31.0); Platelet Count 112 thou/uL (130-400); Platelet Morphology Comment Appears Decreased; RBC Distribution Width 18.1 % (11.5-14.5); Red Blood Cell (RBC) Count 3.19 mill/uL (4.70-6.10); White Blood Cell (WBC) Count 5.1 thou/uL (4.8-10.8)
[2020-04-30 04:55] LABS: ALT (SGPT) 37 U/L (8-55); AST (SGOT) 58 U/L (5-34); Alkaline Phosphatase 81 U/L (40-110); Anion Gap 13 mmol/L (10-20); BUN (Urea Nitrogen) 5 mg/dL (8.4-25.7); Bilirubin, Total 0.8 mg/dL (0.2-1.2); Calc. Creatinine Clearance 116 mL/min (70-130); Calcium 7.9 mg/dL (7.8-10.44); Carbon Dioxide 24 mmol/L (22-29); Chloride 103 mmol/L (98-107); Estimated GFR-MDRD Greater than 90; Globulin 2.9 g/dL (2.4-3.5); Glucose 92 mg/dL (70-105); Potassium 4.1 mmol/L (3.5-5.1); Protein, Total 5.9 g/dL (6.0-8.3); Sodium 136 mmol/L (136-145)
[2020-04-30] MEDS: Lactated Ringer's 1,000 ML IV SCH ×2 (06:26→18:19)
--- NOTE | 2020-04-30 06:41 | PDOC.FM ---
- Subjective Subjective: Patient without pain this AM. Nausea and vomiting yesterday, improved today. Would like to stop drinking and has been in rehab previously. - Objective MAR Reviewed: Yes Vital Signs & Weight: Vital Signs (12 hours) Temp Pulse Resp BP Pulse Ox 04/30/20 04:00 98.5 F 105 H 16 143/103 H 96 04/30/20 01:17 96 04/29/20 22:15 99 F 114 H 20 129/87 96 04/29/20 20:00 98.8 F 04/29/20 19:29 95 Weight Admit Weight 64.41 kg Weight 64.5 kg Most Recent Monitor Data Heart Rate from ECG 117 NIBP 127/94 NIBP BP-Mean 105 Respiration from ECG 14 SpO2 100 I&O: 04/28/20 04/29/20 04/30/20 06:59 06:59 06:59 Intake Total 2829 2226 Output Total 670 590 Balance 2159 1636 Result Diagrams: 04/30/20 04:04 04/30/20 04:04 Phys Exam - Physical Examination Constitutional: NAD Respiratory: no wheezing no acute respiratory distress Cardiovascular: RRR (tachycardia improved ) Gastrointestinal: no distention Musculoskeletal: no edema, pulses present Psychiatric: A&O x 3 (anxious affect) Dx/Plan - Plan Plan: 54 yo Male w/ hx of alcohol abuse disorder, seizures since childhood, medication noncompliance, and erosive esophagitis admitted for bilateral pulmonary embolism and seizure. Bilateral pulmonary embolism - therapeutic lvx. Anti-10a level today at 13:00, 4 hours after lovenox dose - uninsured, case mgmt consulted for outpatient help w/ anticoagulation options. - Echo showed R heart strain Seizure, Hx of seizures Hx of Delirium tremens/alcohol withdrawal - resumed home dilantin yesterday. Corrected dose. - phenytoin level low. Will repeat as indicated. - ASE protocol, ativan prn available Hx of erosive esophagitis Hepatic steatosis on imaging 04/19 - patient likely w/ nutritional deficiencies 2/2 chronic alcohol use - continue PPI Macrocytic anemia likely 2/2 nutritional deficiency - replacing w/ multivitamins, folate, thiamine Facial trauma from fall - no fractures. D/c IV morphine. Hyperglycemia, likely transient and reactive Code: FULL IVF: LR at 150 mL/hr, still dehydrated. Anticoa mg BID GI: protonix 40 mg IV BID Lines: femoral line, PIV. Diet: Clear liquids. ADAT. Dispo: inpatient, transferred to tele. Expected LOS > 48 H. Addendum - Attending - Attending Attestation Date/Time: 04/30/20 1200 I personally evaluated the patient and discussed the management with Dr. Moraes. I agree with the History, Examination, Assessment and Plan documented above with any addition or exceptions noted below.
[2020-04-30] MEDS: Enoxaparin Sodium 60 MG/0.6 ML SYRINGE SC SCH (08:31)
[2020-04-30] MEDS: Multivitamin W/ Minerals 1 TAB PO SCH (08:31)
[2020-04-30] MEDS: Folic Acid 1 MG TAB PO SCH (08:31)
[2020-04-30] MEDS: Magnesium Oxide 400 MG TAB PO SCH (08:31)
[2020-04-30] MEDS: Pantoprazole 40 MG VIAL IVP SCH ×2 (08:32→21:45)
[2020-04-30] MEDS: Thiamine 100 MG TAB PO SCH (08:32)
[2020-04-30] MEDS: hydrOXYzine 25 MG TAB PO PRN ×2 (08:32→23:19)
[2020-04-30] MEDS: Ondansetron PF 4 MG/2 ML Vial IVP PRN (08:32)
--- NOTE | 2020-04-30 10:53 | ULT ---
EXAM: Bilateral lower extremity venous ultrasound HISTORY: Bilateral lower extremity pain and edema COMPARISON: None TECHNIQUE: Multiplanar grayscale and color Doppler images were obtained in a bilateral lower extremit y venous ultrasound. Spectral analysis of the Doppler waveforms were performed. FINDINGS: Evaluation of the right leg is limited secondary to bandages. The right common femoral vein, profunda femoral vein and proximal superficial femoral vein were not evaluated as well as the proximal greater saphenous vein. The mid and distal superficial femoral vein and popliteal vein are patent wit hout evidence of thrombus on the right. Visible thrombus is seen in the left distal superficial femoral vein and popliteal vein that is nonoc clusive. The common femoral vein, profunda femoral vein, and more proximal superficial femoral vein show no evidence of thrombus on the left. IMPRESSION: Left lower extremity DVT as above
--- NOTE | 2020-04-30 14:24 | PRG ---
DATE OF SERVICE: 04/30/2020 SUBJECTIVE: Mr. Erwin has no complaints. OBJECTIVE: GENERAL: His ecchymotic eye is unchanged. He is afebrile. VITAL SIGNS: Heart rate is 109, respiratory rate 14, oximetry is 95% on room air, blood pressure 114/80. LUNGS: Clear. HEART: Regular rhythm. ABDOMEN: Soft. IMPRESSION: 1. Subacute submassive thromboembolic disease. 2. Ongoing heavy alcohol abuse up until this admission with blood alcohol 380 on admission. 3. Status post fall with an ecchymotic eye. PLAN: Ordered ultrasounds of his legs just in the event that he clinically deteriorates, where there would be a situation, where we will need to discuss placement of filter. We will continue Lovenox for now. We will probably switch him to p.o. anticoagulants tomorrow. Job ID: [id number]
[2020-04-30] MEDS: Enoxaparin Sodium 80 MG/0.8 ML SYRINGE SC SCH (21:45)
[2020-05-01] MEDS: Lactated Ringer's 1,000 ML IV SCH ×3 (02:14→08:43)
[2020-05-01 04:30] LABS: #Lymphocytes 0.9 thou/uL (1.20-3.40); #Monocytes 0.4 thou/uL (0.11-0.59); #Neutrophils 2.5 thou/uL (1.40-6.50); %Basophils 1.1 % (0.0-1.0); %Eosinophils 0.6 % (0.0-10.0); %Lymphocytes 23.7 % (21.0-51.0); %Monocytes 10.9 % (0.0-10.0); %Neutrophils 63.7 % (42.0-75.0); Hemoglobin 11.4 g/dL (14.0-18.0); Mean Corpuscular HGB CONC 32.6 g/dL (32.0-36.0); Mean Corpuscular Hemoglobin 32.6 pg (27.0-31.0); Mean Platelet Volume 9.9 fL (7.4-10.4); Platelet Count 129 thou/uL (130-400); RBC Distribution Width 17.7 % (11.5-14.5); White Blood Cell (WBC) Count 3.9 thou/uL (4.8-10.8)
[2020-05-01 04:57] LABS: ALT (SGPT) 35 U/L (8-55); AST (SGOT) 43 U/L (5-34); Albumin 3.2 g/dL (3.5-5.0); Alkaline Phosphatase 89 U/L (40-110); Anion Gap 14 mmol/L (10-20); BUN (Urea Nitrogen) Less than 4 mg/dL (8.4-25.7); Bilirubin, Total 0.8 mg/dL (0.2-1.2); Calc. Creatinine Clearance 115 mL/min (70-130); Calcium 8.6 mg/dL (7.8-10.44); Carbon Dioxide 24 mmol/L (22-29); Chloride 105 mmol/L (98-107); Estimated GFR-MDRD Greater than 90; Globulin 3.3 g/dL (2.4-3.5); Glucose 94 mg/dL (70-105); Potassium 3.5 mmol/L (3.5-5.1); Protein, Total 6.5 g/dL (6.0-8.3); Sodium 139 mmol/L (136-145)
[2020-05-01] MEDS: Multivitamin W/ Minerals 1 TAB PO SCH (08:34)
[2020-05-01] MEDS: Magnesium Oxide 400 MG TAB PO SCH (08:35)
[2020-05-01] MEDS: Thiamine 100 MG TAB PO SCH (08:35)
[2020-05-01] MEDS: Folic Acid 1 MG TAB PO SCH (08:35)
[2020-05-01] MEDS: Enoxaparin Sodium 80 MG/0.8 ML SYRINGE SC SCH (08:35)
[2020-05-01] MEDS: hydrOXYzine 25 MG TAB PO PRN ×3 (08:36→21:21)
[2020-05-01] MEDS: Pantoprazole 40 MG VIAL IVP SCH ×2 (08:36→21:21)
--- NOTE | 2020-05-01 09:22 | PDOC.FM ---
- Subjective Subjective: Feeling well. Ate 50% of meals yesterday. Worked w/ PT/OT yesterday and ambulated 200 feet. Doing well without morphine. Complains of some blurry vision over L eye where he fell. - Objective MAR Reviewed: Yes Vital Signs & Weight: Vital Signs (12 hours) Temp Pulse Resp BP Pulse Ox 05/01/20 07:45 98.8 F 107 H 16 139/96 H 97 05/01/20 02:15 99.1 F 92 18 145/103 H 99 05/01/20 00:18 99 Weight Admit Weight 64.41 kg Weight 64.5 kg Most Recent Monitor Data Heart Rate from ECG 117 NIBP 127/94 NIBP BP-Mean 105 Respiration from ECG 14 SpO2 100 I&O: 04/30/20 05/01/20 05/02/20 06:59 06:59 06:59 Intake Total 2226 4950 Output Total 590 8200 Balance 1636 -3250 Result Diagrams: 05/01/20 04:00 05/01/20 04:00 Phys Exam - Physical Examination Constitutional: NAD HEENT: PERRLA, sclera anicteric L eye peripheral vision mildly decreased compared to right. Respiratory: no wheezing unchanged Cardiovascular: RRR, no significant murmur sinus tach on tele, stable Musculoskeletal: no edema, pulses present Psychiatric: normal affect, A&O x 3 Skin: no rash Dx/Plan - Plan Plan: 54 yo Male w/ hx of alcohol abuse disorder, seizures since childhood, medication noncompliance, and erosive esophagitis admitted for bilateral pulmonary embolism and seizure. Bilateral pulmonary embolism Left DVT in popliteal vein, superficial femoral vein, nonocclusive - therapeutic lvx increased closer to body weight of 65 units BID. - uninsured, case mgmt consulted for outpatient help w/ anticoagulation options. Would like to know if we can do oral med like eliquis and get this paid for prior to starting med. Otherwise, will need him to have good follow up w/ warfa rin. Seizure, Hx of seizures Hx of Delirium tremens/alcohol withdrawal - resumed home dilantin at Corrected dose. - check phenytoin in 3 weeks as outpatient - ASE protocol, ativan prn available Hx of erosive esophagitis Hepatic steatosis on imaging 04/19 - patient likely w/ nutritional deficiencies 2/2 chronic alcohol use - continue PPI Macrocytic anemia likely 2/2 nutritional deficiency - replacing w/ multivitamins, folate, thiamine Facial trauma from fall Blurry vision in Left eye - outpatient ophthalmology follow up. Code: FULL IVF: SL Anticoa mg BID GI: protonix 40 mg IV BID Lines: PIV. Diet: Clear liquids. ADAT. Dispo: inpatient telemetry. PT/OT rec home. Need case management to see tomorrow. Patient is stable for discharge once we can choose an affordable anticoagulant for him. Addendum - Attending - Attending Attestation Date/Time: 05/01/20 8209 I personally evaluated the patient and discussed the management with Dr. Moraes. I agree with the History, Examination, Assessment and Plan documented above with any addition or exceptions noted below.
[2020-05-01] MEDS ORDERED: traMADol HCl 50 MG TAB PO SCH (13:00)
--- NOTE | 2020-05-01 14:19 | PRG ---
DATE OF SERVICE: 05/01/2020 SUBJECTIVE: Tj Blue is in no distress. OBJECTIVE: VITAL SIGNS: Vital signs have been stable. His heart rate is 90s to 114 today. Respiratory rates in the teens, oximetry is 97% on room air, blood pressure 123/96. LUNGS: Clear. HEART: Regular rhythm. ABDOMEN: Soft. LABORATORY DATA: Hemoglobin is 11.4 today. Electrolytes are normal. Creatinine is 0.6. IMPRESSION: Pulmonary embolism, clinically stable. We will switch him to p.o. medications. We talked about Alcoholics Anonymous and abstinence since he is going to be on anticoagulants. Job ID: [id number] MTDD
[2020-05-01] MEDS ORDERED: Metoclopramide HCl 10 MG/2 ML VIAL IVP SCH (16:30)
[2020-05-01] MEDS: Apixaban 5 MG TAB PO SCH (21:21)
[2020-05-02 04:19] LABS: #Eosinphils 0.1 thou/uL (0.0-0.7); #Lymphocytes 1.2 thou/uL (1.20-3.40); #Monocytes 0.5 thou/uL (0.11-0.59); #Neutrophils 3.2 thou/uL (1.40-6.50); %Basophils 0.6 % (0.0-1.0); %Eosinophils 1.1 % (0.0-10.0); %Lymphocytes 24.5 % (21.0-51.0); %Monocytes 9.3 % (0.0-10.0); %Neutrophils 64.5 % (42.0-75.0); Hemoglobin 11.3 g/dL (14.0-18.0); Mean Corpuscular HGB CONC 32.2 g/dL (32.0-36.0); Mean Corpuscular Hemoglobin 32.5 pg (27.0-31.0); Mean Platelet Volume 9.8 fL (7.4-10.4); Platelet Count 134 thou/uL (130-400); RBC Distribution Width 17.8 % (11.5-14.5); Red Blood Cell (RBC) Count 3.47 mill/uL (4.70-6.10)
[2020-05-02 04:40] LABS: ALT (SGPT) 28 U/L (8-55); AST (SGOT) 27 U/L (5-34); Alkaline Phosphatase 83 U/L (40-110); Anion Gap 13 mmol/L (10-20); BUN (Urea Nitrogen) Less than 4 mg/dL (8.4-25.7); Bilirubin, Total 0.5 mg/dL (0.2-1.2); Calc. Creatinine Clearance 116 mL/min (70-130); Carbon Dioxide 19 mmol/L (22-29); Chloride 108 mmol/L (98-107); Estimated GFR-MDRD Greater than 90; Globulin 3.1 g/dL (2.4-3.5); Glucose 90 mg/dL (70-105); Potassium 3.3 mmol/L (3.5-5.1); Protein, Total 6.1 g/dL (6.0-8.3); Sodium 137 mmol/L (136-145)
[2020-05-02] MEDS: Pantoprazole 40 MG VIAL IVP SCH (08:32)
[2020-05-02] MEDS: Magnesium Oxide 400 MG TAB PO SCH (08:34)
[2020-05-02] MEDS: Folic Acid 1 MG TAB PO SCH (08:34)
[2020-05-02] MEDS: Multivitamin W/ Minerals 1 TAB PO SCH (08:35)
[2020-05-02] MEDS: Thiamine 100 MG TAB PO SCH (08:36)
[2020-05-02] MEDS: Apixaban 5 MG TAB PO SCH (08:37)
--- NOTE | 2020-05-02 09:35 | PRG ---
DATE OF SERVICE: 05/02/2020 SUBJECTIVE: Tj Erwin is doing well. He has ambulated in the [place]. OBJECTIVE: VITAL SIGNS: He is afebrile. Heart rate is 99, respiratory rate 18, oximetry is 97 on room air, blood pressure is 140/101. LUNGS: Unchanged. HEART: Unchanged. ABDOMEN: Unchanged. IMPRESSION: Thromboembolic disease. PLAN: Anticoagulation with Eliquis at loading dose until he has reached the loading dose end, then cut him back to a maintenance dose. He can follow up with me in 4 to 6 weeks. Job ID: [id number]
[2020-05-02] MEDS ORDERED: Potassium Chloride 20 MEQ TAB PO SCH (10:30)
--- NOTE | 2020-05-02 10:35 | PDOC.FM ---
- Subjective Subjective: Patient feeling well this morning. He did complain of a Headache yesterday which resolved after given Reglan. Awaiting arrangement of oral anticoagulant. - Objective Vital Signs & Weight: Vital Signs (12 hours) Temp Pulse Resp BP BP Pulse Ox 05/02/20 07:48 98.5 F 99 14 148/101 H 97 05/02/20 06:36 98.9 F 84 150/105 H 99 05/02/20 00:00 99 F 135/99 H 135/99 H Weight Admit Weight 64.41 kg Weight 64.5 kg Most Recent Monitor Data Heart Rate from ECG 117 NIBP 127/94 NIBP BP-Mean 105 Respiration from ECG 14 SpO2 100 I&O: 05/01/20 05/02/20 05/03/20 06:59 06:59 06:59 Intake Total 4950 2460 Output Total 8200 2099 Balance -3250 361 Result Diagrams: 05/02/20 03:57 05/02/20 03:57 Phys Exam - Physical Examination Constitutional: NAD HEENT: moist MMs, sclera anicteric bruising above right eye Neck: supple, full ROM clear, even respirations, CTAB Cardiovascular: RRR, no significant murmur Gastrointestinal: soft, non-tender, no distention Musculoskeletal: no edema, pulses present Neurological: normal sensation, moves all 4 limbs Psychiatric: normal affect, A&O x 3 Skin: no rash Dx/Plan (1) Pulmonary embolism, bilateral Code(s): I26.99 - OTHER PULMONARY EMBOLISM WITHOUT ACUTE COR PULMONALE Status: Acute (2) Hypokalemia Code(s): E87.6 - HYPOKALEMIA Status: Acute (3) Erosive esophagitis Code(s): K22.10 - ULCER OF ESOPHAGUS WITHOUT BLEEDING Status: Acute (4) Seizure Code(s): R56.9 - UNSPECIFIED CONVULSIONS Status: Acute (5) Alcohol abuse Code(s): F10.10 - ALCOHOL ABUSE, UNCOMPLICATED Status: Chronic - Plan Plan: 54 yo Male w/ hx of alcohol abuse disorder, seizures since childhood, medication noncompliance, and erosive esophagitis admitted for bilateral pulmonary embolism and seizure. #Bilateral pulmonary embolism #Left DVT in popliteal vein, superficial femoral vein, nonocclusive - demonstrated on CTA - ECHO with severe right ventricle dilation, EF 65-70% - therapeutic lvx increased closer to body weight of 65 units BID, transitioned to Eliquis 10 mg BID for loading dose then will need to transition to 5 mg BID to be continued for at least 3 months - uninsured, case mgmt consulted for outpatient help w/ anticoagulation options. Would prefer Eliquis -Otherwise, will need him to have good follow up w/ warfarin or lovenox #Seizure, Hx of seizures #Hx of Delirium tremens/alcohol withdrawal - resumed home dilantin at Corrected dose. - check phenytoin in 3 weeks as outpatient - ASE protocol, ativan prn available #Hx of erosive esophagitis #Hepatic steatosis on imaging 04/19 - patient likely w/ nutritional deficiencies 2/2 chronic alcohol use - continue PPI #Macrocytic anemia likely 2/2 nutritional deficiency - replacing w/ multivitamins, folate, thiamine #Facial trauma from fall - Blurry vision in Left eye - outpatient ophthalmology follow up #Hypokalemia -K 3.3 this morning, will replete -monitor AM BMP Code: FULL IVF: SL Anticoag: Eliquis 10 mg BID GI: protonix 40 mg IV BID Lines: PIV. Diet: Clear liquids. ADAT. Dispo: inpatient telemetry. PT/OT rec home. Need case management to arrange for antonio anticoagulant. Patient is stable for discharge once an affordable anticoagulant is arranged.
[2020-05-02] MEDS ORDERED: Amlodipine 5 MG TAB PO SCH (10:45)
--- NOTE | 2020-05-02 13:33 | PRG ---
DATE OF SERVICE: 05/02/2020 Mr. Erwin is sitting in bed quietly and in no distress. We are waiting okay on an oral DOAC after which he can be discharged to follow up with his community resource officer for his bilateral pulmonary emboli. Job ID: [id number]
[2020-05-02 15:52] VITALS: BP 134/77; TEMP 97.4
--- NOTE | 2020-05-03 01:43 | DIS ---
DATE OF ADMISSION: 04/28/2020 DATE OF DISCHARGE: 05/02/2020 CONSULTS: 1. Cardiology, Dr. Anne. 2. Pulmonology, Dr. Colin. 3. Case Management. 4. Physical Therapy. 5. Occupational Therapy. 6. Dietary. PROCEDURES: 1. Abdomen and pelvis CT on April 28, 2020: No evidence for an acute process. Severe hepatic steatosis is re-demonstrated. Multiple stable compression deformities involving the lumbar spine. 2. Brain CT on April 28, 2020: Anterior-superior frontal scalp swelling. No associated fracture or intracranial hemorrhage. 3. Facial bone CT on April 28, 2020: No evidence for fracture. 4. Cervical spine CT on April 28, 2020: No evidence for fracture or traumatic subluxation. 5. Chest x-ray on April 28, 2020: No acute findings. Stable tortuosity of the descending thoracic aorta, right shoulder arthroplasty, and embedded loop recorder in the left lower hemothorax. 6. Chest CTA on April 28, 2020: Exam is markedly positive for pulmonary embolism. Large clot burden is present throughout the lobes. Large amount of clot is present within the bilateral main pulmonary arteries. Right-sided heart strain is present. Right ventricle to left ventricle ratio is 2.2, markedly abnormal. Chronic T12 compression fracture. Right shoulder hemiarthroplasty. Healed rib fractures. Fatty infiltration of liver. 7. Echocardiogram on April 29, 2020: Ejection fraction estimated at 65% to 70%. Mildly dilated left atrium. Moderately enlarged right atrium size. Severely enlarged right ventricle cavity. Left ventricle size normal. Mild mitral regurgitation. [id number] tricuspid regurgitation. Right ventricular systolic pressure elevated at 56 mmHg. Dilation of the IVC. 8. Bilateral lower extremity venous Doppler on April 30, 2020: Left lower extremity deep vein thrombosis seen in the left distal superficial femoral vein and popliteal vein that is nonocclusive. PRIMARY DIAGNOSIS: Bilateral pulmonary embolism. SECONDARY DIAGNOSES: 1. Left deep vein thrombosis in the superficial femoral and popliteal vein, nonocclusive. 2. Seizure disorder. 3. History of delirium tremens with alcohol withdrawal. 4. History of grade 4 erosive esophagitis. 5. Hepatic steatosis. 6. Macrocytic anemia, likely secondary to nutritional deficiency. 7. Facial trauma, status post fall. 8. Hypokalemia. DISCHARGE MEDICATIONS: 1. Wellbutrin 400 mg p.o. at bedtime. 2. Hydroxyzine 25 mg p.o. q.4 hours p.r.n. 3. Pantoprazole 20 mg p.o. b.i.d. 4. Phenytoin sodium extended 200 mg p.o. b.i.d. 5. Eliquis 5 mg p.o. b.i.d., to be continued for at least 3 months. 6. Potassium chloride 10 mEq p.o. q.a.m. 7. Amlodipine 5 mg p.o. daily. DISCONTINUED MEDICATIONS: None. HISTORY OF PRESENT ILLNESS/HOSPITAL COURSE: The patient is a 54-year-old male, who presents to the ED on April 28, 2020 after a seizure. Due to acute intoxication of alcohol, the history obtained from the patient was minimal. Per witness reports that were given to EMS, the patient had a seizure outside of a local motel and he hit his head on the concrete. The patient was recently discharged from the hospital approximately 2 weeks ago for a GI bleed and alcohol withdrawal, during the hospitalization, was found to have grade 4 erosive esophagitis. The patient has had continued alcohol abuse and minimal water intake since his discharge from the hospital a few weeks ago. In the Emergency Department, the patient was given 4 L of normal saline, banana bag, 3 mg of Ativan, 8 mg Zofran, 80 mg Protonix, 2 g cefepime, 1 g vancomycin, and 1500 mg of Keppra. The patient was admitted to inpatient in the critical care unit for further monitoring of seizures and alcohol withdrawal. The patient did meet SIRS criteria with hypotension and tachycardia upon admission. This was thought to be likely secondary to volume depletion, but due to limited history, he was initially continued on antibiotics and blood and urine cultures were followed. The patient had a femoral central line placed due to initial hypotension. However, pressures corrected on their own, and the patient never required pressors. The patient was placed on ASE protocol and did initially require some Ativan. The patient's initial troponin was 0.868, this was trended and remained stable. The following morning on April 29, 2020, the patient was awake, alert, oriented x3, stating that he had pain on the right side of his body. He did remember falling and hitting the concrete. The patient was initially started on therapeutic Lovenox for findings of bilateral pulmonary embolisms. He had used warfarin in the past, but was noncompliant. On May 01, he was switched to Eliquis loading dose of 10 mg p.o. b.i.d. The patient will need to continue Eliquis therapy at 5 mg p.o. b.i.d. for at least 3 months. This needs to be followed by patient's PCP Dr. Levy, who is located in [place], [place]. On April 30, 2020 the patient was transferred out of the CCU onto the telemetry unit. His clinical condition continued to improve. The patient stated that he would like to stop drinking alcohol and had previously attended rehab. Wants to attempt to quit alcohol on an outpatient basis. Case Management was consulted for resources to provide the patient with this. On May 01, the patient was able to begin working with Physical Therapy and Occupational Therapy and was ambulating well in the hallways. The patient's pain was under control. On May 02, 2020, the patient was arranged for antonio Eliquis, 30-day therapy. The patient was instructed that he needs close followup with his PCP to arrange for further oral anticoagulation therapy. Return precautions given. On the afternoon of May 02, 2020, the patient was discharged in stable condition to home. DISPOSITION: Stable. DISCHARGE INSTRUCTIONS: 1. Location: Home. 2. Diet: Heart healthy. 3. Activity: As tolerated. 4. Follow up with maintenance analyst, Dr. Colin in 4 to 6 weeks. 5. Follow up with PCP, Dr. Levar Levy in [place], [place], in 2 to 3 days. Job ID: [id number] MTDD
[2020-05-03] MEDS ORDERED: Potassium Chloride 10 MEQ TAB PO SCH (08:00)
[2020-05-03] MEDS ORDERED: Amlodipine 5 MG TAB PO SCH (09:00)
== END 2020-05-02 15:39 | disposition home or self-care (01) | DRG 100 ==
LOC: ERS 18:53 → CCU 21:32 → 2NO 04-29 22:29
PROVIDERS: ADMIT Family Medicine; ATTEND Family Medicine
DX: G40.509 Epileptic seizures related to external causes, not intractable, without status epilepticus (principal); I26.99 Other pulmonary embolism without acute cor pulmonale; R57.1 Hypovolemic shock; K22.10 Ulcer of esophagus without bleeding; E87.0 Hyperosmolality and hypernatremia; I82.412 Acute embolism and thrombosis of left femoral vein; I82.432 Acute embolism and thrombosis of left popliteal vein; I24.8 Other forms of acute ischemic heart disease; E87.2 Acidosis; I42.6 Alcoholic cardiomyopathy; F10.239 Alcohol dependence with withdrawal, unspecified; F41.9 Anxiety disorder, unspecified; R00.0 Tachycardia, unspecified; I95.9 Hypotension, unspecified; E87.6 Hypokalemia; Y90.8 Blood alcohol level of 240 mg/100 ml or more; S05.10XA Contusion of eyeball and orbital tissues, unspecified eye, initial encounter; W19.XXXA Unspecified fall, initial encounter; K76.0 Fatty (change of) liver, not elsewhere classified; D53.9 Nutritional anemia, unspecified; R73.9 Hyperglycemia, unspecified; Z88.8 Allergy status to other drugs, medicaments and biological substances; Z88.6 Allergy status to analgesic agent; Z79.899 Other long term (current) drug therapy; Z90.49 Acquired absence of other specified parts of digestive tract; Z98.890 Other specified postprocedural states; Z20.828 Contact with and (suspected) exposure to other viral communicable diseases
CPT/HCPCS: 36415; 70450; 70486; 71045; 71275; 72125; 74177; 80053; 80185; 80306; 80307; 81001; 82550; 82553; 83036; 83690; 83735; 83880; 84145; 84484; 85025; 85520; 85610; 87040; 87086; 87635; 93005; 93306; 93970; 96361; 96365; 96368; 96375; 96376; C9113; J0692; J1650; J1953; J2060; J2270; J2405; J2765; J3370; J3411; J3475; J3490; J7042; Q9967; U0003

== ENCOUNTER 2020-05-06 19:12 | Emergency (ER) | payer SELFPAY ==
[2020-05-06 21:16] LABS: #Lymphocytes 0.7 thou/uL (1.20-3.40); #Monocytes 0.2 thou/uL (0.11-0.59); %Eosinophils 0.4 % (0.0-10.0); %Lymphocytes 24.1 % (21.0-51.0); %Monocytes 7.2 % (0.0-10.0); %Neutrophils 67.4 % (42.0-75.0); Hemoglobin 14.8 g/dL (14.0-18.0); Mean Corpuscular Hemoglobin 32.1 pg (27.0-31.0); Mean Platelet Volume 8.2 fL (7.4-10.4); Platelet Count 212 thou/uL (130-400); RBC Distribution Width 18.1 % (11.5-14.5); Red Blood Cell (RBC) Count 4.62 mill/uL (4.70-6.10); White Blood Cell (WBC) Count 2.9 thou/uL (4.8-10.8)
[2020-05-06 21:42] LABS: ALT (SGPT) 28 U/L (8-55); AST (SGOT) 67 U/L (5-34); Albumin 4.3 g/dL (3.5-5.0); Alcohol 440 mg/dL (Less than 10); Alkaline Phosphatase 115 U/L (40-110); Anion Gap 26 mmol/L (10-20); BUN (Urea Nitrogen) 9 mg/dL (8.4-25.7); Bilirubin, Total 0.6 mg/dL (0.2-1.2); Calc. Creatinine Clearance 0 mL/min (70-130); Calcium 8.2 mg/dL (7.8-10.44); Carbon Dioxide 20 mmol/L (22-29); Chloride 105 mmol/L (98-107); Estimated GFR-MDRD Greater than 90; Globulin 4.2 g/dL (2.4-3.5); Glucose 109 mg/dL (70-105); Potassium 3.9 mmol/L (3.5-5.1); Protein, Total 8.5 g/dL (6.0-8.3); Sodium 147 mmol/L (136-145)
[2020-05-07 01:51] LABS: Bacteria/HPF None Seen HPF (None Seen); Bilirubin Negative (Negative); Blood, Urine 1+ (Negative); Clarity Turbid (Clear); Glucose, Urine (Dipstick) 30 mg/dL (Negative); Ketone, Urine 20 mg/dL (Negative); Leukocyte Negative Leu/uL (Negative); Nitrite Negative (Negative); Protein, Urine (Dipstick) 200 mg/dL (Neg-Trace); RBC/HPF 0-3 HPF (0-3); Specific Gravity, Urine 1.028 (1.002-1.036); Squamous Epithelial 0-3 HPF (0-3); Urobilinogen Normal mg/dL (Less than 2); WBC/HPF 0-3 HPF (0-3); pH, Urine 5.5 (5.0-9.0)
[2020-05-07 02:06] LABS: Amphetamine Not Detected (NotDetected); Barbiturates Screen Detected (NotDetected); Benzodiazepine Screen Detected (NotDetected); Cocaine Metabolite Screen Not Detected (NotDetected); Medtox Control Line Valid? VALID (VALID); Medtox Reader # READER 1; Methadone Not Detected (NotDetected); Methamphetamine Not Detected (NotDetected); Opiate Screen Not Detected (NotDetected); Oxycodone Screen Not Detected (NotDetected); Phencyclidine (PCP) Not Detected (NotDetected); THC/Cannabinoid Screen Not Detected (NotDetected); Tricyclic Screen Not Detected (NotDetected)
[2020-05-07] MEDS ORDERED: Morphine 4 MG/ML VIAL ONE ×2 (02:44)
[2020-05-07] MEDS ORDERED: Ondansetron ODT 8 MG TAB ONE (02:50)
== END 2020-05-07 03:00 | disposition home or self-care (01) ==
LOC: ERS 19:12
DX: F10.220 Alcohol dependence with intoxication, uncomplicated (principal); R52 Pain, unspecified; G40.909 Epilepsy, unspecified, not intractable, without status epilepticus; F20.9 Schizophrenia, unspecified
CPT/HCPCS: 36415; 80053; 80306; 80307; 81003; 81015; 82271; 83690; 85025; 93005; 96372; J2270; Q0162

== ENCOUNTER 2020-05-08 22:23 | Inpatient (IN) | payer OTHER, SELFPAY ==
[2020-05-09 00:24] LABS: Albumin 3.7 g/dL (3.5-5.0)
[2020-05-09 00:25] LABS: AST (SGOT) 77 U/L (5-34); Anion Gap 26 mmol/L (10-20); Bilirubin, Total 0.6 mg/dL (0.2-1.2); Calc. Creatinine Clearance 0 mL/min (70-130); Calcium 7.7 mg/dL (7.8-10.44); Carbon Dioxide 21 mmol/L (22-29); Chloride 100 mmol/L (98-107); Estimated GFR-MDRD Greater than 90; Globulin 3.8 g/dL (2.4-3.5); Potassium 3.6 mmol/L (3.5-5.1); Protein, Total 7.5 g/dL (6.0-8.3); Sodium 143 mmol/L (136-145)
[2020-05-09 00:27] LABS: Glucose 72 mg/dL (70-105)
[2020-05-09 00:29] LABS: Alkaline Phosphatase 101 U/L (40-110)
[2020-05-09 00:31] LABS: BUN (Urea Nitrogen) 14 mg/dL (8.4-25.7)
[2020-05-09 00:32] LABS: Salicylate Less than 8.0 mg/dL (15.0-30.0)
[2020-05-09 00:33] LABS: ALT (SGPT) 33 U/L (8-55); Acetaminophen Less than 6.0 mcg/mL (10.0-30.0); CK (CPK) 53 U/L (30-200)
[2020-05-09 00:34] LABS: Bacteria/HPF None Seen HPF (None Seen); Bilirubin Negative (Negative); Blood, Urine Trace (Negative); Clarity Clear (Clear); Glucose, Urine (Dipstick) Normal (Negative); Ketone, Urine 60 mg/dL (Negative); Leukocyte Negative Leu/uL (Negative); Nitrite Negative (Negative); Protein, Urine (Dipstick) 100 mg/dL (Neg-Trace); RBC/HPF 0-3 HPF (0-3); Specific Gravity, Urine 1.024 (1.002-1.036); Squamous Epithelial None Seen HPF (0-3); Urobilinogen Normal mg/dL (Less than 2); WBC/HPF 0-3 HPF (0-3)
[2020-05-09 00:35] LABS: Amphetamine Not Detected (NotDetected); Barbiturates Screen Not Detected (NotDetected); Benzodiazepine Screen Detected (NotDetected); Cocaine Metabolite Screen Not Detected (NotDetected); Medtox Control Line Valid? VALID (VALID); Medtox Reader # READER 1; Methadone Not Detected (NotDetected); Methamphetamine Not Detected (NotDetected); Opiate Screen Detected (NotDetected); Oxycodone Screen Not Detected (NotDetected); Phencyclidine (PCP) Not Detected (NotDetected); THC/Cannabinoid Screen Not Detected (NotDetected); Tricyclic Screen Not Detected (NotDetected)
[2020-05-09 00:48] LABS: Alcohol 530 mg/dL (Less than 10)
[2020-05-09] MEDS ORDERED: Multivitamins, Adult 10 ML, Thiamine HCl 100 MG, Folic Acid 1 MG in Dextrose 5 %-0.45 %... IV SCH (02:00)
--- NOTE | 2020-05-09 02:35 | PDOC.FPRHP ---
- History of Present Illness Chief Complaint: SI/seizure/EtOH intoxication History of Present Illness: Pt is a 54 yo M with PMH of HTN, alcohol abuse, b/l pulmonary embolism, seizure disorder, anxiety and depression presents with SI, possible seizure, and alcohol intoxication. Questioning is limited 2/2 patient being severely intoxicated but he states the love of his life broke up with him so he drank 2L over the last 1- 2 days to try to end his life. He states his last drink was around 12pm on 05/08/20 when he passed out and states he hit his head. He thinks he may have had a seizure. He has not been taking his home Dilantin because it was too expensive. He has suicidal ideation but no plan. He endorses feeling shaky and "going into DTs", abdominal pain with N/V. Denies CP, SOB, fever, recent illness, edema. ED Course: 1L bolus, banana bag - Allergies/Adverse Reactions Allergies Allergy/AdvReac Type Severity Reaction Status Date / Time acetaminophen [From [facility]] Allergy Verified 05/09/20 05:39 haloperidol [From Haldol] Allergy Verified 05/09/20 05:39 hydrocodone [From [facility]] Allergy Verified 05/09/20 05:39 - Home Medications Medication Instructions Recorded Confirmed Type Phenytoin Sodium Extended 200 mg PO BID #60 cap 05/02/20 05/09/20 Rx [Dilantin] - History PMHx: seizures, arrhythmia with loop recorder, ETOH abuse with previous DTs PSHx: R shoulder hemiarthroplasty, appendectomy FHx: reports uncle with unknown hereditary medical condition Social: daily etoh use 5-6 beers per day, more on weekends; Reports that he has dipped tobacco for >10 years; denies drug use - Review of Systems ROS unobtainable: other (limited questioning 2/2 patient being severly intoxicated) General: denies: fever/chills, weight/appetite/sleep changes Eyes: reports: vision changes (blurry right eye) Respiratory: denies: cough, shortness of breath Cardiovascular: denies: chest pain, palpitation, edema Gastrointestinal: reports: nausea, vomiting, abdominal pain Skin: denies: rashes, jaundice Neurological: reports: weakness Psychological: reports: anxiety, depression - Vital signs BP: 133/95 HR: 79 RR: 16 Tmax: 97.9 Pox: 96% on RA Wt: 58kg - Physical Exam -Constitutional: agitated, paranoid, tremulous; patient is intoxicated HEENT: PERRLA (pupils dilated), EOMI, conjunctiva clear, grossly normal hearing Neck: supple, FROM Heart: normal S1/S2 -Heart: tachycardic Lungs: CTAB, no respiratory distress, good air movement Abdomen: soft, bowel sounds present -Abdomen: diffusely TTP Musculoskeletal: normal tone Skin: no rash/lesions -Skin: ecchymosis over right eye Heme/Lymphatic: no unusual bruising or bleeding, no purpura -Psychiatric: SI, no plan, poor insight FMR H&P: Results - Labs Result Diagrams: 05/09/20 04:45 05/09/20 04:45 Lab results: Sodium 143 mmol/L (136-145) 05/08/20 23:48 Potassium 3.6 mmol/L (3.5-5.1) 05/08/20 23:48 Chloride 100 mmol/L (98-107) 05/08/20 23:48 Carbon Dioxide 21 mmol/L (22-29) L 05/08/20 23:48 BUN 14 mg/dL (8.4-25.7) 05/08/20 23:48 Creatinine 0.70 mg/dL (0.7-1.3) 05/08/20 23:48 Glucose 72 mg/dL (70-105) 05/08/20 23:48 Calcium 7.7 mg/dL (7.8-10.44) L 05/08/20 23:48 Total Bilirubin 0.6 mg/dL (0.2-1.2) 05/08/20 23:48 AST 77 U/L (5-34) H 05/08/20 23:48 ALT 33 U/L (8-55) 05/08/20 23:48 Alkaline Phosphatase 101 U/L (40-110) 05/08/20 23:48 Creatine Kinase 53 U/L (30-200) 05/08/20 23:48 Serum Total Protein 7.5 g/dL (6.0-8.3) 05/08/20 23:48 Albumin 3.7 g/dL (3.5-5.0) 05/08/20 23:48 Urine Ketones 60 mg/dL (Negative) A 10/05/20 00:00 Urine Blood Trace (Negative) A 05/09/20 00:00 Urine Nitrite Negative (Negative) 05/09/20 00:00 Ur Leukocyte Esterase Negative Celso/uL (Negative) 05/09/20 00:00 Urine RBC 0-3 HPF (0-3) 05/09/20 00:00 Urine WBC 0-3 HPF (0-3) 05/09/20 00:00 Ur Squamous Epith Cells None Seen HPF (0-3) 05/09/20 00:00 Urine Bacteria None Seen HPF (None Seen) 05/09/20 00:00 FMR H&P: A/P - Plan Alcohol Abuse - plasma alcohol on admission 530 -banana bag and 1L in ED - patient endorses drinking 2L of Vodka - ASE protocol in place - Ativan q1H PRN available - CM consulted for alcohol rehab resources - continue to monitor Syncope likely 2/2 seizure disorder vs alcohol intoxication - known seizure disorder since childhood, on dilantin but patient has not been taking b/c "too expensive" - will check dilantin level, resume home medication after loading dose - seizure precautions in place - follow up brain CT from ED Suicidal Ideation - no active plan - continue home meds for depression/anxiety - MHMR consult once medically cleared Grade D Severe Erosive Esophagitis - EGD with GI on previous admission, discharged home on 20 mg protonix BID - start Protonix 40mg BID Hypokalemia -aware, replace as indicated -follow up repeat BMP Hypomagnesemia -aware, replace as indicated -follow up Mg level after replacement Drug Use - UDS positive for benzos and opiates Anxiety - home Atarax HTN -aware, continue home meds Pulmonary Embolism -discharged on home Eliquis on previous admission -started on therapeutic Lovenox in hospital as patient is non compliant with Eliquis PCP: none Diet: NPO as patient is severely intoxicated Fluids: LR @ 100 mls/hr PPx: Protonix DVT ppx: therapeutic Lovenox Code: Full Dispo: will admit to inpatient tele for further monitoring; likely LOS >48 hrs FMR H&P: Upper Level - Plan Date/Time: 05/09/20 0205 Marty Victor DO, have evaluated this patient and agree with findings/plan as outlined by product development intern resident. Pertinent changes/additions are listed here. 54 yo w pmhx sig for alcohol abuse, PE, and esophageal varices presents to ED with SI He reports he was recently discharged from [facility] and no longer wants to live. On exam pt EtOH level is in the 500s and history is limited. Per chart review pt has recently been admitted for seizures and alcohol withdrawals. He reports this time he has not taken his medication for at least a week and believes he had a seizure this evening. In the ED he was given 1L NS and a banana bag. PE is significant for a protuberant abdomen and muscle atrophy, no tremor or tachycardia present. In the ED peripheral venous access was unobtainable so a CV C was placed. labs significant for anemia, hypokalemia, elevated EtOH and hypomagnesemia, dilantin level of zero. I have reviewed CT brain and find no evidence of acute abnormality. For his acute alcohol intoxication we will initiate ASE protocol with ativan prn, currently npo, begin maintenance fluids. We will begin loading pt with dilantin for his seizure disorder, with repeat level, seizure precautions in place. monitor and replace electrolytes as needed. will begin therapeutic lovenox for PE. IV protonix for hx of varices/gastritis, no signs of active bleeding at this time. [facility] will need to be consulted once pt is medically stable for SI. admit to tele inpatient for continuous cardiac m onitoring, ELOS>48hrs. Addendum - Attending - Attending Attestation Date/Time: 05/09/20 0010 I personally evaluated the patient and discussed the management with Dr. Umana/Teodoro. I agree with the History, Examination, Assessment and Plan documented above with any addition or exceptions noted below.
[2020-05-09] MEDS ORDERED: Senokot S 8.6-50 MG TAB PO PRN (02:36)
[2020-05-09] MEDS ORDERED: hydrOXYzine 25 MG TAB PO PRN (02:47)
[2020-05-09 05:00] LABS: #Basophils 0.1 thou/uL (0.0-0.2); #Lymphocytes 1.1 thou/uL (1.20-3.40); #Monocytes 0.4 thou/uL (0.11-0.59); #Neutrophils 1.1 thou/uL (1.40-6.50); %Basophils 2.5 % (0.0-1.0); %Eosinophils 0.8 % (0.0-10.0); %Lymphocytes 40.8 % (21.0-51.0); %Monocytes 14.6 % (0.0-10.0); %Neutrophils 41.3 % (42.0-75.0); Hemoglobin 12.9 g/dL (14.0-18.0); Mean Corpuscular Hemoglobin 32.1 pg (27.0-31.0); Mean Platelet Volume 7.7 fL (7.4-10.4); Platelet Count 192 thou/uL (130-400); RBC Distribution Width 17.4 % (11.5-14.5); Red Blood Cell (RBC) Count 4.03 mill/uL (4.70-6.10); White Blood Cell (WBC) Count 2.7 thou/uL (4.8-10.8)
[2020-05-09 05:21] LABS: ALT (SGPT) 31 U/L (8-55); AST (SGOT) 66 U/L (5-34); Albumin 3.6 g/dL (3.5-5.0); Alkaline Phosphatase 92 U/L (40-110); Anion Gap 24 mmol/L (10-20); BUN (Urea Nitrogen) 13 mg/dL (8.4-25.7); Bilirubin, Total 0.6 mg/dL (0.2-1.2); Calc. Creatinine Clearance 0 mL/min (70-130); Calcium 7.8 mg/dL (7.8-10.44); Carbon Dioxide 22 mmol/L (22-29); Chloride 99 mmol/L (98-107); Estimated GFR-MDRD Greater than 90; Globulin 3.4 g/dL (2.4-3.5); Glucose 104 mg/dL (70-105); Potassium 3.2 mmol/L (3.5-5.1); Sodium 142 mmol/L (136-145)
[2020-05-09] MEDS ORDERED: Sodium Chloride 0.9% (PF) 10 ML VIAL FS PRN (05:45)
[2020-05-09] MEDS ORDERED: Fosphenytoin Sodium 200 MG in Sodium Chloride 0.9% 100 ML IVPB SCH ×2 (06:00→17:00)
[2020-05-09] MEDS: Potassium Chloride 20 MEQ in Premix Bag 1 BAG IVPB SCH ×2 (06:18→10:12)
--- NOTE | 2020-05-09 08:19 | CT ---
PRELIMINARY REPORT/[facility]/EMERGENCY AFTER HOURS PROCEDURE: EXAM: CT Head Without Intravenous Contrast. CLINICAL HISTORY: AMS/SEIZURE; 54/M pt presents with complaint of suicidal ideations and visual hallucinations for the past few days. The patient reports he was recently discharged from "[facility]" 2 days ago and now does not want to live anymore. The patient states he drank 2 liters of vodka tonight because he wanted to . The patient states he also feels like he had a seizure earlier tonight. Pt states he has a hx of se izures and is supposed to be taking Dilantin but is not taking it TECHNIQUE: Axial computed tomography images of the head/brain without intravenous contrast. COMPARISON: CT\\SR - CT BRAIN WO CON - 04/28/2020 07:46 PM CDT FINDINGS: BRAIN: There is stable diffuse chamber atrophy. No acute intraparenchymal hemorrhage. No mass lesion. No CT evidence for acute territorial infarct. N o midline shift or extra-axial collection. VENTRICLES: No hydrocephalus. ORBITS: The orbits are unremarkable. SINUSES AND MASTOIDS: The paranasal sinuses and mastoid air cells are clear. SOFT TISSUES: Mild right anterior frontal scalp soft tissue swelling remains. No radiopaque foreign body is seen. BONES: No acute skull fracture. IMPRESSION: No acute intracranial abnormality. Stable mild right anterior frontal scalp swelling ELECTRONICALLY SIGNED BY: Renuka Velázquez MD May 09, 2020 12:49:56 AM CDT FINAL REPORT EMERGENCY AFTER HOURS CT BRAIN WITHOUT CONTRAST: FINDINGS/IMPRESSION: I agree with the preliminary report given by [facility]. POS: OFF
[2020-05-09] MEDS ORDERED: Apixaban 5 MG TAB PO SCH (09:00)
[2020-05-09] MEDS: Pantoprazole 40 MG VIAL IVP SCH ×2 (10:11→21:09)
[2020-05-09] MEDS: Lactated Ringer's 1,000 ML IV SCH ×2 (10:11→15:59)
[2020-05-09] MEDS: Enoxaparin Sodium 60 MG/0.6 ML SYRINGE SC SCH ×2 (10:11→21:05)
[2020-05-09] MEDS: Potassium Chloride 10 MEQ TAB PO SCH (10:11)
[2020-05-09] MEDS: Amlodipine 5 MG TAB PO SCH (10:12)
[2020-05-09] MEDS ORDERED: Morphine 2 MG/ML VIAL SLOW IVP SCH (10:45)
[2020-05-09] MEDS: Ondansetron ODT 4 MG TAB PO PRN (11:16)
[2020-05-09 13:47] LABS: SARS-CoV-2 MS2 Negative; SARS-CoV-2 N Gene Negative; SARS-CoV-2 S Gene Positive; SARS-CoV-2 by NAA DETECTED (NotDetected); SARS-CoV-2 orf1ab Positive
[2020-05-09] MEDS: Lorazepam 2 MG/ML VIAL SLOW IVP PRN ×2 (13:52→19:02)
[2020-05-09] MEDS ORDERED: Diazepam 5 MG TAB PO SCH (15:30)
[2020-05-09 17:44] LABS: Hemoglobin 11.6 g/dL (14.0-18.0); Platelet Count 161 thou/uL (130-400)
[2020-05-09 18:17] LABS: Calc. Creatinine Clearance 101 mL/min (70-130); Estimated GFR-MDRD Greater than 90
[2020-05-09] MEDS ORDERED: Nitroglycerin 2% Ointment 1 INCH/1 GM Packet ONE (18:55)
[2020-05-09] MEDS ORDERED: FLU VACC QS2020-21(6MOS UP)/PF 60 MCG/0.5 ML SYRINGE IM ONE (21:00)
[2020-05-09] MEDS: buPROPion HCl 100 MG TAB PO SCH (21:04)
[2020-05-09] MEDS: Diazepam 10 MG/2 ML SYRINGE IVP SCH (21:05)
[2020-05-09] MEDS: Ondansetron PF 4 MG/2 ML Vial IVP PRN (21:10)
[2020-05-10] MEDS: Lactated Ringer's 1,000 ML IV SCH ×3 (01:20→20:24)
[2020-05-10] MEDS: Ondansetron ODT 4 MG TAB PO PRN (01:20)
[2020-05-10] MEDS: Diazepam 10 MG/2 ML SYRINGE IVP SCH ×3 (01:20→10:30)
[2020-05-10 05:17] LABS: #Basophils 0.1 thou/uL (0.0-0.2); #Lymphocytes 0.9 thou/uL (1.20-3.40); #Monocytes 0.6 thou/uL (0.11-0.59); %Basophils 1.3 % (0.0-1.0); %Eosinophils 0.3 % (0.0-10.0); %Lymphocytes 19.3 % (21.0-51.0); %Monocytes 13.9 % (0.0-10.0); %Neutrophils 65.1 % (42.0-75.0); Hemoglobin 12.2 g/dL (14.0-18.0); Mean Corpuscular HGB CONC 32.3 g/dL (32.0-36.0); Mean Corpuscular Hemoglobin 32.7 pg (27.0-31.0); Mean Platelet Volume 8.7 fL (7.4-10.4); Platelet Count 144 thou/uL (130-400); RBC Distribution Width 17.4 % (11.5-14.5); Red Blood Cell (RBC) Count 3.72 mill/uL (4.70-6.10); White Blood Cell (WBC) Count 4.6 thou/uL (4.8-10.8)
[2020-05-10 05:38] LABS: ALT (SGPT) 23 U/L (8-55); AST (SGOT) 41 U/L (5-34); Albumin 3.2 g/dL (3.5-5.0); Alkaline Phosphatase 85 U/L (40-110); Anion Gap 16 mmol/L (10-20); BUN (Urea Nitrogen) 6 mg/dL (8.4-25.7); Bilirubin, Total 1.3 mg/dL (0.2-1.2); Calc. Creatinine Clearance 107 mL/min (70-130); Calcium 8.2 mg/dL (7.8-10.44); Carbon Dioxide 21 mmol/L (22-29); Chloride 100 mmol/L (98-107); Dilantin 3.4 ug/mL (10.0-20.0); Estimated GFR-MDRD Greater than 90; Globulin 3.2 g/dL (2.4-3.5); Glucose 99 mg/dL (70-105); Potassium 3.9 mmol/L (3.5-5.1); Protein, Total 6.4 g/dL (6.0-8.3); Sodium 133 mmol/L (136-145)
--- NOTE | 2020-05-10 06:11 | PDOC.FM ---
- Subjective Subjective: Patient was sleeping at the time of evaluation, but was easily arousable to verbal stimuli and sternal rub. Patient's only complaint at the time of evaluation was mild ABD Pain and several episodes nausea with non-bloody v omiting. Sitter was present in the room at the time of evaluation and denied any acute changes. - Objective Vital Signs & Weight: Vital Signs (12 hours) Temp Pulse Resp BP Pulse Ox 05/09/20 23:40 98.5 F 116 H 20 135/95 H 97 05/09/20 19:30 97.3 F L 128 H 20 113/85 96 05/09/20 18:25 98.1 F 129 H 20 129/75 93 L Weight Admit Weight 57.516 kg Weight 62.686 kg I&O: 05/08/20 05/09/20 05/10/20 06:59 06:59 06:59 Intake Total 1220 Output Total 3300 Balance -2079 Result Diagrams: 05/10/20 04:59 05/10/20 04:59 Phys Exam - Physical Examination Constitutional: NAD HEENT: moist MMs, sclera anicteric Neck: supple, full ROM Respiratory: no wheezing Mild tachycardia noted on monitor Gastrointestinal: soft, non-tender, no distention Musculoskeletal: no edema, pulses present Neurological: non-focal, moves all 4 limbs Lymphatic: no nodes Psychiatric: A&O x 3 Dx/Plan (1) Erosive esophagitis Code(s): K22.10 - ULCER OF ESOPHAGUS WITHOUT BLEEDING Status: Chronic (2) Pulmonary embolism, bilateral Code(s): I26.99 - OTHER PULMONARY EMBOLISM WITHOUT ACUTE COR PULMONALE Status: Resolved (3) Seizure Code(s): R56.9 - UNSPECIFIED CONVULSIONS Status: Chronic (4) Tachycardia Code(s): R00.0 - TACHYCARDIA, UNSPECIFIED Status: Acute (5) Alcohol abuse Code(s): F10.10 - ALCOHOL ABUSE, UNCOMPLICATED Status: Chronic (6) Anxiety Code(s): F41.9 - ANXIETY DISORDER, UNSPECIFIED Status: Chronic - Plan Plan: Patient is a 54 y/o male with a PMH significant for EtOH Abuse and SI who presents to the hospital following an episode of severe EtOH intoxication with SI. 1. EtOH Abuse -Last drink was reportedly at 1200 on 05/08 -Plasma EtOH: 530 on admission - trended down to < 80 on 05/09 -s/p Banana Bag and 1L NS in ED -Will continue IVF and Folate / Thiamine supplementation -ASE Protocol -CIWA: >8 on 05/10 -Diazepam 10 mg Q4H RAS -Lorazepam 2 mg Q1H PRN -Case Management: Consulted for EtOH Abuse resources and assistance with medication 2. Syncope, likely 2/2 EtOH Abuse rather than Seizure -Patient endorses a known Hx of Seizures since childhood but does not take Phenytoin as prescribed due to cost -Brain CT: NAF -Phenytoin Level: 1.8 > 3.4 -s/p Loading Dose of Phenytoin, will initiate 200 mg PO BID dosing this AM -Will recheck Phenytoin level as indicated -Seizure Precautions in place 3. Suicidal Ideation -No active plan, although notably distraught over recent break-up and current life situation -Will continue home medication regimen for Depression/Anxiety -Will consult [facility] this AM pending mental status 4. Grade D Severe Erosive Esophagitis -Per chart review, patient received an EGD on previous admission - DC'd on Protonix 20 mg PO BID -Will initiate Protonix 40mg PO BID 5. Hypokalemia -K: 3.9 on 05/10 -Will trend with AM Labs and replace as needed 6. Hypomagnesemia -M.5 on admission - trended up to 1.6 following administration of Mg 1 g PO in ED 7. Polysubstance Abuse -UDS: Benzos, Opiates although patient denied drug abuse prior to admission -Will mental health counselor on the importance of Polysubstance Abuse cessation 8. Anxiety -Will continue home medication regimen 9. HTN -Will continue home medication regimen 10. Hx of Pulmonary Embolism -DC'd on Eliquis after previous admission - administered Th. Lovenox as patient has been non-compliant -Case Management: Consulted for EtOH Abuse resources and assistance with medication Code: Full PCP: None Diet: Full Liquid - will advance as tolerated Activity: Ad warren w/ Sitter PPx: Protonix VTE PPx: Th. Lovenox Dispo: Patient is currently stable and admitted to the Telemetry Floor following an episode of severe EtOH Abuse and SI. Patient's Plasma EtOH has downtrended appropriately - will continue with ASE Protocol and Diazepam / Lorazepam as per above in order to treat for withdrawal. Will likely consult [facility] this AM for evaluation of SI. Case Management consulted to assist with obtaining home katie Alicea appreciated. Expected LOS < 48H. Addendum - Attending - Attending Attestation Date/Time: 05/10/20 8895 I personally evaluated the patient and discussed the management with Dr. Soto. I agree with the History, Examination, Assessment and Plan documented above with any addition or exceptions noted below. Restart anticoagulation. Patient has been counselled on the dangers of intoxication while on blood thinners. He has an incidental COVID positive result, but currently no symptoms of that infection. Continue to control alcohol withdrawal symptoms, starting Librium. Continue AED therapy for history of seizures. [facility] consult pending.
[2020-05-10] MEDS: Amlodipine 5 MG TAB PO SCH (08:19)
[2020-05-10] MEDS: Pantoprazole 40 MG VIAL IVP SCH ×2 (08:20→20:24)
[2020-05-10] MEDS: Potassium Chloride 10 MEQ TAB PO SCH (08:20)
[2020-05-10] MEDS: Enoxaparin Sodium 60 MG/0.6 ML SYRINGE SC SCH ×2 (08:20→20:24)
[2020-05-10] MEDS: chlordiazePOXIDE HCl 25 MG CAP PO SCH ×2 (13:23→20:23)
[2020-05-10] MEDS: Ondansetron PF 4 MG/2 ML Vial IVP PRN (15:55)
[2020-05-10] MEDS: Dicyclomine 10 MG CAP PO PRN (15:55)
[2020-05-10] MEDS: buPROPion HCl 100 MG TAB PO SCH (20:23)
[2020-05-10] MEDS: Promethazine HCl 12.5 MG in Sodium Chloride 0.9% 50 ML IVPB PRN (23:17)
[2020-05-11] MEDS: chlordiazePOXIDE HCl 25 MG CAP PO SCH ×4 (02:10→20:53)
[2020-05-11] MEDS: Dicyclomine 10 MG CAP PO PRN (02:10)
[2020-05-11 05:16] LABS: Band 1 % (5-11); Hemoglobin 12.1 g/dL (14.0-18.0); Lymphocytes 22 % (21-51); MDiff Complete? YES; Mean Corpuscular HGB CONC 31.7 g/dL (32.0-36.0); Mean Corpuscular Hemoglobin 33.1 pg (27.0-31.0); Mean Platelet Volume 9.1 fL (7.4-10.4); Monocytes 6 % (0-10); Neutrophil 71 % (42-75); Platelet Count 97 thou/uL (130-400); Platelet Morphology Comment Appears Decreased; RBC Distribution Width 17.1 % (11.5-14.5); Red Blood Cell (RBC) Count 3.65 mill/uL (4.70-6.10); White Blood Cell (WBC) Count 3.1 thou/uL (4.8-10.8)
[2020-05-11 05:28] LABS: ALT (SGPT) 21 U/L (8-55); AST (SGOT) 34 U/L (5-34); Albumin 3.3 g/dL (3.5-5.0); Alkaline Phosphatase 83 U/L (40-110); Anion Gap 16 mmol/L (10-20); BUN (Urea Nitrogen) Less than 4 mg/dL (8.4-25.7); Bilirubin, Total 0.9 mg/dL (0.2-1.2); Calc. Creatinine Clearance 109 mL/min (70-130); Calcium 8.4 mg/dL (7.8-10.44); Carbon Dioxide 21 mmol/L (22-29); Chloride 102 mmol/L (98-107); Estimated GFR-MDRD Greater than 90; Globulin 3.2 g/dL (2.4-3.5); Glucose 82 mg/dL (70-105); Potassium 3.6 mmol/L (3.5-5.1); Protein, Total 6.5 g/dL (6.0-8.3); Sodium 135 mmol/L (136-145)
--- NOTE | 2020-05-11 06:18 | PDOC.FM ---
- Subjective Subjective: Patient was resting comfortably in bed, watching TV, at the time of evaluation. Patient continued to endorse agitation, nausea and non-bloody vomiting. Patient also noticed that he had seen shadows moving in the corner of the room earlier in the evening. Sitter was present during the evaluation and did not endorse any episodes of SI/HI. - Objective Vital Signs & Weight: Vital Signs (12 hours) Temp Pulse Resp BP BP Pulse Ox 05/11/20 03:45 97.6 F 98 17 129/88 129/88 97 05/10/20 23:45 105 H 134/107 H 98 05/10/20 20:05 99 F 103 H 123/85 94 L Weight Admit Weight 57.516 kg Weight 60.419 kg I&O: 05/09/20 05/10/20 05/11/20 06:59 06:59 06:59 Intake Total 1220 3015 Output Total 3300 1500 Balance -2080 1515 Result Diagrams: 05/11/20 04:45 05/11/20 04:45 Phys Exam - Physical Examination Constitutional: NAD HEENT: moist MMs Neck: supple, full ROM Respiratory: no wheezing, no rales, no rhonchi, clear to auscultation bilateral Cardiovascular: RRR, no significant murmur, no rub Gastrointestinal: soft, non-tender, no distention, positive bowel sounds Musculoskeletal: no edema, pulses present Neurological: non-focal, moves all 4 limbs Psychiatric: A&O x 3 Deviation from normal: Mildly anxious, tremulous Skin: no rash Dx/Plan (1) Erosive esophagitis Code(s): K22.10 - ULCER OF ESOPHAGUS WITHOUT BLEEDING Status: Chronic (2) Pulmonary embolism, bilateral Code(s): I26.99 - OTHER PULMONARY EMBOLISM WITHOUT ACUTE COR PULMONALE Status: Resolved (3) Seizure Code(s): R56.9 - UNSPECIFIED CONVULSIONS Status: Chronic (4) Tachycardia Code(s): R00.0 - TACHYCARDIA, UNSPECIFIED Status: Acute (5) Alcohol abuse Code(s): F10.10 - ALCOHOL ABUSE, UNCOMPLICATED Status: Chronic (6) Anxiety Code(s): F41.9 - ANXIETY DISORDER, UNSPECIFIED Status: Chronic - Plan Plan: Patient is a 54 y/o male with a PMH significant for EtOH Abuse and SI who presents to the hospital following an episode of severe EtOH intoxication with SI. 1. EtOH Abuse -Last drink was reportedly at 1200 on 05/08 -Plasma EtOH: 530 on admission - trended down to < 80 on 05/09 -s/p Banana Bag and 1L NS in ED -Will continue IVF and Folate / Thiamine supplementation -ASE Protocol -CIWA: >8 on 05/13 - Hallucinations present -Diazepam 10 mg Q4H RAS - transitioned to Chlordiazepoxide 25 mg Q6H on 05/10 -Lorazepam 2 mg Q1H PRN -Will add Sucralfate and Tums to patient's medication regimen for mild ABD pain 2. Syncope, likely 2/2 EtOH Abuse rather than Seizure -Patient endorses a known Hx of Seizures since childhood but does not take Phenytoin as prescribed due to cost -Brain CT: NAF -Phenytoin Level: 1.8 > 3.4 > 1.8 -s/p Loading Dose of Phenytoin - will continue 200 mg PO BID -Will continue to recheck Phenytoin level as indicated -Seizure Precautions in place 3. Suicidal Ideation -No active plan, although notably distraught over recent break-up and current life situation -Will continue home medication regimen for Depression/Anxiety -[facility]: Consulted, discussed safety plan on 05/10 4. Grade D Severe Erosive Esophagitis -Per chart review, patient received an EGD on previous admission - DC'd on Protonix 20 mg PO BID -Will initiate Protonix 40mg PO BID -See above with respect to Sucralfate and Tums 5. Hypokalemia, resolved -K: < 3 on admission - 3.6 on 05/10 -Will trend with AM Labs and replace as needed 6. Hypomagnesemia, resolved -M.5 on admission - trended up to 1.6 following administration of Mg 1 g PO in ED 7. Polysubstance Abuse -UDS: Benzos, Opiates although patient denied drug abuse prior to admission -Will financial aid counselor on the importance of Polysubstance Abuse cessation 8. Anxiety -Will continue home medication regimen 9. HTN -Will continue home medication regimen 10. Hx of Pulmonary Embolism -DC'd on Eliquis after previous admission - administered Th. Lovenox as patient has been non-compliant -Case Management: Consulted for EtOH Abuse resources and assistance with medicat ion -Will initiate Eliquis 10 mg PO BID dosing this AM based on low Platelet Count and Case Management approval of medication assistance program Code: Full PCP: None Diet: Heart Healthy w/ Low Sodium Activity: Ad warren w/ Sitter GI PPx: Protonix 40 mg IV BID VTE PPx: Eliquis 10 mg PO BID Dispo: Patient is currently stable and admitted to the Telemetry Floor following an episode of severe EtOH Abuse and SI. Patient's Plasma EtOH has downtrended appropriately - will continue with ASE Protocol and Chlordiazepoxide / Lorazepam as per above in order to treat for withdrawal. [facility] discussed safety plan with patient on 05/10. Case Management confirmed approval of medication assistance program for Eliquis - will transition appropriately. Patient is near 72H since last EtOH intake with no documented signs of withdrawal - may be able to DC this afternoon. Expected LOS < 48H. Addendum - Attending - Attending Attestation Date/Time: 05/11/20 3163 I personally evaluated the patient and discussed the management with Dr. Soto. I agree with the History, Examination, Assessment and Plan documented above with any addition or exceptions noted below. Patient overall improved. Continues to have some mild EtOH withdrawal symptoms but improved with Librium. He continues to have abdominal pain associated with known history of erosive and alcoholic gastritis. Continuing symptomatic treatment. Hopeful to dc in the next day or so. [facility] has cleared for discharge.
[2020-05-11] MEDS ORDERED: Calcium Carbonate 500 MG ChewTAB PO PRN (06:54)
--- NOTE | 2020-05-11 06:59 | EKG ---
Test Reason : Blood Pressure : / mmHG Vent. Rate : 126 BPM Atrial Rate : 126 BPM P-R Int : 134 ms QRS Dur : 080 ms QT Int : 320 ms P-R-T Axes : 027 -08 033 degrees QTc Int : 463 ms Sinus tachycardia Low voltage QRS Poor anterior R wave progression When compared with ECG of 08-MAY-2020 23:50, (Unconfirmed) Vent. rate has increased BY [address] Cherry BRODERICK ([id number]) on 05/11/2020 6:59:19 AM Referred By: LIGHT *R Confirmed By:DR. Cherry BRODERICK
[2020-05-11] MEDS: Promethazine HCl 12.5 MG in Sodium Chloride 0.9% 50 ML IVPB PRN (07:25)
[2020-05-11] MEDS: Lactated Ringer's 1,000 ML IV SCH ×2 (07:30→18:00)
[2020-05-11] MEDS: Apixaban 5 MG TAB PO SCH ×2 (08:47→20:53)
[2020-05-11] MEDS: Potassium Chloride 10 MEQ TAB PO SCH (08:47)
[2020-05-11] MEDS: Sucralfate 1 GM TAB PO SCH ×5 (08:47→20:55)
[2020-05-11] MEDS: Multivitamin W/ Minerals 1 TAB PO SCH (08:47)
[2020-05-11] MEDS: Amlodipine 5 MG TAB PO SCH (08:48)
[2020-05-11] MEDS: Thiamine 100 MG TAB PO SCH (08:48)
[2020-05-11] MEDS: Folic Acid 1 MG TAB PO SCH (08:48)
[2020-05-11] MEDS: Lorazepam 2 MG/ML VIAL SLOW IVP PRN (08:48)
[2020-05-11] MEDS: Pantoprazole 40 MG VIAL IVP SCH ×2 (08:48→20:54)
[2020-05-11 10:34] VITALS: BMI 20.8
[2020-05-11] MEDS: buPROPion HCl 100 MG TAB PO SCH (20:54)
[2020-05-12] MEDS: chlordiazePOXIDE HCl 25 MG CAP PO SCH ×3 (03:20→14:00)
[2020-05-12] MEDS: Lactated Ringer's 1,000 ML IV SCH ×2 (03:20→14:28)
[2020-05-12] MEDS: Lorazepam 2 MG/ML VIAL SLOW IVP PRN (06:37)
--- NOTE | 2020-05-12 07:55 | PDOC.FM ---
- Subjective Subjective: Patient was sleeping comfortably with a sitter present at the time of evaluation but was easily arousable to name. Patient denied any acute overnight events, particularly with regard to chest pain, SOB, nausea, vomiting or dry heaves. Of note, patient also denied any recurrent visual or auditory hallucination. Neither the patient's sitter nor Nursing Staff endorsed any acute overnight events or recurrent episodes of SI/HI. - Objective Vital Signs & Weight: Vital Signs (12 hours) Temp Pulse Resp BP Pulse Ox 05/12/20 03:30 98.9 F 98 16 113/83 98 05/11/20 23:55 99 F 112 H 16 121/89 97 05/11/20 20:45 98 05/11/20 19:45 98.9 F 111 H 16 132/108 H 98 Weight Admit Weight 57.516 kg Weight 60.419 kg I&O: 05/11/20 05/12/20 05/13/20 06:59 06:59 06:59 Intake Total 3504.6 Output Total 1550 Balance 1954.6 Result Diagrams: 05/12/20 10:26 05/12/20 10:26 Phys Exam - Physical Examination Constitutional: NAD HEENT: sclera anicteric, oral pharynx no lesions Neck: supple, full ROM Respiratory: no wheezing, no rales, no rhonchi, clear to auscultation bilateral Cardiovascular: no significant murmur, no rub Tachycardia Gastrointestinal: soft, non-tender, no distention, positive bowel sounds Musculoskeletal: no edema, pulses present Neurological: non-focal, moves all 4 limbs Psychiatric: normal affect, A&O x 3 Deviation from normal: CIWA < 8 Skin: no rash Dx/Plan (1) Erosive esophagitis Code(s): K22.10 - ULCER OF ESOPHAGUS WITHOUT BLEEDING Status: Chronic (2) Pulmonary embolism, bilateral Code(s): I26.99 - OTHER PULMONARY EMBOLISM WITHOUT ACUTE COR PULMONALE Status: Resolved (3) Seizure Code(s): R56.9 - UNSPECIFIED CONVULSIONS Status: Chronic (4) Tachycardia Code(s): R00.0 - TACHYCARDIA, UNSPECIFIED Status: Acute (5) Alcohol abuse Code(s): F10.10 - ALCOHOL ABUSE, UNCOMPLICATED Status: Chronic (6) Anxiety Code(s): F41.9 - ANXIETY DISORDER, UNSPECIFIED Status: Chronic - Plan Plan: Patient is a 54 y/o male with a PMH significant for EtOH Abuse and SI who pr esents to the hospital following an episode of severe EtOH intoxication with SI. 1. EtOH Abuse -Last drink was reportedly at 1200 on 05/08 -Plasma EtOH: 530 on admission - trended down to < 80 on 05/09 -s/p Banana Bag and 1L NS in ED -Will continue IVF and Folate / Thiamine supplementation -ASE Protocol -CIWA: <8 on 05/12 - no hallucinations present -Diazepam 10 mg Q4H RAS - transitioned to Chlordiazepoxide 25 mg Q6H on 05/10 -Lorazepam 2 mg Q1H PRN -Sucralfate PRN and TUMS PRN for patient's mild ABD pain 2. Syncope, likely 2/2 EtOH Abuse rather than Seizure -Patient endorses a known Hx of Seizures since childhood but does not take Phenytoin as prescribed due to cost -Brain CT: NAF -Phenytoin Level: 1.8 > 3.4 > 1.8 - will encourage follow-up as an -s/p Loading Dose of Phenytoin - will continue 200 mg PO BID -Will continue to recheck Phenytoin level as indicated -Seizure Precautions in place 3. Suicidal Ideation -No active plan, although notably distraught over recent break-up and current life situation -Will continue home medication regimen for Depression/Anxiety -[facility]: Consulted, discussed safety plan on 05/10 - currently cleared for discharge 4. Grade D Severe Erosive Esophagitis -Per chart review, patient received an EGD on previous admission - DC'd on Protonix 20 mg PO BID -Will initiate Protonix 40mg PO BID -See above with respect to Sucralfate and Tums 5. Hypokalemia, resolved -K: < 3 on admission - 3.6 on 05/10 -Will trend with AM Labs and replace as needed 6. Hypomagnesemia, resolved -M.5 on admission - trended up to 1.6 following administration of Mg 1 g PO in ED -Will recheck this AM 7. Polysubstance Abuse -UDS: Benzos, Opiates although patient denied drug abuse prior to admission -Will careers counsellor on the importance of Polysubstance Abuse cessation 8. Anxiety -Will continue home medication regimen 9. HTN -Will continue home medication regimen 10. Hx of Pulmonary Embolism -DC'd on Eliquis after previous admission - administered Th. Lovenox as patient has been non-compliant -Case Management: Consulted for EtOH Abuse resources and assistance with medication -Will initiate Eliquis 10 mg PO BID dosing this AM based on low Platelet Count and Case Management approval of medication assistance program Code: Full PCP: None Diet: Heart Healthy w/ Low Sodium Activity: Ad warren w/ Sitter GI PPx: Protonix 40 mg IV BID VTE PPx: Eliquis 10 mg PO BID Dispo: Patient is currently stable and admitted to the Telemetry Floor following an episode of severe EtOH Abuse and SI. Patient's Plasma EtOH has downtrended appropriately - will continue with ASE Protocol and Chlordiazepoxide / Lorazepam as per above in order to treat for withdrawal. [facility] discussed safety plan with patient on 05/10. Case Management confirmed approval of medication assistance pro gram for Eliquis - will transition appropriately. Patient is near 96H since last EtOH intake. Patient was tachycardic in the 110s-120s beginning at 0400 but was otherwise asymptomatic. Will review pertinent lab results once EMR records are more readily available and monitor closely. Will likely plan for DC this afternoon. Expected LOS < 24H. Addendum - Attending - Attending Attestation Date/Time: 05/12/20 1126 I personally evaluated the patient and discussed the management with Dr. Soto. I agree with the History, Examination, Assessment and Plan documented above with any addition or exceptions noted below.
[2020-05-12 09:27] VITALS: TEMP 98.2
[2020-05-12] MEDS ORDERED: Lactated Ringer's 1,000 ML IV SCH (09:30)
[2020-05-12] MEDS: Folic Acid 1 MG TAB PO SCH (10:17)
[2020-05-12] MEDS: Thiamine 100 MG TAB PO SCH (10:17)
[2020-05-12] MEDS: Pantoprazole 40 MG VIAL IVP SCH (10:17)
[2020-05-12] MEDS: Apixaban 5 MG TAB PO SCH (10:18)
[2020-05-12] MEDS: Multivitamin W/ Minerals 1 TAB PO SCH (10:19)
[2020-05-12] MEDS: Potassium Chloride 10 MEQ TAB PO SCH (10:19)
[2020-05-12] MEDS: Sucralfate 1 GM TAB PO SCH ×3 (10:19→10:59)
[2020-05-12] MEDS: Amlodipine 5 MG TAB PO SCH (10:19)
[2020-05-12 10:48] LABS: #Basophils 0.1 thou/uL (0.0-0.2); #Eosinphils 0.1 thou/uL (0.0-0.7); #Lymphocytes 1.1 thou/uL (1.20-3.40); #Monocytes 0.3 thou/uL (0.11-0.59); #Neutrophils 4.3 thou/uL (1.40-6.50); %Basophils 0.9 % (0.0-1.0); %Eosinophils 2.4 % (0.0-10.0); %Lymphocytes 18.1 % (21.0-51.0); %Monocytes 4.9 % (0.0-10.0); %Neutrophils 73.7 % (42.0-75.0); Hemoglobin 12.2 g/dL (14.0-18.0); Mean Corpuscular HGB CONC 32.6 g/dL (32.0-36.0); Mean Corpuscular Hemoglobin 32.8 pg (27.0-31.0); Mean Platelet Volume 9.3 fL (7.4-10.4); Platelet Count 128 thou/uL (130-400); RBC Distribution Width 16.9 % (11.5-14.5); Red Blood Cell (RBC) Count 3.72 mill/uL (4.70-6.10); White Blood Cell (WBC) Count 5.9 thou/uL (4.8-10.8)
[2020-05-12 11:08] LABS: Magnesium 1.1 mg/dL (1.6-2.6)
[2020-05-12 11:13] LABS: ALT (SGPT) 18 U/L (8-55); AST (SGOT) 33 U/L (5-34); Albumin 3.1 g/dL (3.5-5.0); Alkaline Phosphatase 68 U/L (40-110); Anion Gap 12 mmol/L (10-20); BUN (Urea Nitrogen) Less than 4 mg/dL (8.4-25.7); Bilirubin, Total 0.6 mg/dL (0.2-1.2); Calc. Creatinine Clearance 100 mL/min (70-130); Calcium 8.6 mg/dL (7.8-10.44); Carbon Dioxide 24 mmol/L (22-29); Chloride 102 mmol/L (98-107); Estimated GFR-MDRD Greater than 90; Globulin 3.1 g/dL (2.4-3.5); Glucose 139 mg/dL (70-105); Potassium 3.2 mmol/L (3.5-5.1); Protein, Total 6.2 g/dL (6.0-8.3); Sodium 135 mmol/L (136-145)
[2020-05-12 11:18] LABS: Phosphorus 1.4 mg/dL (2.3-4.7)
[2020-05-12] MEDS ORDERED: PHOS-NAK 1 PKT PACK PO SCH (11:24)
[2020-05-12 12:22] VITALS: BP 124/83
--- NOTE | 2020-05-13 01:19 | DIS ---
DATE OF ADMISSION: 05/09/2020 DATE OF DISCHARGE: 05/12/2020 CONSULTS: [facility]. PROCEDURES: Brain CT scan performed on 05/09/2020, which demonstrated no acute intracranial abnormality. However, there was a stable mild right anterior frontal scalp swelling. PRIMARY DIAGNOSIS: Alcohol abuse with concurrent suicidal ideation. SECONDARY DIAGNOSES: 1. Syncope likely secondary to alcohol abuse. 2. Suicidal ideation. 3. Grade D severe erosive esophagitis. 4. Hypokalemia. 5. Hypomagnesemia. 6. Polysubstance abuse. 7. Anxiety. 8. Hypertension. 9. History of pulmonary embolism. DISCHARGE MEDICATIONS: 1. Amlodipine 5 mg p.o. daily. 2. Folic acid 1 mg p.o. daily. 3. Thiamin 100 mg p.o. daily. 4. Multivitamin 1 tab p.o. daily. 5. Apixaban 10 mg p.o. b.i.d. for 6 days followed by apixaban 5 mg p.o. b.i.d. 6. Phenytoin 200 mg p.o. b.i.d. Discontinued medications: Bupropion due to increased risk of seizure activity. HISTORY OF PRESENT ILLNESS AND HOSPITAL COURSE: The patient is a 54-year-old male with past medical history significant for previous suicide attempts, alcohol abuse, hypertension, bilateral pulmonary embolisms, seizure disorder, anxiety, and depression with multiple hospitalizations for suicide and alcohol intoxication in the past, who presented to the ER for evaluation of the same. The patient's questioning at the time of admission was limited secondary to the patient being severely intoxicated with a plasma alcohol level being measured at above 530. The patient states that the love his life broke up with him, so he drank 2 L of vodka over the past 1 to 2 days in order to try to end his life. The patient states that his last drink was at approximately 12:00 p.m. on May 08, 2020, but he passed out and thinks he may have hit his head. The patient also thinks he may have had a seizure, but he is unsure. The patient has not been taking his home phenytoin for seizure precaution because it is "too expensive." The patient had suicidal ideation but no plan. The patient endorsed feeling shaky and thought he was going into DTs and also endorse abdominal pain with nausea and vomiting, but denied chest pain, shortness of breath, fever, recent illness, or edema. In the emergency department, the patient was given a 1 L bolus of fluid and was administered a banana bag. The patient was subsequently put on suicide precautions as well as seizure precautions and transferred to telemetry floor for further observation. The patient was adequately hydrated and a regimen of a fixed-dosed benzodiazepines was initiated in order to avoid withdrawal until evaluation by [facility] could be initiated. Initially, the patient was on a fixed dose of diazepam. However, this was eventually transitioned to chlordiazepoxide with lorazepam p.r.n. for breakthrough agitation, anxiety, or severe withdrawal seizures. The patient did not have a seizure during hospitalization. However, the patient did go through withdrawal and was noted to have severe shakiness, diaphoresis, nausea, vomiting, and abdominal pain. Additionally, the patient endorsed cloudy mental cognition as well as alcoholic hallucinosis x1. However, this resolved prior to discharge. On the day of discharge, the patient's CIWA score was below 8, and he felt well and was in agreement with this plan of care moving forward, particular with regard to ongoing efforts and his alcohol abuse as well as followup required for treatment of his history of PEs and DVTs for which Case Management had been consulted in order to assist with apixaban medication assistance. Also, the patient was encouraged to follow up with his primary care provider in order to discuss ongoing use of phenytoin for seizure prophylaxis as his phenytoin level would need to be checked within 4 to 5 days. Additionally, the patient was also encouraged to follow up with his primary care physician in order to discuss his thyroid function, as his thyroid-stimulating hormone was found to be approximately 0.1715 during hospitalization. As the patient was stable and in agreement with the plan, he was subsequently prepped for discharge. Prior to discharge, patient's vital signs were recorded as temperature 98.2, heart rate 108, blood pressure 124/83, respirations 18 breaths per minute, and oxygen saturation 100% on room air. LABORATORY ANALYSIS: Revealed a sodium 135; potassium 3.2; chloride 102; carbon dioxide 24; BUN less than 4; creatinine 0.73; glucose 139; calcium 8.6; phosphorus 1.4, which was subsequently corrected with oral Fosamax; magnesium 1.1; total bilirubin 0.6; AST 33, down trended from a peak of 77; ALT 18, down trended from a peak of 33; alkaline and phosphatase 68. Creatine kinase 53. Troponin 0.026. Lipase 35. TSH 0.1715. Prolactin 9.07. DISPOSITION: Stable. DISCHARGE INSTRUCTIONS: 1. Location: Home. 2. Diet: Heart healthy. 3. Activity: No restrictions. 4. Followup: The patient was encouraged to follow up with his primary care provider in approximately 1 to 2 weeks in order to discuss multiple aspects of his most recent hospitalization, particularly with regard to his most recent hospitalization and ongoing efforts to end his ongoing alcohol abuse as well as ongoing medical management of seizure disorder, recurrent DVT, PE, and recheck of his thyroid function. The patient was also encouraged to follow up with Alcoholics Anonymous and multiple other group therapy sessions in the local area. The patient endorsed understanding of the plan and was acceptable and in agreement. He also was thankful for his care that he received during his hospitalization. Job ID: [id number]
--- NOTE | 2020-05-21 11:40 | EKG ---
Test Reason : WEAKNESS Blood Pressure : / mmHG Vent. Rate : 078 BPM Atrial Rate : 078 BPM P-R Int : 140 ms QRS Dur : 082 ms QT Int : 488 ms P-R-T Axes : 067 001 048 degrees QTc Int : 556 ms Normal sinus rhythm Prolonged QT Abnormal ECG Confirmed by SANFORD MAGALLON M.D. ([id number]), manuscript editor CASSI OSULLIVAN ([id number]) on 05/21/2020 11:40:32 AM Referred By: SHERITA Confirmed By:SANFORD MAGALLON M.D.
== END 2020-05-12 15:55 | disposition home or self-care (01) | DRG 896 ==
LOC: ERS 22:23 → 2NO 05-09 02:12 → 2SW 05-09 18:48
PROVIDERS: ADMIT Family Medicine; ATTEND Family Medicine
PROC: HZ2ZZZZ Detoxification Services for Substance Abuse Treatment (ICD-10-PCS; principal; 2020-05-09)
DX: F10.188 Alcohol abuse with other alcohol-induced disorder (principal); U07.1 COVID-19; R45.851 Suicidal ideations; K22.10 Ulcer of esophagus without bleeding; R44.3 Hallucinations, unspecified; F10.180 Alcohol abuse with alcohol-induced anxiety disorder; I10 Essential (primary) hypertension; G40.909 Epilepsy, unspecified, not intractable, without status epilepticus; F32.9 Major depressive disorder, single episode, unspecified; Y90.8 Blood alcohol level of 240 mg/100 ml or more; F19.10 Other psychoactive substance abuse, uncomplicated; E87.6 Hypokalemia; E83.42 Hypomagnesemia; Z96.611 Presence of right artificial shoulder joint; Z86.711 Personal history of pulmonary embolism; Z88.8 Allergy status to other drugs, medicaments and biological substances; Z90.49 Acquired absence of other specified parts of digestive tract
CPT/HCPCS: 36415; 36416; 36556; 36600; 70450; 80053; 80185; 80306; 80307; 81003; 81015; 82550; 83690; 83735; 84100; 84146; 84443; 84484; 85025; 87635; 90471; 90662; 93005; 93010; 96365; 96366; 99292; C9113; G0008; J1650; J2060; J2270; J2405; J2550; J3360; J3411; J3475; J3480; J3490; J7042; Q0162; Q2009; U0003

== ENCOUNTER 2020-05-14 05:33 | Inpatient (IN) | payer OTHER, SELFPAY ==
--- NOTE | 2020-05-14 07:30 | CT ---
CT abdomen and pelvis noncontrast HISTORY: Flank pain. COMPARISON: 04/28/2020. FINDINGS: Each renal collecting system, ureter, and urinary bladder are decompressed without stone ev ident. Lung bases are clear. Old left lateral rib fractures are again demonstrated. Small hiatal hernia. Div erticula arise from the colon without adjacent inflammation. Partial compression of the vertebral bodies at the T12, L2, and L5 levels is similar in appearance to the prior exam. Lack of contrast limits evaluation of the soft tissues. Prostate gland is enlarged. Liver is diffusel y hypodense. IMPRESSION : No evidence of urinary tract obstruction or calcification. Diverticulosis. No evidence of diverticulitis. Hepato-steatosis. Chronic-type findings are stable.
--- NOTE | 2020-05-14 07:32 | RAD ---
Chest one view HISTORY: Body aches. Vomiting. COVID positive. COMPARISON: 04/29/2020. FINDINGS: Cardiac silhouette is magnified by projection. Pulmonary vasculature is unremarkable. Mediastinum is midline. No lobar consolidation or evidence of pneumothorax. Old bilateral rib fractures right shoulder prosthesis partially visualized. Electronic device project s over the left chest. IMPRESSION : No active cardiopulmonary abnormalities are demonstrated.
[2020-05-14] MEDS ORDERED: Lorazepam 1 MG TAB ONE (08:16)
[2020-05-14] MEDS ORDERED: Promethazine HCl 25 MG/ML VIAL ONE (08:16)
[2020-05-14] MEDS ORDERED: Dexamethasone 10 MG/ML VIAL ONE (09:13)
[2020-05-14] MEDS ORDERED: Multivitamins, Adult 10 ML, Folic Acid 1 MG, Thiamine HCl 100 MG in Dextrose 5 %-0.45 %... IV SCH (10:00)
[2020-05-14 10:51] LABS: #Eosinphils 0.1 thou/uL (0.0-0.7); #Lymphocytes 0.5 thou/uL (1.20-3.40); #Monocytes 0.2 thou/uL (0.11-0.59); #Neutrophils 1.7 thou/uL (1.40-6.50); %Monocytes 6.6 % (0.0-10.0); %Neutrophils 69.3 % (42.0-75.0); Hemoglobin 11.3 g/dL (14.0-18.0); Mean Corpuscular HGB CONC 33.4 g/dL (32.0-36.0); Mean Corpuscular Hemoglobin 34.3 pg (27.0-31.0); Mean Platelet Volume 8.7 fL (7.4-10.4); Platelet Count 126 thou/uL (130-400); RBC Distribution Width 17.6 % (11.5-14.5); Red Blood Cell (RBC) Count 3.29 mill/uL (4.70-6.10); White Blood Cell (WBC) Count 2.5 thou/uL (4.8-10.8)
[2020-05-14 11:10] LABS: Acetaminophen Less than 6.0 mcg/mL (10.0-30.0); Alcohol 118 mg/dL (Less than 10); Salicylate Less than 8.0 mg/dL (15.0-30.0)
[2020-05-14 11:11] LABS: ALT (SGPT) 16 U/L (8-55); AST (SGOT) 25 U/L (5-34); Albumin 3.2 g/dL (3.5-5.0); Alkaline Phosphatase 62 U/L (40-110); Anion Gap 15 mmol/L (10-20); BUN (Urea Nitrogen) Less than 4 mg/dL (8.4-25.7); Bilirubin, Total 0.3 mg/dL (0.2-1.2); Calc. Creatinine Clearance 0 mL/min (70-130); Carbon Dioxide 23 mmol/L (22-29); Chloride 108 mmol/L (98-107); Estimated GFR-MDRD Greater than 90; Globulin 2.8 g/dL (2.4-3.5); Glucose 84 mg/dL (70-105); Lipase 28 U/L (8-78); Potassium 3.2 mmol/L (3.5-5.1); Sodium 143 mmol/L (136-145)
[2020-05-14 13:00] LABS: Bacteria/HPF None Seen HPF (None Seen); Bilirubin Negative (Negative); Blood, Urine Negative (Negative); Clarity Clear (Clear); Glucose, Urine (Dipstick) Normal (Negative); Ketone, Urine Negative (Negative); Leukocyte Negative Leu/uL (Negative); Nitrite Negative (Negative); Protein, Urine (Dipstick) 30 mg/dL (Neg-Trace); RBC/HPF 0-3 HPF (0-3); Specific Gravity, Urine 1.017 (1.002-1.036); Squamous Epithelial 0-3 HPF (0-3); Urobilinogen Normal mg/dL (Less than 2); WBC/HPF 0-3 HPF (0-3)
[2020-05-14 13:02] LABS: Amphetamine Not Detected (NotDetected); Barbiturates Screen Detected (NotDetected); Benzodiazepine Screen Detected (NotDetected); Cocaine Metabolite Screen Not Detected (NotDetected); Medtox Control Line Valid? VALID (VALID); Medtox Reader # READER 1; Methadone Not Detected (NotDetected); Methamphetamine Not Detected (NotDetected); Opiate Screen Not Detected (NotDetected); Oxycodone Screen Not Detected (NotDetected); Phencyclidine (PCP) Not Detected (NotDetected); THC/Cannabinoid Screen Not Detected (NotDetected); Tricyclic Screen Not Detected (NotDetected)
--- NOTE | 2020-05-14 13:30 | PDOC.FPRHP ---
- History of Present Illness Chief Complaint: passing out History of Present Illness: 54 yo M with PMH of HTN, alcohol abuse, b/l pulmonary embolism, seizure disorder, anxiety and depression presents with nausea and abdominal discomfort. He reports this is the same thing that led to his hospitalization last time. He felt dizzy in the parking lot and passed out. He says his landlord called EMS though then he stated he remembers waking up with EMS. Says he drank half a pint of vodka this morning. He reports epigastric abdominal pain, nausea without vomiting. Reports up to 4 loose stool daily. No hematemesis, hematochezia, melena. His appetite is decreased. Denies fever, cough. Has some nasal congestion and feeling SOB. He reports only taking elequis and dilantin at home. ED Course: 1L, banana bag, phenergan, ativan 2mg, decadron 10 - Allergies/Adverse Reactions Allergies Allergy/AdvReac Type Severity Reaction Status Date / Time acetaminophen [From [place]] Allergy Verified 05/14/20 13:44 haloperidol [From Haldol] Allergy Verified 05/14/20 13:44 hydrocodone [From [place]] Allergy Verified 05/14/20 13:44 ondansetron [From Zofran] Allergy Verified 05/14/20 13:45 - Home Medications Medication Instructions Recorded Confirmed Type Phenytoin Sodium Extended 200 mg PO BID #60 cap 05/02/20 05/14/20 Rx [Dilantin] Amlodipine [Norvasc] 5 mg PO DAILY 30 Days #30 tab 05/12/20 05/14/20 Rx Apixaban [Eliquis] 5 mg PO BID 30 Days #60 tablet 05/12/20 05/14/20 Rx Apixaban [Eliquis] 10 mg PO BID 6 Days #11 tab 05/12/20 05/14/20 Rx Folic Acid [Folvite] 1 mg PO DAILY 30 Days #30 tab 05/12/20 05/14/20 Rx Multivitamin W/ Minerals 1 tab PO DAILY 30 Days #30 tab 05/12/20 05/14/20 Rx [Theragran M] Thiamine 100 mg PO DAILY 30 Days #30 tab 05/12/20 05/14/20 Rx - History PMHx: seizures, arrhythmia with loop recorder, ETOH abuse with previous DTs, anxiety, Grade D severe erosive esophagitis, HTN, PE PSHx: R shoulder hemiarthroplasty, appendectomy FHx: reports uncle with unknown hereditary medical condition Social: daily etoh use 5-6 beers per day, more on weekends; dipped tobacco for >10 years; denies drug use though known to have polysubstance abuse - Review of Systems General: reports: weight/appetite/sleep changes (decreased appetite). denies: fever/chills Eyes: denies: vision changes ENT: reports: nasal congestion Respiratory: reports: shortness of breath. denies: cough Cardiovascular: denies: chest pain, palpitation, edema Gastrointestinal: reports: nausea, diarrhea, abdominal pain. denies: vomiting, GI bleeding Genitourinary: denies: dysuria Skin: denies: rashes Musculoskeletal: denies: tenderness, swelling Neurological: reports: syncope. denies: seizure - Vital signs BP: 113/77 HR: 94 RR: 16 Tmax: 98.4 Pox: 100% on RA - Physical Exam Constitutional: NAD (laying in bed) HEENT: normocephalic and atraumatic, EOMI, MMM, oropharynx clear Neck: supple Chest: no-tender to palpation Heart: RRR, normal S1/S2, no edema Lungs: CTAB, no respiratory distress, no wheezing Abdomen: soft, bowel sounds present, no masses/distention (reports epigastric tenderness, though does not complain with distracted deep palpation) Musculoskeletal: normal structure, normal tone Skin: no rash/lesions Heme/Lymphatic: no unusual bruising or bleeding FMR H&P: Results - Labs Result Diagrams: 05/14/20 10:28 05/14/20 10:28 Lab results: WBC 2.5 thou/uL (4.8-10.8) L 05/14/20 10: Hgb 11.3 g/dL (14.0-18.0) L 05/14/20 10: Hct 33.8 % (42.0-52.0) L 05/14/20 10:28 MCV 103.0 fL (78.0-98.0) H 05/14/20 10:28 Plt Count 126 thou/uL (130-400) L 05/14/20 10: Neutrophils % 69.3 % (42.0-75.0) 05/14/20 10:28 Sodium 143 mmol/L (136-145) 05/14/20 10:28 Potassium 3.2 mmol/L (3.5-5.1) L 05/14/20 10:28 Chloride 108 mmol/L (98-107) H 05/14/20 10:28 Carbon Dioxide 23 mmol/L (22-29) 05/14/20 10:28 BUN Less than 4 mg/dL (8.4-25.7) L 05/14/20 10:28 Creatinine 0.66 mg/dL (0.7-1.3) L 05/14/20 10:28 Glucose 84 mg/dL (70-105) 05/14/20 10:28 Calcium 8.0 mg/dL (7.8-10.44) 05/14/20 10:28 Total Bilirubin 0.3 mg/dL (0.2-1.2) 05/14/20 10: AST 25 U/L (5-34) 05/14/20 10:28 ALT 16 U/L (8-55) 05/14/20 10:28 Alkaline Phosphatase 62 U/L (40-110) 05/14/20 10: Ammonia 16 umol/L (18-72) L 05/14/20 10:28 Creatine Kinase 28 U/L (30-200) L 05/14/20 10:28 Serum Total Protein 6.0 g/dL (6.0-8.3) 05/14/20 10:28 Albumin 3.2 g/dL (3.5-5.0) L 05/14/20 10:28 Lipase 28 U/L (8-78) 05/14/20 10:28 Urine Ketones Negative mg/dL (Negative) 05/14/20 12:38 Urine Blood Negative (Negative) 05/14/20 12:38 Urine Nitrite Negative (Negative) 05/14/20 12:38 Ur Leukocyte Esterase Negative Celso/uL (Negative) 05/14/20 12:38 Urine RBC 0-3 HPF (0-3) 05/14/20 12:38 Urine WBC 0-3 HPF (0-3) 05/14/20 12:38 Ur Squamous Epith Cells 0-3 HPF (0-3) 05/14/20 12:38 Urine Bacteria None Seen HPF (None Seen) 05/14/20 12:38 FMR H&P: A/P - Plan 54 y/o male with a PMH significant for EtOH Abuse and SI who presents to the hospital following an episode of severe EtOH intoxication with SI. EtOH Abuse -Last drink this am, 1/2 pint vodka -Plasma EtOH: 118 -s/p 1L NS in ED, banana bag running -Continue home folate, thiamine supplements -ASE Protocol -Lorazepam 2 mg Q1H PRN, If begins to withdraw, consider adding Chlordiazepoxide 25 mg Q6H Grade D Severe Erosive Esophagitis - likely contributory to patient's mild abdominal pain - prior admission had GI bleed and EGD documenting these findings - Protonix PO BID Syncope, likely 2/2 EtOH Abuse rather than Seizure - patient reports taking dilantin at home, will recheck level to ensure therapeutic -Seizure Precautions COVID+ - on precautions - + serology 05/09, asymptomatic Hypokalemia -K+ 3.2 -Replace and recheck in am - will check mag and phos as well, pending Polysubstance Abuse -UDS: Benzos, barbituates -Patient has been counseling multiple times on cessation Anxiety -previously on wellbutrin, though this was discontinued on prior admission to avoid lowering seizure threshold -hydroxyzine prn anxiety HTN -continue home amlodipine Hx of Pulmonary Embolism - previously organized medication assistance program for this. Patient reports compliance with medication -Eliquis 10 mg PO BID until 05/17 then 5mg BID Code: Full PCP: None Diet: HH GI PPx: Protonix BID VTE PPx: Home eliquis Attending: Kory PCP: none, admitted as bounceback Dispo:admit for observation, expected LOS < 48H Addendum - Attending - Attending Attestation Date/Time: 05/14/20 0222 I personally evaluated the patient and discussed the management with Dr. Singh. I agree with the History, Examination, Assessment and Plan documented above with any addition or exceptions noted below. The patient admits for syncope likely 2/2 alcohol abuse. ASE protocol in place, will restart PPI for erosive esophagitis. Trend labs. From a covid standpoint, pt is in no respiratory distress. Will monitor on telemetry.
[2020-05-14 13:41] VITALS: BMI 20.1
[2020-05-14] MEDS ORDERED: Potassium Chloride 20 MEQ TAB PO SCH (13:45)
[2020-05-14] MEDS ORDERED: Promethazine HCl 25 MG/ML VIAL IM/IV PRN (13:46)
[2020-05-14] MEDS ORDERED: hydrOXYzine 25 MG TAB PO PRN (13:55)
[2020-05-14] MEDS ORDERED: Metoclopramide HCl 10 MG/2 ML VIAL IVP PRN (16:03)
[2020-05-14] MEDS ORDERED: Potassium Chloride 40 MEQ in Premix Bag 1 BAG IVPB SCH (16:15)
[2020-05-14] MEDS ORDERED: Pantoprazole 40 MG VIAL IVP SCH (16:15)
[2020-05-14] MEDS: Apixaban 5 MG TAB PO SCH (21:14)
[2020-05-14] MEDS ORDERED: Ibuprofen 600 MG TAB PO PRN (21:50)
[2020-05-14] MEDS ORDERED: Lidocaine 2% Viscous Solution 10 ML, Aluminum & Magnesium Hydroxide 30 ML SSW SCH (22:00)
[2020-05-14] MEDS: Lorazepam 2 MG/ML VIAL SLOW IVP PRN (22:13)
--- NOTE | 2020-05-15 06:11 | PDOC.FM ---
- Subjective Subjective: Mr. Erwin reports feeling very well this morning and would like to go home. He says abdominal pain, nausea has completely resolved. He does not feel he is withdrawing from alcohol. He says that there is a lot going on at home that is causing him anxiety which is what he attributes his pulse to. He says that he feels his anxiety is overall better than it has been in the past though. - Objective Vital Signs & Weight: Vital Signs (12 hours) Temp Pulse Resp BP BP Pulse Ox 05/15/20 05:30 98.8 F 115 H 20 127/92 H 97 05/15/20 00:35 98.8 F 122 H 20 129/94 H 96 05/14/20 21:15 98 05/14/20 19:47 98.7 F 103 H 16 127/89 98 Weight Weight 58.332 kg I&O: 05/13/20 05/14/20 05/15/20 06:59 06:59 06:59 Intake Total 1817.5 Output Total 850 Balance 967.5 Result Diagrams: 05/14/20 10:28 05/15/20 06:41 Phys Exam - Physical Examination Constitutional: NAD Respiratory: clear to auscultation bilateral Cardiovascular: no significant murmur (tachycardia) Gastrointestinal: soft, non-tender, positive bowel sounds Musculoskeletal: no edema Neurological: non-focal Psychiatric: normal affect Skin: normal turgor Dx/Plan - Plan Plan: 54 y/o male with a PMH significant for EtOH Abuse and SI who presents to the hospital following an episode of severe EtOH intoxication with SI. EtOH Abuse -Last drink 05/14, 1/2 pint vodka -EtOH on admission: 118 -s/p 1L NS in ED, banana bag -Continue home folate, thiamine supplements -ASE Protocol -Lorazepam 2 mg Q1H PRN Grade D Severe Erosive Esophagitis - likely contributory to patient's mild abdominal pain - prior admission had GI bleed and EGD documenting these findings - Protonix PO BID Syncope, likely 2/2 EtOH Abuse rather than Seizure - subtherapeutic on admission, patient says he missed multiple doses prior to admission -Seizure Precautions COVID+ - on precautions - + serology 05/09, asymptomatic Hypokalemia -K+ 3.2 on admission, replaced QTc prolongation - >500 on EKG - avoid prolonging meds, on telemetry Polysubstance Abuse -UDS: Benzos, barbituates -Patient has been counseling multiple times on cessation Anxiety -previously on wellbutrin, though this was discontinued on prior admission to avoid lowering seizure threshold -hydroxyzine prn anxiety HTN -continue home amlodipine Hx of Pulmonary Embolism - previously organized medication assistance program for this. Patient reports compliance with medication -Eliquis 10 mg PO BID until 05/17 then 5mg BID Code: Full PCP: None Diet: HH GI PPx: Protonix BID VTE PPx: Home eliquis Attending: Kory PCP: none, admitted as [facility] Dispo:monitor pulse today but otherwise plan for d/c this afternoon Addendum - Attending - Attending Attestation Date/Time: 05/15/20 [id number] I personally evaluated the patient and discussed the management with Dr. Singh. I agree with the History, Examination, Assessment and Plan documented above with any addition or exceptions noted below. The patient is feeling much better and asks to go home. He states his nausea resolved with the medications we gave him. He doesn't feel like he is withdrawing and thanked us for helping him feel better. Dilantin is subtherapetuic. Will check with pt to see if he has been taking his medication. Pt will need to go home on PPI.
[2020-05-15 07:11] LABS: Anion Gap 12 mmol/L (10-20); BUN (Urea Nitrogen) 5 mg/dL (8.4-25.7); Calc. Creatinine Clearance 101 mL/min (70-130); Calcium 8.1 mg/dL (7.8-10.44); Carbon Dioxide 21 mmol/L (22-29); Chloride 107 mmol/L (98-107); Estimated GFR-MDRD Greater than 90; Glucose 84 mg/dL (70-105); Phosphorus 2.6 mg/dL (2.3-4.7); Potassium 3.1 mmol/L (3.5-5.1); Sodium 137 mmol/L (136-145)
[2020-05-15] MEDS: Lorazepam 2 MG/ML VIAL SLOW IVP PRN (08:31)
[2020-05-15] MEDS: Calcium Carbonate 500 MG ChewTAB PO PRN ×2 (08:31→22:13)
[2020-05-15] MEDS: Multivitamin W/ Minerals 1 TAB PO SCH (08:33)
[2020-05-15] MEDS: Apixaban 5 MG TAB PO SCH ×2 (08:33→22:13)
[2020-05-15] MEDS: Thiamine 100 MG TAB PO SCH (08:33)
[2020-05-15] MEDS: Folic Acid 1 MG TAB PO SCH (08:33)
[2020-05-15] MEDS: Amlodipine 5 MG TAB PO SCH (08:33)
[2020-05-15] MEDS ORDERED: Magnesium 2 GM/50 ML 2 GM in Premix Bag 1 BAG IVPB SCH (13:45)
[2020-05-15] MEDS ORDERED: Potassium Chloride 40 MEQ in Sodium Chloride 0.9% 250 ML 250 ML IVPB SCH (13:45)
[2020-05-15] MEDS ORDERED: Lorazepam 1 MG TAB PO PRN (22:53)
[2020-05-15] MEDS ORDERED: Lidocaine 2% Viscous Solution 10 ML, Aluminum & Magnesium Hydroxide 30 ML SSW SCH (23:00)
--- NOTE | 2020-05-16 05:31 | PDOC.FM ---
- Subjective Subjective: Patient was resting comfortably in bed at the time of evaluation, eating his breakfast. Patient denied any acute overnight events, particularly with regard to chest pain, SOB, N/V, ABD pain, tremor, agitation or hallucinations. - Objective Vital Signs & Weight: Vital Signs (12 hours) Temp Pulse Resp BP Pulse Ox 05/16/20 04:35 98.2 F 70 16 120/70 98 05/15/20 23:40 98.8 F 100 16 147/106 H 94 L 05/15/20 20:25 97 Weight Weight 58.332 kg I&O: 05/14/20 05/15/20 05/16/20 06:59 06:59 06:59 Intake Total 1817.5 Output Total 850 Balance 967.5 Result Diagrams: 05/14/20 10:28 05/15/20 06:41 Phys Exam - Physical Examination Constitutional: NAD HEENT: moist MMs, sclera anicteric, oral pharynx no lesions Neck: supple, full ROM Respiratory: no wheezing, no rales, no rhonchi, clear to auscultation bilateral Cardiovascular: no significant murmur, no rub Mild tachycardia, consistent with previous exams Gastrointestinal: soft, non-tender, no distention, positive bowel sounds Musculoskeletal: no edema, pulses present Neurological: non-focal, moves all 4 limbs Lymphatic: no nodes Psychiatric: normal affect, A&O x 3 Deviation from normal: CIWA < 8 Skin: no rash Dx/Plan (1) Hypokalemia Code(s): E87.6 - HYPOKALEMIA Status: Acute (2) Alcohol abuse Code(s): F10.10 - ALCOHOL ABUSE, UNCOMPLICATED Status: Chronic (3) Anemia Code(s): D64.9 - ANEMIA, UNSPECIFIED Status: Chronic (4) Anxiety Code(s): F41.9 - ANXIETY DISORDER, UNSPECIFIED Status: Chronic (5) Erosive esophagitis Code(s): K22.10 - ULCER OF ESOPHAGUS WITHOUT BLEEDING Status: Chronic (6) Seizure Code(s): R56.9 - UNSPECIFIED CONVULSIONS Status: Chronic (7) Pulmonary embolism, bilateral Code(s): I26.99 - OTHER PULMONARY EMBOLISM WITHOUT ACUTE COR PULMONALE Status: Resolved - Plan Plan: Patient is a 54 y/o male with a PMH significant for EtOH Abuse and SI who was admitted to the hospital as a bounceback following an episode of severe EtOH Intoxication. 1. EtOH Abuse -Past states that he drank 1/2 Pint of Vodka on 05/14 -EtOH: 118 on admission - no repeat check indicated -s/p 1L NS, Banana Bag in ED -Previously started on Folate, Thiamine during last hospitalization - will continue -ASE Protocol -Lorazepam 2 mg Q1H PRN -CIWA < 8 -Patient states that he does not feel like he is going through withdrawal 2. Grade D Severe Erosive Esophagitis -Likely contributory to patient's mild ABD Pain -Prior admission had GI Bleed and EGD documenting these findings -Will administer Protonix PO BID during hospitalization and update patient's home meds accordingly 3. Syncope, likely 2/2 EtOH Abuse rather than Seizure -Phenytoin levels were found to be sub-therapeutic during last hospitalization and on admission, patient states that he missed multiple doses -Seizure Precautions -Will avoid medications that lower Seizure Threshold 4. COVID(+) -Patient was incidentally found to be COVID(+) during last admission - currently on precautions -Asymptomatic 5. Hypokalemia -K: 3.2 on admission - s/p replacement -Will trend AM Labs and supplement as needed 6. QTc Prolongation ->500 on EKG -Will avoid QTc prolonging meds and monitor on Telemetry Floor 7. Polysubstance Abuse -UDS: Benzos, Barbituates - positive for Benzos, Cocaine on previous admission -Patient has been counseled multiple times on cessation 8. Anxiety -Previously on Buproprion -discontinued during prior admission due to risk of lowering Seizure Threshold -Hydroxyzine 25 mg PO Q6H PRN 9. HTN -BPs have been within acceptable range since admission -Will continue patient's home Amlodipine regimen 10. Hx of Pulmonary Embolism -CM previously organized medication assistance program for this during previous admission - patient endorses compliance -Apixaban 10 mg PO BID until 05/17 with subsequent transition to 5mg BID Code: Full PCP: CC Diet: Heart Healthy Activity: No Restrictions VTE PPx: Home Apixaban GI PPx: Protonix Dispo: Patient is currently stable and admitted to the Telemetry Floor for observation following another episode of EtOH Intoxication and ABD Pain. Will continue to stress the importance of EtOH Abuse cessation and medication compliance during hospitalization and will ensure that medication list is optimized prior to likely DC this afternoon. Expected LOS < 24H.
[2020-05-16] MEDS ORDERED: Potassium Chloride 20 MEQ TAB PO SCH (08:00)
[2020-05-16 08:14] VITALS: TEMP 99.1
[2020-05-16] MEDS: Apixaban 5 MG TAB PO SCH (08:15)
[2020-05-16] MEDS: Thiamine 100 MG TAB PO SCH (08:15)
[2020-05-16] MEDS: Folic Acid 1 MG TAB PO SCH (08:15)
[2020-05-16] MEDS: Amlodipine 5 MG TAB PO SCH (08:15)
[2020-05-16] MEDS: Multivitamin W/ Minerals 1 TAB PO SCH (08:15)
[2020-05-16 12:46] VITALS: BP 109/82
--- NOTE | 2020-05-16 13:49 | PRG ---
DATE OF SERVICE: 05/16/2020 Mr. Erwin is sitting quietly in bed, in no distress. He is not overly anxious or tremulous. He states he does not feel like he is going through any withdrawal symptoms. We can likely discharge him later this afternoon. Job ID: [id number]
--- NOTE | 2020-05-17 14:09 | DIS ---
DATE OF ADMISSION: 05/14/2020 DATE OF DISCHARGE: 05/16/2020 RESIDENT: Jose Armando Soto M.D. ADMITTING ATTENDING: Luz Horn M.D. DISCHARGE ATTENDING: Lm Faye M.D. CONSULTS: None. PROCEDURES: Abdomen and pelvis CT scan performed on 05/14/2020, which demonstrated no evidence of urinary tract obstruction or calcification, diverticulosis without evidence of diverticulitis, hepatic steatosis and chronic type findings, all of which were stable. Chest x-ray performed on 05/14/2020, which demonstrated no active cardiopulmonary abnormalities. PRIMARY DIAGNOSIS: Acute alcohol intoxication. SECONDARY DIAGNOSES: 1. Erosive esophagitis. 2. Possible syncope likely secondary to alcohol abuse rather than seizures. 3. COVID positive. 4. Hypokalemia. 5. QTc prolongation. 6. Polysubstance abuse. 7. Anxiety. 8. History of suicidal ideation and attempt. 9. Hypertension. 10. History of pulmonary embolism. DISCHARGE MEDICATIONS: 1. Amlodipine 5 mg p.o. daily. 2. Apixaban 10 mg p.o. b.i.d. to be finished on 05/17/2020, followed by apixaban 5 mg p.o. b.i.d. daily. 3. Folic acid 1 mg p.o. daily. 4. Multivitamin one tablet daily. 5. Pantoprazole 20 mg p.o. b.i.d. 6. Phenytoin 200 mg p.o. b.i.d. 7. Thiamine 100 mg p.o. daily. DISCONTINUED MEDICATIONS: None. HISTORY OF PRESENT ILLNESS AND HOSPITAL COURSE: The patient is a 54-year-old male with a history most notable for pulmonary embolism as well as alcohol abuse, polysubstance abuse, history of suicidal ideation and attempts, and history of seizure disorder, who presents to the emergency room with nausea and abdominal discomfort. The patient reports this is the same type of presentation, for which he initially presented to the hospital last week. The patient states that he felt dizzy in the parking lot and may have passed out, although he does admit that he had been drinking heavily at that time. The patient states that his landlord saw him fall and called EMS. The patient states that he did not lose consciousness and was lucid during transport by EMS. The patient states he drank approximately half a pint of vodka in the morning, although he notes this is not a large amount of vodka. The patient reports epigastric abdominal pain, nausea without vomiting. The patient reports up to 4 loose stools per day, but denies hematemesis, hematochezia, melena. He notes that his appetite is decreased, but he denies fever and cough. The patient endorses nasal congestion and mild feelings of shortness of breath. The patient states that he has been taking his Eliquis and Dilantin at home, but no other medications from his previous hospitalization. In the emergency room, the patient was given 1 L fluid bolus as well as a banana bag, Phenergan, lorazepam 2 mg and dexamethasone 10 mg. The patient was subsequently stabilized and transferred to the telemetry unit for ongoing evaluation. Due to the patient's long QTc interval that was noted during his last hospitalization, continuous cardiac monitoring was initiated. This in addition to his history of seizures and history of severe alcohol abuse with possible withdrawal indicated higher level of observation. The patient subsequently stabilized and was restarted on the medication regimen that had begun during his previous hospitalization. He denied any suicidal ideation or intent at the time and as such, [facility] was not consulted during this hospitalization. Incidentally, the patient was found to be COVID positive on his last hospitalization. However, he continues to be asymptomatic. His main concern right now stems from his ongoing alcohol and polysubstance abuse. As the patient's abdominal pain resolved, no additional testing was indicated other than that listed elsewhere in this document. The patient was counseled strongly that he would need to resume his medication regimen as listed during his previous hospitalization and establish care with a primary care physician for ongoing medical management of his multiple chronic conditions, most notably his need for long-term anticoagulation due to history of pulmonary emboli and ongoing alcohol, tobacco, and polysubstance abuse. Prior to discharge, patient's vital signs were noted to be temperature 99.1, pulse 109, blood pressure 109/82, respirations 17 breaths per minute, oxygen saturation 94% on room air. LABORATORY ANALYSIS: Revealed white blood cell count of 2.5, hemoglobin 11.3, hematocrit 33.8, platelet count 126. Chem panel revealed sodium of 137, potassium 3.1, chloride 107, carbon dioxide 21, BUN 5, creatinine 0.7, glucose 84, calcium 8.1, phosphorus 2.6, magnesium 1, total bilirubin 0.3, AST 25, ALT 16, alkaline phosphatase 62, ammonia 16, creatine kinase 28. Troponin less than 0.01. Lipase 28. TSH is 0.345. DISPOSITION: Stable. DISCHARGE INSTRUCTIONS: 1. Location: Home. 2. Diet: Heart healthy. 3. Activity: No restrictions. 4. Followup: The patient was encouraged to follow up with his primary care provider in 1 to 2 weeks after establishing care in order to discuss his most recent hospitalization as well as ongoing medical management of his many chronic medical conditions to include history of pulmonary emboli, alcohol abuse, tobacco abuse, and polysubstance abuse. The patient was counseled specifically on his need to discontinue his drinking as this is the most likely etiology for his continued abdominal pain. The patient was also encouraged to follow up with his primary care provider in order to re-evaluate his thyroid-stimulating hormone as it was found to be abnormally low during this hospitalization. The patient was made aware of multiple resources within the [facility] that cater to individuals who suffer from alcohol and polysubstance abuse disorder. The patient expressed understanding of the need to seek treatment and curtail his ongoing alcohol and polysubstance abuse. Job ID: [id number]
== END 2020-05-16 13:58 | disposition home or self-care (01) | DRG 896 ==
LOC: ERS 05:33 → 2SW 11:28
PROVIDERS: ADMIT Student in an Organized Health Care Education/Training Program; ATTEND Student in an Organized Health Care Education/Training Program
PROC: HZ2ZZZZ Detoxification Services for Substance Abuse Treatment (ICD-10-PCS; principal; 2020-05-14)
PROC: 8E0ZXY6 Isolation (ICD-10-PCS; 2020-05-14)
DX: F10.129 Alcohol abuse with intoxication, unspecified (principal); U07.1 COVID-19; K22.10 Ulcer of esophagus without bleeding; R45.851 Suicidal ideations; F20.9 Schizophrenia, unspecified; F10.139 Alcohol abuse with withdrawal, unspecified; Y90.5 Blood alcohol level of 100-119 mg/100 ml; I10 Essential (primary) hypertension; Z96.611 Presence of right artificial shoulder joint; F41.9 Anxiety disorder, unspecified; E87.6 Hypokalemia; I45.81 Long QT syndrome; F19.10 Other psychoactive substance abuse, uncomplicated; Z88.8 Allergy status to other drugs, medicaments and biological substances; Z86.711 Personal history of pulmonary embolism; Z79.01 Long term (current) use of anticoagulants; Z90.49 Acquired absence of other specified parts of digestive tract
CPT/HCPCS: 36415; 71045; 74176; 80048; 80053; 80185; 80306; 80307; 81003; 81015; 82140; 82550; 83690; 83735; 84100; 84443; 84484; 85025; 93005; C9113; J1100; J2060; J2550; J2765; J3411; J3475; J3480; J7042; J7050

== ENCOUNTER 2020-05-25 10:09 | Inpatient (IN) | payer OTHER, SELFPAY ==
[2020-05-25 11:29] LABS: INR-International Normal Ratio 1.2; Prothrombin Time 15.5 sec (12.0-14.7)
[2020-05-25 11:41] LABS: ALT (SGPT) 29 U/L (8-55); AST (SGOT) 36 U/L (5-34); Alkaline Phosphatase 130 U/L (40-110); Anion Gap 21 mmol/L (10-20); BUN (Urea Nitrogen) Less than 4 mg/dL (8.4-25.7); Bilirubin, Total 0.6 mg/dL (0.2-1.2); Calc. Creatinine Clearance 0 mL/min (70-130); Calcium 8.4 mg/dL (7.8-10.44); Carbon Dioxide 17 mmol/L (22-29); Chloride 108 mmol/L (98-107); Estimated GFR-MDRD Greater than 90; Globulin 4.2 g/dL (2.4-3.5); Glucose 115 mg/dL (70-105); Lipase 27 U/L (8-78); Potassium 4.3 mmol/L (3.5-5.1); Protein, Total 8.2 g/dL (6.0-8.3); Sodium 142 mmol/L (136-145)
[2020-05-25 11:42] LABS: Acetaminophen Less than 6.0 mcg/mL (10.0-30.0); Alcohol 282 mg/dL (Less than 10); Salicylate Less than 8.0 mg/dL (15.0-30.0)
[2020-05-25 12:13] LABS: CKMB 2.7 ng/mL (0-6.6)
[2020-05-25] MEDS ORDERED: Fentanyl 100 MCG/2 ML VIAL ONE (12:57)
[2020-05-25 13:03] LABS: Hemoglobin 14.8 g/dL (14.0-18.0); Mean Corpuscular HGB CONC 33.5 g/dL (32.0-36.0); Mean Corpuscular Hemoglobin 33.3 pg (27.0-31.0); Mean Corpuscular Volume 99.3 fL (78.0-98.0); RBC Distribution Width 16.3 % (11.5-14.5); Red Blood Cell (RBC) Count 4.45 mill/uL (4.70-6.10); White Blood Cell (WBC) Count 5.1 thou/uL (4.8-10.8)
[2020-05-25 13:09] LABS: #Basophils 0.1 thou/uL (0.0-0.2); #Monocytes 0.4 thou/uL (0.11-0.59); #Neutrophils 3.6 thou/uL (1.40-6.50); %Basophils 1.2 % (0.0-1.0); %Eosinophils 0.2 % (0.0-10.0); %Lymphocytes 20.5 % (21.0-51.0); %Monocytes 7.8 % (0.0-10.0); %Neutrophils 70.2 % (42.0-75.0); MDiff Complete? YES; Mean Platelet Volume 10.7 fL (7.4-10.4); Platelet Count 52 thou/uL (130-400); Platelet Morphology Comment Appears Decreased; Polychromasia SLIGHT = 2-3 cells (100X) (0-2/hpf)
[2020-05-25] MEDS ORDERED: Pantoprazole 80 MG, Admixture Fee 1 EACH in Sodium Chloride 0.9% 100 ML IVPB SCH (13:15)
[2020-05-25 14:47] LABS: Troponin I 0.099 ng/mL (< 0.028)
[2020-05-25] MEDS ORDERED: Diazepam 10 MG/2 ML SYRINGE IVP SCH (14:49)
--- NOTE | 2020-05-25 14:52 | PDOC.FPRHP ---
- History of Present Illness Chief Complaint: GI bleed History of Present Illness: Mr. Erwin is a 54 yo M with hx of alcohol abuse, PE and seizures who presents for dark stool. Has been occurring the past few days. Some emesis but no blood. Has been on eliquis for PE diagnosed in April 2020 admission in which he discontinued a few days ago due to bleeding. He denies issues breathing currently. He feels weak and hasn't been eating well the past few days. Pt states has cut down to bottle of wine every few days with his last drink a few hours ago-BAL in ER is 280s and he Is tremulous and tachycardic on exam. He was was admitted a month ago due to concern for GI bleed. GI performed EGD which showed Grade D erosive esophagitis but no acute bleeding or varices. Pt endorses abdominal pain, which is epigastric, radiates to back. Has had pancreatitis before but lipase is normal today. Is requesting morphine but has hx of benzo/opiate abuse. Abd U/S in April showed hepatic steatosis. ED Course: Found to be FOBT+. Was given 1L NS, 100mcg fentanyl, 80mg IVPB protonix infusion - Allergies/Adverse Reactions Allergies Allergy/AdvReac Type Severity Reaction Status Date / Time acetaminophen [From [place]] Allergy Verified 05/14/20 13:44 haloperidol [From Haldol] Allergy Verified 05/14/20 13:44 hydrocodone [From [place]] Allergy Verified 05/14/20 13:44 ondansetron [From Zofran] Allergy Verified 05/14/20 13:45 - Home Medications Medication Instructions Recorded Confirmed Type Phenytoin Sodium Extended 200 mg PO BID #60 cap 05/02/20 05/14/20 Rx [Dilantin] Amlodipine [Norvasc] 5 mg PO DAILY 30 Days #30 tab 05/12/20 05/14/20 Rx Apixaban [Eliquis] 5 mg PO BID 30 Days #60 tablet 05/12/20 05/14/20 Rx Folic Acid [Folvite] 1 mg PO DAILY 30 Days #30 tab 05/12/20 05/14/20 Rx Multivitamin W/ Minerals 1 tab PO DAILY 30 Days #30 tab 05/12/20 05/14/20 Rx [Theragran M] Thiamine 100 mg PO DAILY 30 Days #30 tab 05/12/20 05/14/20 Rx Apixaban [Eliquis] 10 mg PO BID 3 Days #11 tab 05/15/20 05/14/20 Rx Pantoprazole Sodium [Protonix] 20 mg PO BID #60 tablet. 05/15/20 Rx - History PMHx: seizures, arrhythmia with loop recorder, ETOH abuse with previous DTs, anxiety, Grade D severe erosive esophagitis, HTN, PE PSHx: R shoulder hemiarthroplasty, appendectomy FHx: reports uncle with unknown hereditary medical condition Social: pt with inconsistnet alcohol use reported but told me he last drank 1/2 bottle of wine a few days ago, usually has one veryfew days. dipped tobacco for >10 years; denies drug use though known to have polysubstance abuse - Review of Systems General: reports: fever/chills, weight/appetite/sleep changes Eyes: denies: eye pain, vision changes ENT: denies: nasal congestion, rhinorrhea Respiratory: denies: cough, congestion, shortness of breath Cardiovascular: denies: chest pain, edema Gastrointestinal: reports: nausea, vomiting, abdominal pain, GI bleeding. denies: diarrhea, constipation Genitourinary: reports: dysuria. denies: incontinence, polyuria Skin: denies: rashes, lesions, jaundice Musculoskeletal: reports: pain. denies: tenderness, stiffness, swelling Neurological: reports: weakness. denies: numbness, syncope, seizure - Vital signs BP: 120/95, Pulse: 127, Resp: 18, Temp: 97.7 (Oral), Pain: 5, O2 sat: 97 on (Room Air), Time: 05/25/2020 14:26 Wt: [72kg] - Physical Exam Constitutional: NAD, awake, alert and oriented HEENT: normocephalic and atraumatic, PERRLA, EOMI, no scleral icterus, good dention, other (poor dentition, dry mucosal membranes) Neck: supple, FROM, trachea midline Chest: no-tender to palpation, no lesions Heart: pulses present -Heart: tachycardic Lungs: CTAB, no respiratory distress, good air movement Abdomen: soft, bowel sounds present -Abdomen: epigastric tenderness to palpation Musculoskeletal: normal structure, normal tone, ROM grossly normal Neurological: no focal deficit, CN II-XII intact -Neurological: tremulousness Skin: no rash/lesions -Skin: poor skin turgor Heme/Lymphatic: no unusual bruising or bleeding -Heme/Lymphatic: no petechia, purpura -Psychiatric: anxious affect FMR H&P: Results - Labs Result Diagrams: 05/25/20 12:46 05/25/20 11:08 Lab results: WBC 5.1 thou/uL (4.8-10.8) 05/25/20 12:46 Hgb 14.8 g/dL (14.0-18.0) 05/25/20 12:46 Hct 44.2 % (42.0-52.0) 05/25/20 12:46 MCV 99.3 fL (78.0-98.0) H 05/25/20 12:46 Plt Count 52 thou/uL (130-400) L 05/25/20 12:46 Neutrophils % 70.2 % (42.0-75.0) 05/25/20 12:46 Sodium 142 mmol/L (136-145) 05/25/20 11:08 Potassium 4.3 mmol/L (3.5-5.1) 05/25/20 11:08 Chloride 108 mmol/L (98-107) H 05/25/20 11:08 Carbon Dioxide 17 mmol/L (22-29) L 05/25/20 11:08 BUN Less than 4 mg/dL (8.4-25.7) L 05/25/20 11:08 Creatinine 0.80 mg/dL (0.7-1.3) 05/25/20 11:08 Glucose 115 mg/dL (70-105) H 05/25/20 11:08 Calcium 8.4 mg/dL (7.8-10.44) 05/25/20 11:08 Total Bilirubin 0.6 mg/dL (0.2-1.2) 05/25/20 11:08 AST 36 U/L (5-34) H 05/25/20 11:08 ALT 29 U/L (8-55) 05/25/20 11:08 Alkaline Phosphatase 130 U/L (40-110) H 05/25/20 11:08 CK-MB (CK-2) 2.7 ng/mL (0-6.6) 05/25/20 11:08 Serum Total Protein 8.2 g/dL (6.0-8.3) 05/25/20 11:08 Albumin 4.0 g/dL (3.5-5.0) 05/25/20 11:08 Lipase 27 U/L (8-78) 05/25/20 11:08 - EKG Interpretation EKG: Sinus tachycardia, no significant acute ST/T wave changes FMR H&P: A/P - Plan Disposition/LOS: 54 y/o male with a PMH significant for EtOH Abuse and SI who presents to the hospital following an episode of severe EtOH intoxication with SI. Suspect UGIB -+FOBT, Hb stable, tachycardic but suspect that is more from EtOH withdrawals -EGD in Apr showing Grade D erosive esophagitis -s/p IV protonix, will continue this -GI consulted, appreciate further recs -Strict NPO EtOH Withdrawals -Minor-tremors and tachycardia, start diazepam for symptom triggered therapy, one time dose now then PRN. Ativan for breakthrough -Last drink a few hours ago -Plasma EtOH: 282 -s/p 1L NS in ED, start banana bag and give another 1L IVF -Once PO start MVs and thiamine Indeterminate troponin -0.111,no acute ST/T wave changes, no chest pain -Likely demand from tachycardia vs. bleed -Trend Low TSH -0.34, pending t4 Grade D Severe Erosive Esophagitis - See above COVID+ - continue precautions until 05/30 per hospital policy, however I will retest si nce it has been two weeks - + serology 05/09, asymptomatic, nonhypoxic on RA Bilateral PEs with elevated pulm a. pressures -On April 2020 admission with findings on echo and CTA showing b/l extensive clot burden -Has only been on eliquis about a month, likely still present -Hold for now due to concern for acute GI bleed -Monitor respiratory status closely-consider starting heparin if resp. status decompensates until GIB can be ruled out Polysubstance Abuse -UDS: Benzos, barbituates -Patient has been counseling multiple times on cessation Anxiety -previously on wellbutrin, though this was discontinued on prior admission to avoid lowering seizure threshold -hydroxyzine prn anxiety Hx of seizures -See above HTN -continue home amlodipine Code: Full Admit: Intpt/tele PCP: None Diet: HH GI PPx: Protonix BID VTE PPx: Home eliquis Attending: PCP: none, admitted as bounceback Dispo:>48 hours FMR H&P: Upper Level - Plan Date/Time: 05/25/20 [id number] I, [], have evaluated this patient and agree with findings/plan as outlined by international exchange coordinator resident. Pertinent changes/additions are listed here.
[2020-05-25] MEDS ORDERED: Lorazepam 2 MG/ML VIAL SLOW IVP PRN (15:24)
[2020-05-25] MEDS ORDERED: Diazepam 10 MG/2 ML SYRINGE IVP PRN (15:43)
[2020-05-25 15:44] VITALS: BMI 21.1
[2020-05-25] MEDS ORDERED: Pantoprazole 40 MG VIAL IVP SCH (16:00)
[2020-05-25] MEDS ORDERED: Multivit, Adult Inj 10 ML VIAL IV SCH (16:45)
[2020-05-25] MEDS ORDERED: Multivitamins, Adult 10 ML, Folic Acid 1 MG, Thiamine HCl 100 MG in Dextrose 5 %-0.45 %... IV SCH (17:00)
[2020-05-25 19:44] LABS: Troponin I 0.127 ng/mL (< 0.028)
[2020-05-25] MEDS: Sodium Chloride 0.9% 1,000 ML IV SCH (20:30)
[2020-05-25] MEDS: Multivitamins, Adult 10 ML in Sodium Chloride 0.9% 500 ML IV SCH (20:30)
--- NOTE | 2020-05-25 20:40 | CON ---
DATE OF CONSULTATION: 05/25/2020 REASON FOR CONSULTATION: Dark stool and possible GI bleed. HISTORY OF PRESENT ILLNESS: Mr. Erwin is a 54-year-old man with history of pulmonary embolism, on chronic anticoagulant in addition to history of alcohol abuse. He reports having a 3-day history of epigastric pain associated with recurrent nausea and vomiting. During that time, he also passed dark stool narrowing, but not quite black. He previously consume vodka, but changed to half a bottle of wine a day up until three days ago. The patient was admitted a month ago at which time, he did have an upper endoscopy performed by Dr. Yono, which showed severe grade D circumferential distal erosive esophagitis and gastritis. The patient has not had any bowel move over the last 24 hours. Reportedly, rectal exam in the ER does show positive fecal occult blood. He also had a negative colonoscopy except for diverticulosis about a month ago. The patient's vital signs remained stable in the ER. His hemoglobin was 14. PAST MEDICAL HISTORY: 1. Pulmonary embolism. 2. Seizure disorder. 3. History of alcohol abuse. 4. Severe erosive esophagitis. 5. Hypertension. 6. Right shoulder surgery. 7. Status post appendectomy. MEDICATIONS: At home include; 1. Dilantin. 2. Amlodipine. 3. Eliquis. 4. Folic acid. 5. Multivitamin. 6. Thiamin. 7. Pantoprazole 20 mg b.i.d. SOCIAL HISTORY: The patient used to drink vodka, but reportedly changed to half a bottle of wine a day up until three days ago. He chews tobacco. He denies any recreational drug. Of note, he does have history of polysubstance abuse according to the chart. FAMILY HISTORY: Negative for any known GI problem, liver disease, or GI malignancy. REVIEW OF SYSTEMS: Ten-point review of systems negative for any other symptoms not reported above. PHYSICAL EXAMINATION: VITAL SIGNS: Temperature 99.8, blood pressure 130/98, and pulse of 124. GENERAL: He is alert, conversant without distress. HEENT: Shows anicteric sclerae. NECK: Supple. No adenopathy. CV: Shows normal S1 and S2. Regular rate and rhythm. CHEST: Shows a breath sounds. ABDOMEN: Soft. No distention. No tympany. No palpable liver edge. He has active bowel sounds. RECTAL: Shows an empty vault. No hemorrhoids. EXTREMITIES: No edema. LABORATORY DATA: WBCs 5.1, hemoglobin 14.8 at noon, now 13.0 at 7 p.m., and platelet count of 52. INR 1.2. Electrolytes within normal range. Creatinine 0.8, bilirubin 0.6, AST 36, ALT 29, alkaline phosphatase 130, and lipase 27. ASSESSMENT: The patient reports a 3-day history of epigastric pain associated with dark stool. Rectal exam tonight did not confirm any melena. However, the patient is on Eliquis and we will require Eliquis for his pulmonary embolism. Esophagogastroduodenoscopy last month showed severe erosive esophagitis and colonoscopy was normal. No signs of severe bleeding at the present time. RECOMMENDATION: 1. Continue with pantoprazole as ordered 40 mg IV twice daily. 2. As the patient will require ongoing anticoagulant for his PE, we will proceed with upper endoscopy in the a.m. to rule out any source of bleeding. Resumption of Eliquis will depend on endoscopic finding. 3. Clear liquids, n.p.o. after midnight for EGD in a.m. Job ID: [id number]
[2020-05-25] MEDS ORDERED: Lorazepam 1 MG TAB PO PRN (21:17)
[2020-05-25] MEDS ORDERED: Diazepam 5 MG TAB PO PRN (21:41)
[2020-05-26] MEDS ORDERED: Promethazine 25 MG TAB PO PRN (00:23)
[2020-05-26] MEDS ORDERED: Promethazine HCl 25 MG/ML VIAL IM PRN ×2 (00:23→13:48)
[2020-05-26] MEDS: Sodium Chloride 0.9% 1,000 ML IV SCH ×2 (01:43→16:14)
[2020-05-26] MEDS: Pantoprazole 40 MG VIAL IVP SCH ×2 (05:20→15:49)
[2020-05-26 05:30] LABS: #Monocytes 0.5 thou/uL (0.11-0.59); #Neutrophils 4.5 thou/uL (1.40-6.50); %Basophils 0.6 % (0.0-1.0); %Eosinophils 0.4 % (0.0-10.0); %Lymphocytes 16.7 % (21.0-51.0); %Monocytes 8.1 % (0.0-10.0); %Neutrophils 74.2 % (42.0-75.0); Hemoglobin 13.4 g/dL (14.0-18.0); Mean Corpuscular HGB CONC 32.5 g/dL (32.0-36.0); Mean Corpuscular Hemoglobin 32.5 pg (27.0-31.0); Mean Platelet Volume 11.2 fL (7.4-10.4); Platelet Count 40 thou/uL (130-400); RBC Distribution Width 16.3 % (11.5-14.5); Red Blood Cell (RBC) Count 4.11 mill/uL (4.70-6.10); White Blood Cell (WBC) Count 6.1 thou/uL (4.8-10.8)
[2020-05-26 05:58] LABS: ALT (SGPT) 25 U/L (8-55); AST (SGOT) 24 U/L (5-34); Albumin 3.4 g/dL (3.5-5.0); Alkaline Phosphatase 118 U/L (40-110); Anion Gap 17 mmol/L (10-20); BUN (Urea Nitrogen) 6 mg/dL (8.4-25.7); Bilirubin, Total 1.6 mg/dL (0.2-1.2); Calc. Creatinine Clearance 104 mL/min (70-130); Calcium 8.5 mg/dL (7.8-10.44); Carbon Dioxide 21 mmol/L (22-29); Chloride 104 mmol/L (98-107); Estimated GFR-MDRD Greater than 90; Globulin 3.5 g/dL (2.4-3.5); Glucose 91 mg/dL (70-105); Potassium 3.9 mmol/L (3.5-5.1); Protein, Total 6.9 g/dL (6.0-8.3); Sodium 138 mmol/L (136-145)
--- NOTE | 2020-05-26 06:28 | PDOC.FM ---
- Subjective Subjective: Pt is a 54 yo gentleman with PMH significant for alcohol abuse, PE requiring anti-coag who presents for anxiousness/withdrawals, GI bleed in the setting of gastritis. He is anxious today. He does not have visual hallucinations. His HR has been elevated. His last drink was 2 days ago. He denies fever, chills, N/V, diarrhea, constipation. - Objective Vital Signs & Weight: Vital Signs (12 hours) Temp Pulse Resp BP BP Pulse Ox 05/26/20 04:00 98.9 F 122 H 20 124/89 124/89 94 L 05/25/20 23:32 98.9 F 124 H 20 132/100 H 132/100 H 96 05/25/20 21:40 147/109 H 05/25/20 20:00 99.1 F 135 H 20 147/109 H 95 Weight Weight 61.144 kg I&O: 05/24/20 05/25/20 05/26/20 06:59 06:59 06:59 Output Total 350 Balance -350 Result Diagrams: 05/26/20 04:44 05/26/20 04:44 Phys Exam - Physical Examination anxious appearing HEENT: PERRLA, moist MMs Neck: no JVD, full ROM Respiratory: no wheezing, clear to auscultation bilateral Cardiovascular: no significant murmur tachycardic Gastrointestinal: soft, no distention tender to RUQ Musculoskeletal: no edema, pulses present Dx/Plan (1) COVID-19 Code(s): U07.1 - COVID-19 Status: Acute (2) Tachycardia Code(s): R00.0 - TACHYCARDIA, UNSPECIFIED Status: Acute (3) Alcohol abuse Code(s): F10.10 - ALCOHOL ABUSE, UNCOMPLICATED Status: Chronic (4) Anxiety Code(s): F41.9 - ANXIETY DISORDER, UNSPECIFIED Status: Chronic (5) Erosive esophagitis Code(s): K22.10 - ULCER OF ESOPHAGUS WITHOUT BLEEDING Status: Chronic (6) Pulmonary embolism, bilateral Code(s): I26.99 - OTHER PULMONARY EMBOLISM WITHOUT ACUTE COR PULMONALE Status: Resolved - Plan Plan: 54 y/o male with a PMH significant for EtOH Abuse and SI who presents to the hospital following an episode of severe EtOH intoxication with SI. Suspect UGIB -+FOBT, Hb stable, tachycardic but suspect that is more from EtOH withdrawals -EGD in Apr showing Grade D erosive esophagitis -s/p IV protonix, will continue this -GI consulted, appreciate further recs -Strict NPO -Nurses will place IV when he goes for EGD EtOH Withdrawals -Minor-tremors and tachycardia, start diazepam for symptom triggered therapy, one time dose now then PRN. Ativan for breakthrough -Last drink a few hours ago -Plasma EtOH: 282 -s/p 1L NS in ED, start banana bag and give another 1L IVF -Once PO start MVs and thiamine -ASE protocol initiated Indeterminate troponin -0.111,no acute ST/T wave changes, no chest pain --> remained indeterminate and downtrended -Likely demand from tachycardia vs. bleed vs heart strain in setting of PE Low TSH -0.34, pending t4 Grade D Severe Erosive Esophagitis - See above COVID+ - continue precautions until 05/30 per hospital policy, however I will retest since it has been two weeks - + serology 05/09, asymptomatic, nonhypoxic on RA Bilateral PEs with elevated pulm a. pressures -On April 2020 admission with findings on echo and CTA showing b/l extensive clot burden -Has only been on eliquis about a month, likely still present -Hold for now due to concern for acute GI bleed -Monitor respiratory status closely-consider starting heparin if resp. status decompensates until GIB can be ruled out Polysubstance Abuse -UDS: Benzos, barbituates -Patient has been counseling multiple times on cessation Anxiety -previously on wellbutrin, though this was discontinued on prior admission to avoid lowering seizure threshold -hydroxyzine prn anxiety Hx of seizures -See above HTN -continue home amlodipine Code: Full Admit: Intpt/tele PCP: None Diet: HH GI PPx: Protonix BID VTE PPx: Home eliquis Attending: PCP: none, [facility] Dispo:>48 hours
[2020-05-26 07:23] LABS: SARS-CoV-2 NAA Rapid Test Not Detected (NotDetected)
[2020-05-26] MEDS ORDERED: Folic Acid 0.4 MG in Admixture Fee 1 EACH SC SCH (09:00)
[2020-05-26] MEDS ORDERED: FLU VACC QS2020-21(6MOS UP)/PF 60 MCG/0.5 ML SYRINGE IM ONE (09:00)
[2020-05-26] MEDS ORDERED: PROPOFOL 200 MG/20 ML VIAL ONE (11:13)
[2020-05-26] MEDS ORDERED: Esmolol 100 MG/10 ML VIAL ONE (11:13)
[2020-05-26] MEDS ORDERED: Succinylcholine Chloride 20 MG/ML 10 ml SYRINGE FS ONE (13:08)
[2020-05-26] MEDS ORDERED: Fentanyl 100 MCG/2 ML VIAL ONE (13:08)
[2020-05-26] MEDS ORDERED: Promethazine HCl 25 MG/ML VIAL SLOW IVP PRN (13:48)
[2020-05-26] MEDS ORDERED: PACU-Morphine 4MG/ML VIAL SLOW IVP PRN (13:48)
[2020-05-26] MEDS ORDERED: Ondansetron HCl/PF 4 MG/2 ML Vial IVP PRN (13:48)
[2020-05-26] MEDS ORDERED: Lidocaine 1% PF 5 ML VIAL ONE (14:14)
--- NOTE | 2020-05-26 14:58 | OP ---
DATE OF PROCEDURE: 05/26/2020 PROCEDURE PERFORMED: Esophagogastroduodenoscopy with balloon dilation of the pylorus. PREOPERATIVE DIAGNOSES: Recurrent abdominal pain and nausea and vomiting and acid reflux. DESCRIPTION OF PROCEDURE: Informed consent was obtained from the patient. He was sedated with total intravenous anesthesia. The bite block was placed. The endoscope was advanced to the second portion of the duodenum and retroflexion was performed in the stomach. The esophagus had erosive circumferential mild grade D esophagitis of the lower 3 cm of the esophagus. There was a 4 cm hiatal hernia present. The pylorus was stenotic. The therapeutic endoscope could not be passed through the pylorus. This was dilated to 12 mm with a balloon dilator and the scope could then be passed through the pylorus. A 15 mm esophageal balloon was then placed across the pylorus and inflated to stage II, which should be 13.5 mm. There was mild oozing at the dilation site. The air and fluid were suctioned from the stomach. IMPRESSION: 1. Erosive esophagitis, mild grade D circumferential of the lower third. 2. 4 cm hiatal hernia. 3. Pyloric stenosis dilated to 13.5 mm with a balloon. RECOMMENDATIONS: 1. Proton pump inhibitor twice daily. The patient reports that he has not been taking his Prilosec over the last month since his stomach was feeling better prior to admission. 2. Follow up in the office in a month. Followup endoscopy might be indicated at that time depending on progression of symptoms. 3. Okay to restart anticoagulation tomorrow. 4. I will sign off. Please call if GI can be of assistance. Job ID: [id number]
[2020-05-26] MEDS: chlordiazePOXIDE HCl 25 MG CAP PO SCH ×2 (15:41→16:14)
[2020-05-26] MEDS: Multivitamins, Adult 10 ML in Sodium Chloride 0.9% 500 ML IV SCH (15:47)
[2020-05-26 16:36] VITALS: BP 153/92; TEMP 98
--- NOTE | 2020-05-27 14:44 | DIS ---
DATE OF ADMISSION: 05/25/2020 DATE OF DISCHARGE: 05/26/2020 RESIDENT: Bo Erwin DO ADMITTING ATTENDING: Iker Navarro MD DISCHARGE ATTENDING: Iker Navarro MD SCAFFOLDER: Gastroenterology, Dr. Yoon. PROCEDURES: EGD with balloon dilation of the pylorus. EGD revealed erosive esophagitis, mild grade D circumferential of the lower third. No evidence of bleeding. 4 cm hiatal hernia was appreciated. Pyloric stenosis was dilated to 13.5 mm with a balloon. PRIMARY DIAGNOSES: 1. Suspected upper gastrointestinal bleed. 2. Erosive esophagitis, grade D. 3. Pyloric stenosis. 4. Alcohol abuse with withdrawals. SECONDARY DIAGNOSES: 1. Asymptomatic coronavirus disease positive, positive serology on 05/09. 2. Bilateral pulmonary embolus with treatment of Eliquis. 3. Polysubstance abuse. 4. Anxiety. 5. History of seizures. 6. History of delirium tremens. 7. Hypertension. DISCHARGE MEDICATIONS: 1. Apixaban 5 mg p.o. b.i.d. 2. Dilantin 400 mg p.o. h.s. 3. Protonix 40 mg p.o. b.i.d. HISTORY OF PRESENT ILLNESS AND COURSE: Tj Erwin is a 54-year-old gentleman with a significant past medical history including alcohol withdrawals, progressing to delirium tremens, bilateral pulmonary embolisms, on Eliquis. He presented with 2 episodes with few days worth of dark stool. He did have some emesis, but denied blood. Due to his history of severe grade D erosive esophagitis, history of alcohol abuse, history of Eliquis, the patient was brought in for an EGD. On his previous EGD about a month ago, he did not have any signs of bleeding or varices. He was initially started on Protonix 80 mg b.i.d. He was then taken back for an EGD on the subsequent day, which revealed similar findings to his previous EGD. He had grade D erosive esophagitis, and he also had a balloon dilation of his pyloric stenosis. The patient tolerated the treatment well. The patient also came in with anxiety and he was initially started on p.r.n. benzodiazepines. We increase this and started him on scheduled Librium. The patient tolerated this well. After the procedure, the patient did not show signs of progression towards delirium tremens, and due to his EGD findings without bleeding we felt he was fine for discharge. He is a gentleman who does not want help with his alcohol abuse. Due to this, we did not discharge him with any benzodiazepines. He was instructed to start taking Protonix 40 mg twice a day, and to follow up with Dr. Yoon in 1 month. Followup endoscopy might be indicated at that time. Dr. Yoon stated he should restart his anticoagulation the following day after discharge. Discharge hemoglobin was 13.4 compared to an initial 14.8. INR was 1.2. He did have indeterminate troponins, which did downtrend likely secondary to demand. Of note, his plasma alcohol was 282. DISPOSITION: Stable. DISCHARGE INSTRUCTIONS: 1. Location: [facility]. 2. Diet: Heart healthy. 3. Activity: Ad warren. 4. Follow up with primary care provider at earliest convenience. 5. Follow up with Dr. Yoon in 1 month. Job ID: [id number] [id number]
== END 2020-05-26 19:51 | disposition home or self-care (01) | DRG 380 ==
LOC: ERS 10:09 → 2SW 13:44
PROVIDERS: ADMIT Family Medicine; ATTEND Family Medicine
PROC: 0D778ZZ Dilation of Stomach, Pylorus, Via Natural or Artificial Opening Endoscopic (ICD-10-PCS; principal; 2020-05-25)
PROC: 8E0ZXY6 Isolation (ICD-10-PCS; 2020-05-25)
PROC: 3E02340 Introduction of Influenza Vaccine into Muscle, Percutaneous Approach (ICD-10-PCS; 2020-05-26)
DX: K31.1 Adult hypertrophic pyloric stenosis (principal); U07.1 COVID-19; I26.99 Other pulmonary embolism without acute cor pulmonale; F10.139 Alcohol abuse with withdrawal, unspecified; K21.00 Gastro-esophageal reflux disease with esophagitis, without bleeding; K44.9 Diaphragmatic hernia without obstruction or gangrene; G40.909 Epilepsy, unspecified, not intractable, without status epilepticus; F41.9 Anxiety disorder, unspecified; I10 Essential (primary) hypertension; F17.220 Nicotine dependence, chewing tobacco, uncomplicated; F20.9 Schizophrenia, unspecified; F10.129 Alcohol abuse with intoxication, unspecified; Z88.8 Allergy status to other drugs, medicaments and biological substances; Z79.899 Other long term (current) drug therapy; Z88.5 Allergy status to narcotic agent; Z79.01 Long term (current) use of anticoagulants; Z23 Encounter for immunization
CPT/HCPCS: 36415; 80053; 80307; 82274; 82553; 83690; 84439; 84484; 85025; 85610; 85730; 86900; 86901; 87635; 90471; 90662; 90732; 93005; 96365; 96375; C9113; G0008; G0009; J2704; J3010; J3490; J7030; Q0169; U0002; U0003